=== PATIENT | female | born 1945 | race Caucasian/White ===

== ENCOUNTER → 2016-09-10 | Outpatient (CLI) | payer MEDICARE ==
--- NOTE | 2016-09-10 12:34 | MM ---
Reason for exam: additional evaluation requested from prior study. Last mammogram was performed 1 year ago. History: Patient is postmenopausal and has history of high-risk lesion on a previous biopsy at age 69. Family history of breast cancer in mother and breast cancer in 2 aunts. High risk MG stereo VAD BX LT of the left breast, September 10, 2015. Benign excisional biopsy of the left breast, 2016. Took estrogen for 3 years beginning at age 51. Physical Findings: Nurse did not find any significant physical abnormalities on exam. MG 3D Diag Mammo W/Cad AMBROSE Bilateral CC and MLO view(s) were taken. Prior study comparison: August 27, 2015, left breast MG work up mamm w CAD LT. August 23, 2015, bilateral MG 3d screening mammo w/cad. August 20, 2014, bilateral MG screening mammo w CAD. July 26, 2013, mammogram, performed at [facility]. There are scattered fibroglandular densities. Post excisional changes posterior central left breast. Asymmetric density superior anterior left breast. On spot view, it has an appearance similar to 2014 but more pronounced from 2016. A 6 month follow up recommended. These results were verbally communicated with the patient and result sheet given to the patient on 09/10/16. ASSESSMENT: Probably benign, BI-RAD 3 RECOMMENDATION: Follow-up diagnostic mammogram of the left breast in 6 months.
== END | disposition home or self-care (01) ==
LOC: RADMAMWWP 09:58
PROVIDERS: ATTEND Family Medicine
DX: R92.8 Other abnormal and inconclusive findings on diagnostic imaging of breast (principal)
CPT/HCPCS: G0204; G0279

== ENCOUNTER → 2017-03-15 | Outpatient (CLI) | payer MEDICARE ==
--- NOTE | 2017-03-15 10:53 | MM ---
Reason for exam: follow-up at short interval from prior study. Last mammogram was performed 6 months ago. History: Patient is postmenopausal and has history of high-risk lesion on a previous biopsy at age 69. Family history of breast cancer in mother and breast cancer in 2 aunts. High risk MG stereo VAD BX LT of the left breast, September 10, 2015. Benign excisional biopsy of the left breast, 2016. Took estrogen for 3 years beginning at age 51. Physical Findings: Nurse did not find any significant physical abnormalities on exam. MG 3D Diag Mammo W/Cad LT CC, MLO, and XCCM view(s) were taken of the left breast. Prior study comparison: September 10, 2016, bilateral MG 3d diag mammo w/cad AMBROSE. August 27, 2015, left breast MG work up mamm w CAD LT. There are scattered fibroglandular densities. The previous subareolar asymmetry is less defined. No significant new findings when compared with previous films. These results were verbally communicated with the patient and result sheet given to the patient on 03/15/17. ASSESSMENT: Negative, BI-RAD 1 RECOMMENDATION: Routine screening mammogram of both breasts in 6 months.
== END | disposition home or self-care (01) ==
LOC: RADMAMWWP 09:50
PROVIDERS: ATTEND Family Medicine
DX: R92.8 Other abnormal and inconclusive findings on diagnostic imaging of breast (principal)
CPT/HCPCS: G0206; G0279

== ENCOUNTER → 2017-11-15 | Outpatient (CLI) | payer MEDICARE ==
--- NOTE | 2017-11-17 10:58 | MM ---
Reason for exam: screening (asymptomatic). Last mammogram was performed 8 months ago. History: Patient is postmenopausal and has history of high-risk lesion on a previous biopsy at age 69. Family history of breast cancer in mother and breast cancer in 2 aunts. High risk MG stereo VAD BX LT of the left breast, September 10, 2015. Benign excisional biopsy of the left breast, 2015. Took estrogen for 3 years beginning at age 51. Physical Findings: A clinical breast exam by your physician is recommended on an annual basis and results should be correlated with mammographic findings. MG 3D Screening Mammo W/Cad Bilateral CC and MLO view(s) were taken. Prior study comparison: March 15, 2017, left breast MG 3d diag mammo w/cad LT. September 10, 2016, bilateral MG 3d diag mammo w/cad AMBROSE. The breast tissue is heterogeneously dense. This may lower the sensitivity of mammography. No suspicious abnormality. Post biopsy change on the left. No significant changes when compared with prior studies. ASSESSMENT: Benign, BI-RAD 2 RECOMMENDATION: Routine screening mammogram of both breasts in 1 year.
== END | disposition home or self-care (01) ==
LOC: RADMAMWWP 14:24
PROVIDERS: ATTEND Family Medicine
DX: Z12.31 Encounter for screening mammogram for malignant neoplasm of breast (principal)
CPT/HCPCS: 77063; 77067

== ENCOUNTER → 2018-12-23 | Outpatient (CLI) | payer MEDICARE ==
--- NOTE | 2018-12-28 09:11 | MM ---
Reason for exam: screening (asymptomatic). Last mammogram was performed 1 year and 1 month ago. History: Patient is postmenopausal and has history of high-risk lesion on a previous biopsy at age 69. Family history of breast cancer in mother and breast cancer in 2 aunts. High risk MG stereo VAD BX LT of the left breast, September 10, 2015. Benign excisional biopsy of the left breast, 2015. Took estrogen for 3 years beginning at age 51. Physical Findings: A clinical breast exam by your physician is recommended on an annual basis and results should be correlated with mammographic findings. MG 3D Screening Mammo W/Cad Bilateral CC and MLO view(s) were taken. Prior study comparison: November 15, 2017, bilateral MG 3d screening mammo w/cad. March 15, 2017, left breast MG 3d diag mammo w/cad LT. There are scattered fibroglandular densities. No significant changes when compared with prior studies. ASSESSMENT: Negative, BI-RAD 1 RECOMMENDATION: Routine screening mammogram of both breasts in 1 year.
== END | disposition home or self-care (01) ==
LOC: RADMAMWWP 13:02
PROVIDERS: ATTEND Family Medicine
DX: Z12.31 Encounter for screening mammogram for malignant neoplasm of breast (principal)
CPT/HCPCS: 77063; 77067

== ENCOUNTER → 2020-07-05 | Outpatient (CLI) | payer MEDICARE ==
--- NOTE | 2020-07-09 08:37 | MM ---
Reason for exam: screening (asymptomatic). Last mammogram was performed 1 year and 6 months ago. History: Patient is postmenopausal and has history of high-risk lesion on a previous biopsy at age 69. Family history of breast cancer in mother at age 82, breast cancer in maternal aunt, and breast cancer in aunt. High risk MG stereo VAD BX LT of the left breast, September 10, 2015. Benign excisional biopsy of the left breast, 2016. Took estrogen for 3 years beginning at age 51. Took progesterone for 3 years beginning at age 51. Physical Findings: A clinical breast exam by your physician is recommended on an annual basis and results should be correlated with mammographic findings. MG 3D Screening Mammo W/Cad Bilateral CC and MLO view(s) were taken. Prior study comparison: December 23, 2018, bilateral MG 3d screening mammo w/cad. November 15, 2017, bilateral MG 3d screening mammo w/cad. There are scattered fibroglandular densities. Global asymmetry is unchanged. No significant changes when compared with prior studies. ASSESSMENT: Benign, BI-RAD 2 RECOMMENDATION: Routine screening mammogram of both breasts in 1 year.
== END ==
LOC: RADMAMWWP 13:54
PROVIDERS: ATTEND Family Medicine
DX: Z12.31 Encounter for screening mammogram for malignant neoplasm of breast (principal)
CPT/HCPCS: 77063; 77067

== ENCOUNTER → 2021-10-02 | Outpatient (CLI) | payer MEDICARE ==
--- NOTE | 2021-10-03 12:39 | MM ---
Reason for Exam: Screening (asymptomatic). Last mammogram was performed 1 year(s) and 3 month(s) ago. Patient History: Menarche at age 16. First Full-Term at age 20. Left ovary removed at age 51. Right ovary removed at age 51. Hysterectomy at age 51. Postmenopausal. Estrogen for 3 years from age 51 until age 54. Progesterone for 3 years from age 51 until age 54. 2016, Benign Excisional Biopsy on the left side. 09/10/2015, High risk Core Biopsy on the left side. Maternal aunt had breast cancer. Maternal aunt had breast cancer. Mother had breast cancer, age 82. Risk Values: Jessy 5 year model risk: 4.5%. NCI Lifetime model risk: 10.1%. Prior Study Comparison: 11/15/2017 Bilateral Screening Mammogram, [facility]. 12/23/2018 Bilateral Screening Mammogram, [facility]. 07/05/2020 Bilateral Screening Mammogram, [facility]. Tissue Density: There are scattered fibroglandular densities. Findings: Analyzed By CAD. There are some punctate regional calcifications within the posterior inferior right breast 7:00 position which appear to be increasing in number. Closer evaluation pain medication views is recommended. Left breast appears stable. Overall Assessment: Incomplete: need additional imaging evaluation, BI-RAD 0 Management: Diagnostic Mammogram of the right breast. A negative mammogram report should not preclude additional follow up of suspicious palpable abnormalities. Patient should continue monthly self breast exam. A clinical breast exam by your physician is recommended on an annual basis and results should be correlated with mammographic findings. Electronically signed and approved by: Morgan Fletcher D.O. Radiologis
== END | disposition home or self-care (01) ==
LOC: RADMAMWWP 10:32
PROVIDERS: ATTEND Family Medicine
DX: Z12.31 Encounter for screening mammogram for malignant neoplasm of breast (principal); Z78.0 Asymptomatic menopausal state; Z80.3 Family history of malignant neoplasm of breast
CPT/HCPCS: 77063; 77067

== ENCOUNTER → 2021-10-07 | Outpatient (CLI) | payer MEDICARE ==
--- NOTE | 2021-10-07 14:32 | MM ---
Reason for Exam: Additional evaluation requested from abnormal screening. Last screening mammogram was performed less than 1 month ago. Patient History: Menarche at age 16. First Full-Term at age 20. Left ovary removed at age 51. Right ovary removed at age 51. Hysterectomy at age 51. Postmenopausal. Estrogen for 3 years from age 51 until age 54. Progesterone for 3 years from age 51 until age 54. 2016, Benign Excisional Biopsy on the left side. 09/10/2015, High risk Core Biopsy on the left side. Maternal aunt had breast cancer, age 60. Maternal aunt had breast cancer, age 62. Mother had breast cancer, age 82. Risk Values: Jessy 5 year model risk: 4.5%. NCI Lifetime model risk: 10.1%. Prior Study Comparison: 05/02/2012 Screening Mammogram, [facility]. 07/26/2013 Screening Mammogram, [facility]. 08/20/2014 Bilateral Screening Mammogram, [facility]. 08/23/2015 Bilateral Screening Mammogram, [facility]. 08/27/2015 Left Diagnostic Mammogram, [facility]. 09/10/2016 Bilateral Diagnostic Mammogram, [facility]. 11/15/2017 Bilateral Screening Mammogram, [facility]. 12/23/2018 Bilateral Screening Mammogram, [facility]. 07/05/2020 Bilateral Screening Mammogram, [facility]. 10/02/2021 Bilateral MG 3D screening mammo w/cad, [facility]. Tissue Density: Right: There are scattered fibroglandular densities. Findings: Analyzed By CAD. Far posterior inferior loosely grouped/regional microcalcifications show slight increase from older priors. These appear round and punctate and a benign etiology is suggested. Six-month follow-up recommended. Overall Assessment: Probably benign, BI-RAD 3 Management: Diagnostic Mammogram of the right breast in 6 months. 1. Six-month follow-up diagnostic right breast mammogram for far posterior loosely grouped/regional microcalcifications that have slightly increased. Intubation should continue monthly self breast exams. 3. This exam should not preclude additional follow-up of suspicious palpable abnormalities. Results were given to the patient verbally at the time of exam. Electronically signed and approved by: Britany Shahid M.D. Radiologist
== END | disposition home or self-care (01) ==
LOC: RADMAMWWP 13:35
PROVIDERS: ATTEND Family Medicine
DX: R92.8 Other abnormal and inconclusive findings on diagnostic imaging of breast (principal); Z80.3 Family history of malignant neoplasm of breast
CPT/HCPCS: 77065; G0279; 77061

== ENCOUNTER → 2022-03-17 | Outpatient (CLI) | payer MEDICARE ==
[2022-03-17 15:39] LABS: HCT 42.4 % (34.0-46.0); Hypochromasia Slight; MCH 31.7 pg (25.0-35.0); MCV 96.1 fL (80.0-100.0); Mean Platelet Volume 14.2; Platelet Count 139 k/uL (150-450); RBC 4.41 m/uL (3.80-5.40); RDW 12.3 % (11.5-15.5); WBC 8.1 k/uL (3.8-10.6)
[2022-03-17 15:49] LABS: African American GFR (CKD) 77 (>60 ml/min/1.73 sqM); Anion Gap 8 mmol/L; Blood Urea Nitrogen 17 mg/dL (7-17); Calcium 9.4 mg/dL (8.4-10.2); Carbon Dioxide 27 mmol/L (22-30); Chloride 104 mmol/L (98-107); Glucose 112 mg/dL (74-99); Non-African American GFR(CKD) 67 (>60 ml/min/1.73 sqM); Sodium 139 mmol/L (137-145)
[2022-03-17 16:03] LABS: INR 0.9 (<1.2); Partial Thromboplastin Time 25.1 sec (22.0-30.0); Prothrombin Time 10.2 sec (9.0-12.0)
== END | disposition home or self-care (01) ==
LOC: LABPAT 14:16
PROVIDERS: ATTEND Internal Medicine Interventional Cardiology
DX: I25.10 Atherosclerotic heart disease of native coronary artery without angina pectoris (principal)
CPT/HCPCS: 80048; 85027; 85610; 85730

== ENCOUNTER 2022-03-18 05:40 | Inpatient (IN) | payer MEDICARE ==
[2022-03-18] MEDS ORDERED: NITROGLYCERIN SL TABS 0.4 MG TAB SUBLINGUAL PRN (05:51)
[2022-03-18] MEDS ORDERED: ALPRAZolam 0.5 MG TAB PO PRN (05:51)
[2022-03-18] MEDS ORDERED: ALPRAZolam 0.25 MG TAB PO PRN (05:51)
[2022-03-18] MEDS: SODIUM CHLORIDE 0.9% 1,000 ML in EMPTY BAG 1 BAG IV SCH ×2 (06:20→16:48)
[2022-03-18] MEDS ORDERED: HEPARIN SODIUM,PORCINE 10,000 UNIT in SODIUM CHLORIDE 0.9% 1,000 ML IRRIGATION PRN (07:00)
[2022-03-18] MEDS ORDERED: HEPARIN SODIUM,PORCINE 2,500 UNIT in SODIUM CHLORIDE 0.9% 250 ML IRRIGATION PRN (07:00)
[2022-03-18] MEDS ORDERED: ASPIRIN 325 MG TAB PO ONE (07:00)
[2022-03-18] MEDS ORDERED: ATORVASTATIN 80 MG TAB PO ONE (07:00)
[2022-03-18] MEDS ORDERED: VERAPAMIL 2.5 MG/ML 2 ML AMP ONE ×2 (07:16→07:37)
[2022-03-18] MEDS ORDERED: MIDAZOLAM 2 MG/2 ML VIAL IV ONE (07:23)
[2022-03-18] MEDS ORDERED: HEPARIN SODIUM 1,000 UN/ML (10ML VL) ONE (07:24)
[2022-03-18] MEDS ORDERED: LIDOCAINE 1% INJ 10MG/ML (5 ML VIAL-PF) SQ ONE (07:24)
[2022-03-18] MEDS ORDERED: VERAPAMIL SYRINGE (5 MG/10 ML) INTRAARTER ONE (07:26)
[2022-03-18] MEDS ORDERED: fentaNYL (PF) 50 MCG/ML 2 ML AMP ONE (07:27)
[2022-03-18] MEDS ORDERED: fentaNYL (PF) 50 MCG/ML 2 ML AMP IV ONE (07:29)
[2022-03-18] MEDS ORDERED: HEPARIN SODIUM 1,000 UN/ML (10ML VL) IV ONE ×3 (07:29→09:45)
[2022-03-18] MEDS ORDERED: HEPARIN SOD,PORK IN 0.45% NACL 25,000 UNIT in 0.45% NACL 1 250ML.BAG IV SCH (07:45)
[2022-03-18] MEDS ORDERED: IOPAMIDOL-370 100ML BTL INJ ONE (07:46)
[2022-03-18] MEDS ORDERED: ATORVASTATIN 80 MG TAB PO STA (07:48)
--- NOTE | 2022-03-18 08:31 | CC ---
CARDIAC CATHETERIZATION REPORT PROCEDURES: Left heart catheterization, coronary angiography. PERFORMED BY: Dr. Jeff Barajas Moderate conscious sedation time was 18 minutes. The patient was administered Versed. Oxygen saturation, hemodynamics, and EKGs were monitored closely. CLINICAL INFORMATION: Mrs. Maria Isabel Shirley is a 76-year-old lady with a known history of CAD, suffered from an acute inferior ST-elevation DC in January 2014. At that time, I performed stenting of distal RCA with excellent result. She had no significant disease in left main, LAD, or circumflex. She has been doing well until about 4 days ago when she started having episodes of chest tightness, pressure, and shortness of breath, requiring multiple sublingual nitroglycerin daily. I saw her in the office yesterday and noted that she was also in atrial fibrillation with a controlled ventricular rate. I advised prompt cardiac cath and brought in for the procedure early this morning. Risks, benefits, options, rationale were explained to the patient and her daughter. PROCEDURE NOTE: Under local anesthesia and strict aseptic precautions, a 6-Kinyarwanda introducer was placed in the right radial artery. Using a JL3.5 and JR4 catheters, I performed coronary angiography, and the same right Naida catheter was used to check LV pressure, but I did not perform an LV-gram. The sheath was taken out, and a TR band applied as per protocol. The patient was sent to the room in a stable condition. I have advised her to have urgent aortocoronary bypass surgery given her significant severe CAD and left main stenosis of 95% with thrombus. CARDIAC CATHETERIZATION FINDINGS: The left ventricular end-diastolic pressure was about 15 mmHg, and there was a 5 to 7 mm gradient on pullback. CORONARY ANGIOGRAPHY FINDINGS: RIGHT CORONARY ARTERY: This is a very dominant vessel that was stented in 2013. Distally the stented area has about a 55% narrowing with some haziness. It bifurcates into PDA and PLV. PLV has a 40% narrowing. PDA has no significant disease. There is some haziness in the stented area, and the lesion is about 55% to 60%. LEFT MAIN CORONARY ARTERY: This is a short patent vessel. In the proximal and mid portion, no significant disease. Distally just before bifurcation, there is a 95% stenosis with thrombus. The stenosis extends from the left main into the LAD and also into the circumflex. LEFT ANTERIOR DESCENDING CORONARY ARTERY: This vessel has a 90% stenosis as it comes off from the left main, and the stenosis extends from the left main into the LAD in the ostial portion. Beyond it, the caliber of LAD is good. It gives off a good-sized diagonal branch proximally, runs toward the apex. Flow is somewhat sluggish. However, the LAD has a 90% stenosis. Left main has a 95% stenosis with thrombus. LEFT POSTERIOR CIRCUMFLEX CORONARY ARTERY: This is a technically nondominant vessel, but is a large good-sized obtuse marginal. This vessel has ostial lesion of about 95% with haziness suggestive of thrombus. The circumflex is a good-sized graftable vessel. Left ventriculogram was not performed. FINAL IMPRESSION: This patient has slightly elevated filling pressures. A gradient of about 5 to 10 mmHg across the aortic valve. There is a 95% distal left main, proximal left anterior descending, and proximal circumflex lesion with haziness and thrombus. This is a significant progression of disease. Right coronary artery in the previous stented area in the distal portion has lot of haziness with a 60% narrowing. The posterior descending artery and PLV are of good size, and right coronary artery is dominant. RECOMMENDATIONS: I am recommending urgent aortocoronary bypass surgery with grafts to LAD, circumflex marginal, and also to the PDA and PLV branches of RCA, which is a super dominant vessel. The patient will be on a heparin drip, and her medicines will be resumed. She will go to the ICU. I am recommending urgent aortocoronary bypass surgery, preferably today. I will be speaking to Dr. Squires, with whom I already briefly spoke and mentioned to him about the need for urgent surgery. MMODL / IJN: [id number] /
[2022-03-18 08:35] LABS: ALT 20 U/L (4-34); AST 23 U/L (14-36); African American GFR (CKD) 80 (>60 ml/min/1.73 sqM); Albumin 4.1 g/dL (3.5-5.0); Alkaline Phosphatase 90 U/L (38-126); Anion Gap 7 mmol/L; Blood Urea Nitrogen 15 mg/dL (7-17); Calcium 9.2 mg/dL (8.4-10.2); Carbon Dioxide 25 mmol/L (22-30); Chloride 107 mmol/L (98-107); Glucose 131 mg/dL (74-99); Magnesium 1.9 mg/dL (1.6-2.3); Non-African American GFR(CKD) 70 (>60 ml/min/1.73 sqM); Potassium 4.1 mmol/L (3.5-5.1); Sodium 139 mmol/L (137-145); Total Protein 6.8 g/dL (6.3-8.2)
[2022-03-18] MEDS ORDERED: METOPROLOL TARTRATE 12.5 MG TAB PO SCH (09:00)
[2022-03-18 09:01] LABS: HCT 39.5 % (34.0-46.0); HGB 13.2 gm/dL (11.4-16.0); MCH 31.4 pg (25.0-35.0); MCHC 33.3 g/dL (31.0-37.0); MCV 94.3 fL (80.0-100.0); Mean Platelet Volume 13.9; Platelet Count 126 k/uL (150-450); RBC 4.19 m/uL (3.80-5.40); RDW 12.6 % (11.5-15.5); WBC 8.4 k/uL (3.8-10.6)
[2022-03-18 09:03] LABS: Glucose,Whole Blood 118 mg/dL (70-110)
--- NOTE | 2022-03-18 09:10 | P.GSCN ---
History of Present Illness Consult date: 03/18/22 Reason for Consult: Coronary artery disease with left main disease Requesting physician: Jeff Barajas History of present illness: This is 76-year-old female patient who follows in the outpatient setting with Dr. Patino for primary care and Dr. Barajas for cardiology. She has a previous medical history of coronary artery disease with myocardial infarction in 2014 status post PCI to the RCA, hypertension, hyperlipidemia, new onset slow atrial fibrillation, remote history of pulmonary embolism, remote history of pneumonia, never smoker, morbid obesity, and family history of premature coronary artery disease with father having multiple myocardial infarctions before the age of 60. Apparently she has been symptomatic with shortness of breath and chest pain over the previous one and a half months, worse with exertion and similar to when she had her myocardial production in 2014. She has been utilizing sublingual nitro quite frequently which does relieve her symptoms, and she was started on Imdur recently with some improvement. She was seen yesterday in the office by Dr. Barajas and recommended to undergo heart catheterization which was completed today and which demonstrated significant distal left main stenosis 95% with thrombus. Due to these findings consultation was placed to Dr. Squires from cardiothoracic surgery for surgical recommendations. Of note she did have a transthoracic echocardiogram in the office in January 2022 demonstrating EF 55%, grade 2 diastolic dysfunction, moderate mitral regurgitation, and mild tricuspid regurgitation. She has been maintained on aspirin, statin, beta sherry, Imdur, and enalapril. Review of Systems Review of systems was completed and is negative except as noted - Cardiovascular Reports as per HPI, Reports chest pain, Reports dyspnea on exertion, Reports shortness of breath Past Medical History Past Medical History: Coronary Artery Disease (CAD), Chest Pain / Angina, Hyperlipidemia, Hypertension, Myocardial Infarction ([place]), Pulmonary Embolus ([place]), Sleep Apnea/CPAP/BIPAP Last Myocardial Infarction Date:: 02/18/14 History of Any Multi-Drug Resistant Organisms: None Reported Past Surgical History: Heart Catheterization With Stent, Hysterectomy Past Anesthesia/Blood Transfusion Reactions: No Reported Reaction Date of Last Stent Placement:: 02/18/14 Past Psychological History: No Psychological Hx Reported Smoking Status: Never smoker Past Alcohol Use History: None Reported Past Drug Use History: None Reported - Past Family History Father Family Medical History: Myocardial Infarction ([place]) Additional Family Medical History / Comment(s): Premature coronary artery disease, multiple myocardial infarctions, at 66 Mother Family Medical History: Cancer, Vascular Disorder Medications and Allergies Home Medications Medication Instructions Recorded Confirmed Type Meclizine [Antivert] 12.5 mg PO TID PRN 02/18/14 03/18/22 History Multivitamins, Thera [Multivitamin 1 each PO DAILY@1200 02/18/14 03/18/22 History (formulary)] Humbird-3 Fatty Acids/Fish Oil [Fish 1 each PO DAILY 02/18/14 03/18/22 History Oil 1,000 mg Softgel] Omeprazole [PriLOSEC] 20 mg PO AC-[id number] 02/18/14 03/18/22 History hydroCHLOROthiazide [Hydrodiuril] 25 mg PO DAILY 02/18/14 03/18/22 History Enalapril [Vasotec] 10 mg PO BID #60 tab 02/20/14 03/18/22 Rx Nitroglycerin Sl Tabs [Nitrostat] 0.4 mg SUBLINGUAL Q5M PRN #25 tab 02/20/14 03/18/22 Rx ALPRAZolam [Xanax] 0.5 mg PO HS PRN 03/18/22 03/18/22 History Aspirin [Adult Low Dose Aspirin EC] 81 mg PO DAILY 03/18/22 03/18/22 History Atorvastatin [Lipitor] 40 mg PO HS 03/18/22 03/18/22 History Calcium Carbonate [Calcium] 500 mg PO DAILY 03/18/22 03/18/22 History Enalapril Maleate 10 mg PO BID 03/18/22 03/18/22 History Isosorbide Mononitrate ER [Imdur] 30 mg PO DAILY 03/18/22 03/18/22 History Melatonin [Melatonin Chew] 2.5 mg PO HS 03/18/22 03/18/22 History Metoprolol Succinate [Metoprolol 12.5 mg PO DAILY 03/18/22 03/18/22 History Succinate ER] traMADol HCL 50 mg PO Q6H 03/18/22 03/18/22 History Allergies Allergy/AdvReac Type Severity Reaction Status Date / Time No Known Allergies Allergy Verified 02/18/14 11:09 Surgical - Exam Vital Signs Temp Pulse Resp BP Pulse Ox 98.4 F 56 L 18 164/88 97 03/18/22 06:26 03/18/22 06:26 03/18/22 06:26 03/18/22 06:26 03/18/22 06:26 CONSTITUTIONAL: Awake and alert, appears comfortable, cooperative, well- developed, well-nourished, no pain, no acute distress EYES: Pupils equal, round, reactive to light, normal ocular movement ENT: Moist mucous membranes without oral lesions present NECK: No masses, no bruits, trachea midline RESPIRATORY: Lungs sounds clear to auscultation bilaterally. Respirations even, nonlabored. Currently on room air with oxygen saturation 97%. Strong cough. No chest wall deformities. No clubbing or cyanosis present CARDIOVASCULAR: S1, S2 present. Slow, irregular rate and rhythm, slow atrial fibrillation on telemetry. Palpable peripheral pulses bilaterally. No edema present. No calf pain or tenderness noted. Lower extremity spider veins present. Left radial Niles's test less than 8 seconds. GASTROINTESTINAL: Abdomen soft, nontender, nondistended, obese without masses or organomegaly noted. There is no rebound or guarding present. Active bowel sounds present 4 quadrants. GENITOURINARY: Deferred INTEGUMENTARY: Skin is warm and dry with evidence of good perfusion. NEUROLOGIC: Cranial nerves II through XII intact, normal coordination, no obvious motor or sensory deficits, speech is normal MUSKULOSKELETAL: Able to move all extremities, strength equal bilaterally, normal posture PSYCHIATRIC: Alert and oriented to person place and time, appropriate affect, intact judgment and insight Results - Labs 03/18/22 07:55 Abnormal Lab Results - Last 24 Hours (Table) 03/18/22 Range/Units 07:55 Glucose 131 H (74-99) mg/dL Diabetes panel 03/18/22 Range/Units 07:55 Sodium 139 (137-145) mmol/L Potassium 4.1 (3.5-5.1) mmol/L Chloride 107 (98-107) mmol/L Carbon Dioxide 25 (22-30) mmol/L BUN 15 (7-17) mg/dL Creatinine 0.83 (0.52-1.04) mg/dL Glucose 131 H (74-99) mg/dL Calcium 9.2 (8.4-10.2) mg/dL AST 23 (14-36) U/L ALT 20 (4-34) U/L Alkaline Phosphatase 90 (38-126) U/L Total Protein 6.8 (6.3-8.2) g/dL Albumin 4.1 (3.5-5.0) g/dL Calcium panel 03/18/22 Range/Units 07:55 Calcium 9.2 (8.4-10.2) mg/dL Albumin 4.1 (3.5-5.0) g/dL Pituitary panel 03/18/22 Range/Units 07:55 Sodium 139 (137-145) mmol/L Potassium 4.1 (3.5-5.1) mmol/L Chloride 107 (98-107) mmol/L Carbon Dioxide 25 (22-30) mmol/L BUN 15 (7-17) mg/dL Creatinine 0.83 (0.52-1.04) mg/dL Glucose 131 H (74-99) mg/dL Calcium 9.2 (8.4-10.2) mg/dL Adrenal panel 03/18/22 Range/Units 07:55 Sodium 139 (137-145) mmol/L Potassium 4.1 (3.5-5.1) mmol/L Chloride 107 (98-107) mmol/L Carbon Dioxide 25 (22-30) mmol/L BUN 15 (7-17) mg/dL Creatinine 0.83 (0.52-1.04) mg/dL Glucose 131 H (74-99) mg/dL Calcium 9.2 (8.4-10.2) mg/dL Total Bilirubin 1.0 (0.2-1.3) mg/dL AST 23 (14-36) U/L ALT 20 (4-34) U/L Alkaline Phosphatase 90 (38-126) U/L Total Protein 6.8 (6.3-8.2) g/dL Albumin 4.1 (3.5-5.0) g/dL - Imaging Additional studies: Heart catheterization films reviewed with Dr. Squires Assessment and Plan Assessment: 1. Significant left main coronary artery disease, symptomatic 2. History of coronary artery disease with myocardial infarction in 2014 status post PCI to the RCA 3. Hypertension 4. Hyperlipidemia, treated 5. New onset slow atrial fibrillation 6. Remote history of pulmonary embolism 7. Remote history of pneumonia 8. Never smoker 9. Morbid obesity 10. Family history of premature coronary artery disease with father having multiple myocardial infarctions before the age of 60 Plan: The patient was seen and examined at the bedside with Dr. Squires. The case was discussed between Dr. Squires and Dr. Baraajs. Preoperative testing was initiated. The usual perioperative course of open heart surgery was discussed in detail with the patient and her daughters, risks and benefits reviewed, all questions were answered. We are waiting echocardiogram to look at her mitral valve. Recommend continuing aspirin, statin, beta sherry, IV heparin. We do recommend coronary artery bypass grafting with left internal mammary artery, left radial artery harvest, possible endoscopic vein harvest, left atrial appendage ligation, timing of surgery to be determined depending on whether or not we need to add mitral valve repair. More recommendations to follow. Thank you Dr. Barajas for this consult. I have personally seen and examined the patient, performed the documentation and the assessment and plan as written. Number of minutes spent on the visit: 30. JAMIE MckenzieC
[2022-03-18 09:21] LABS: Appearance,Urine Clear (Clear); Bacteria,Urine Rare /hpf; Bilirubin,Urine Negative (Negative); Blood,Urine Negative (Negative); Color,Urine Colorless; Glucose,Urine (UA) Negative (Negative); Ketones,Urine Negative (Negative); Leukocyte Esterase,Urine Moderate (Negative); Nitrite,Urine Negative (Negative); PH, Urine 5.5 (5.0-8.0); Protein,Urine Negative (Negative); RBC,Urine <1 /hpf (0-5); Specific Gravity,Urine 1.015 (1.001-1.035); Squamous Epithelial Cell,Urine 1 /hpf (0-4); Urobilinogen,Urine <2.0 mg/dL (<2.0); WBC,Urine 3 /hpf (0-5)
[2022-03-18] MEDS ORDERED: MD COMMUNICATION TO PHARMACY 1 EACH MISC PO ONE (09:27)
[2022-03-18] MEDS ORDERED: MUPIROCIN 2% OINT 22 GM TUBE NASAL SCH (09:30)
--- NOTE | 2022-03-18 09:37 | CA ---
Transthoracic Echo Report Name: Maria Isabel Shirley Age: 76 Gender: F : 1945 Exam Date: 03/18/2022 08:08 Exam Location: [facility] Ht (in): 67 Wt (lb): 256 Ordering Physician: Jeff Barjaas MD ([id number]) Attending/Referring Phys: Jeff Barajas MD ([id number]) Neurology Epilepsy Physician Allyson Lopez RDCS Procedure CPT: Indications: left main disease/urgent CABG Cardiac Hx: Technical Quality: Contrast 1: Total Dose (mL): Contrast 2: Total Dose (mL): MEASUREMENTS (Male / Female) Normal Values 2D ECHO LV Diastolic Diameter PLAX 4.9 cm 4.2 - 5.9 / 3.9 - 5.3 cm LV Systolic Diameter PLAX 3.0 cm IVS Diastolic Thickness 1.1 cm 0.6 - 1.0 / 0.6 - 0.9 cm LVPW Diastolic Thickness 1.0 cm 0.6 - 1.0 / 0.6 - 0.9 cm LV Relative Wall Thickness 0.4 RV Internal Dim ED PLAX 3.4 cm LA Systolic Diameter LX 4.4 cm 3.0 - 4.0 / 2.7 - 3.8 cm LA Volume 64.0 cm??? 18 - 58 / 22 - 52 cm??? M-MODE Aortic Root Diameter MM 3.1 cm MV E Point Septal Separation 0.7 cm AV Cusp Separation MM 1.9 cm DOPPLER AV Peak Velocity 139.1 cm/s AV Peak Gradient 7.7 mmHg MV Area PHT 5.2 cm??? Mitral E Point Velocity 121.7 cm/s Mitral A Point Velocity 76.1 cm/s Mitral E to A Ratio 1.6 MV Deceleration Time 147.1 ms MV E' Velocity 5.8 cm/s Mitral E to MV E' Ratio 20.8 TR Peak Velocity 200.6 cm/s TR Peak Gradient 16.1 mmHg Right Ventricular Systolic Press 20.7 mmHg FINDINGS Left Ventricle Left ventricular ejection fraction is estimated at 40-45 %. Left ventricular cavity size normal. . Mildly increased septal wall thickness. Mildly increased posterior wall thickness. Mildly reduced global left ventricular systolic function. Right Ventricle Mild right ventricular dilatation. Right ventricular systolic pressure within normal limits. Right Atrium Normal right atrial size. Left Atrium Moderately increased left atrial diameter. Moderately increased left atrial volume. No evidence for an atrial septal defect. Mitral Valve Structurally normal mitral valve. Structurally normal mitral valve. No mitral stenosis,or prolapse. Trace to mild mitral regurgitation. Aortic Valve Trileaflet aortic valve. No aortic valve stenosis or regurgitation. Focal thickening of the aortic valve cusps. Tricuspid Valve Structurally normal tricuspid valve. Trace to mild tricuspid regurgitation. Pulmonic Valve Structurally normal pulmonic valve. No pulmonic regurgitation. No pulmonic stenosis. Pericardium Normal pericardium. No pericardial effusion. Aorta Normal size aortic root and proximal ascending aorta. CONCLUSIONS Left ventricular ejection fraction 40-45% Mild increased left ventricular wall thickness Moderately dilated left atrium Trace to mild mitral regurgitation Trace to mild tricuspid regurgitation RVSP 20 No pericardial effusion Previewed by: Dr. Warren Crenshaw DO (Electronically Signed) Final Date: 18 March 2022 09:36
[2022-03-18] MEDS ORDERED: PHENYLEPHRINE 10 MG/ML VIAL IV ONE (09:45)
[2022-03-18] MEDS ORDERED: MAGNESIUM SULFATE 16.24 MEQ in EMPTY SYRINGE 1 SYR IV ONE (09:45)
[2022-03-18] MEDS ORDERED: HEPARIN SODIUM,PORCINE 5,000 UNIT in SODIUM CHLORIDE 0.9% 500 ML 500 ML IV ONE (09:45)
[2022-03-18] MEDS ORDERED: CALCIUM CHLORIDE 100 MG/ML 10 ML SYRINGE IVP ONE (09:45)
[2022-03-18] MEDS ORDERED: PROTAMINE SULFATE 250 MG in EMPTY BAG 1 BAG IV ONE (09:45)
[2022-03-18] MEDS ORDERED: MANNITOL 25% 12.5 GM/50 ML VIAL IV ONE ×2 (09:45)
[2022-03-18] MEDS ORDERED: PHENYLEPHRINE 40 MG in SODIUM CHLORIDE 0.9% 250 ML IV ONE (09:45)
[2022-03-18] MEDS ORDERED: ALBUMIN HUMAN 5% 500 ML in EMPTY BAG 1 BAG IVPB ONE ×6 (09:45)
[2022-03-18] MEDS ORDERED: CARDIOPLEGIC SOLN (K+ 16 MEQ/L 1,000 ML with SOD BICARB SYR 8.4% (1 MEQ/ML) 20 ML, LIDO... PERFUSION NR ×3 (09:45)
[2022-03-18] MEDS ORDERED: CHLORHEXIDINE GLUCONATE 15 ML CUP MUCOUS MEM ONE (09:45)
[2022-03-18] MEDS ORDERED: CLEVIDIPINE BUTYRATE 25 MG in EMPTY BAG 1 BAG IV SCH (09:45)
[2022-03-18] MEDS ORDERED: ceFAZolin 1,000 MG in SODIUM CHLORIDE 0.9% IRRIGATIO 1,000 ML IRRIGATION ONE (09:45)
[2022-03-18] MEDS ORDERED: NITROGLYCERIN-D5W PMX 50 MG in DEXTROSE/WATER 1 250ML.BAG IV SCH ×2 (09:45→16:23)
[2022-03-18] MEDS ORDERED: ALBUMIN HUMAN 25% 50 ML in EMPTY BAG 1 BAG IVPB ONE (09:45)
[2022-03-18] MEDS ORDERED: NITROGLYCERIN-D5W PMX 25 MG/250 ML BTL IV ONE (09:45)
[2022-03-18] MEDS ORDERED: PROTAMINE SULFATE 10 MG/ML 25 ML VIAL IV ONE (09:45)
[2022-03-18] MEDS ORDERED: SODIUM BICARB 8.4% 50 ML SYR (1 MEQ/ML) IV ONE (09:45)
[2022-03-18] MEDS ORDERED: NOREPINEPHRINE 4 MG in SODIUM CHLORIDE 0.9% 250 ML IV SCH (09:45)
[2022-03-18] MEDS ORDERED: INSULIN REGULAR 100 UNIT in SODIUM CHLORIDE 0.9% 100 ML IV SCH (09:45)
[2022-03-18] MEDS ORDERED: PAPAVERINE 360 MG in SODIUM CHLORIDE 0.9% 90 ML IV ONE (09:45)
[2022-03-18] MEDS ORDERED: TRANEXAMIC ACID 2,000 MG in SODIUM CHLORIDE 0.9% 80 ML IV ONE ×2 (09:45→10:00)
[2022-03-18] MEDS ORDERED: DILTIAZEM 125 MG in SODIUM CHLORIDE 0.9% 100 ML IV SCH ×2 (09:45→17:30)
[2022-03-18] MEDS ORDERED: LACTATED RINGERS 1,000 ML IV SCH (10:00)
--- NOTE | 2022-03-18 10:28 | XR ---
EXAMINATION TYPE: XR chest 1V portable DATE OF EXAM: 03/18/2022 HISTORY: Shortness of breath. COMPARISON: 02/18/2014 TECHNIQUE: Single view of the chest is submitted. FINDINGS: Demonstrated are scattered senescent parenchymal change. There is no evidence for focal infiltrate. The heart is stable. Hilar and mediastinal structures are within normal limits. Degenerative changes are seen of the dorsal spine. IMPRESSION: 1. Chronic changes without evidence for acute pulmonary disease.
--- NOTE | 2022-03-18 10:49 | US ---
EXAMINATION TYPE: US carotid duplex BILAT DATE OF EXAM: 03/18/2022 COMPARISON: NONE CLINICAL HISTORY: preop cardiac surgery. HTN controlled with meds. No hx TIA. TECHNIQUE: Carotid duplex ultrasound examination. Indirect Doppler criteria was utilized. FINDINGS: EXAM MEASUREMENTS: RIGHT: Peak Systolic Velocity (PSV) cm/sec ----- Right CCA: 76.5 ----- Right ICA: 83.4 ----- Right ECA: 114.5 ICA/CCA ratio: 1.1 RIGHT: End Diastole cm/sec ----- Right CCA: 7.3 ----- Right ICA: 12.0 ----- Right ECA: 0.0 LEFT: Peak Systolic Velocity (PSV) cm/sec ----- Left CCA: 63.6 ----- Left ICA: 96.9 ----- Left ECA: 205.8 ICA/CCA ratio: 1.5 LEFT: End Diastole cm/sec ----- Left CCA: 7.6 ----- Left ICA: 12.8 ----- Left ECA: 0.0 VERTEBRALS (direction of flow): Right Vertebral: Antegrade Left Vertebral: Antegrade Rhythm: Arrhythmia FINANCE AND ADMINISTRATION MANAGER NOTES: Wall thickening. Elevated left ECA velocity. Plaque seen in left bulb and in rig ht CCA. IMPRESSION: Less than 50% stenosis of the bilateral carotid systems. Criteria for Assigning % of Stenosis / Diameter reduction (Estimation based on the indirect measurements of the internal carotid artery velocities (ICA PSV). 1. Normal (no stenosis)=ICA PSV < 125 cm/s: ratio < 2.0: ICA EDV<40 cm/s. 2. Less than 50% stenosis=ICA PSV < 125 cm/s: ratio < 2.0: ICA EDV<40 cm/s. 3. 50 to 69% stenosis=ICA PSV of 125 to 230 cm/s: ration 2.0 ? 4.0: ICA EDV 40-100 cm/s. 4. Greater than 70% stenosis to near occlusion= ICA PSV > 230 cm/s: ratio > 4.0: ICA EDV > 100 cm/s. 5. Near occlusion= ICA PSV velocities may be low or undetectable: variable ratio and ICA EDV. 6. Total occlusion=unable to detect flow.
[2022-03-18] MEDS ORDERED: PROPOFOL 10 MG/ML 20 ML VIAL IV ONE (10:52)
[2022-03-18] MEDS ORDERED: ALBUMIN HUMAN 5% (25gm) 500 ML VIAL IVPB ONE (10:52)
[2022-03-18] MEDS ORDERED: HEPARIN SODIUM,PORCINE 10,000 UNIT/ML 1 ML VIAL ONE (10:52)
[2022-03-18] MEDS ORDERED: SODIUM CHLORIDE 0.9% 100 ML BAG ONE (10:52)
[2022-03-18] MEDS ORDERED: PHENYLEPHRINE-0.9% NACL SYG 1,000 MCG/10 ML SYRINGE ONE (10:52)
[2022-03-18] MEDS ORDERED: TRANEXAMIC ACID IN NACL,ISO-OS 1,000 MG/100 ML BAG ONE (10:52)
[2022-03-18] MEDS ORDERED: fentaNYL (PF) 50 MCG/ML 50 ML VIAL ONE (10:52)
[2022-03-18] MEDS ORDERED: ceFAZolin 1,000 MG VIAL ONE (10:52)
[2022-03-18] MEDS ORDERED: PROTAMINE SULFATE 10 MG/ML 5 ML VIAL IV ONE (10:52)
[2022-03-18] MEDS ORDERED: SODIUM CHLORIDE 0.9% (PF) 10 ML VIAL ONE (10:52)
[2022-03-18] MEDS ORDERED: MIDAZOLAM HCL 10 MG/10 ML VIAL ONE (10:52)
[2022-03-18] MEDS ORDERED: NITROGLYCERIN-D5W PMX 50 MG/250 ML BOTTLE IV ONE (10:52)
[2022-03-18] MEDS ORDERED: SODIUM CHLORIDE 0.9% IRRIG 1,000 ML BTL IRRIGATION ONE (10:52)
[2022-03-18 12:18] LABS: ABG Base Excess 0.1 mmol/L; ABG Glucose Whole Blood 119 mg/dL (75-99); ABG HCO3 24 mmol/L (21-25); ABG Hematocrit 35 % (34.0-46.0); ABG Ionized Calcium 4.8 mg/dL (4.5-5.3); ABG Oxygen Saturation 99.4 % (94-97); ABG PCO2 36 mmHg (35-45); ABG PH 7.43 (7.35-7.45); ABG PO2 255 mmHg (83-108); ABG Potassium Whole Blood 3.8 mmol/L (3.4-4.5); ABG Sodium Whole Blood 142 mmol/L (135-146); ABG TCO2 25 mmol/L (19-24)
--- NOTE | 2022-03-18 12:47 | P.ANPRN ---
Procedure Note - Anesthesia - Invasive Line Arterial Line Time Out Performed: Yes (1121) Date of Procedure: 03/18/22 Time of Procedure: : Location of Patient: Phase I Preparation: Sterile Prep, Sterile Dressing Arterial Line Location: Brachial (right) Ultrasound Used: Yes Purpose - Visualization and Identification of Vasculature: Yes Needle Guage: 20g x 5 in catheter over wire Image Stored and Saved: Yes Narrative: Central line placement per sterile protocol utilized.
--- NOTE | 2022-03-18 12:49 | P.ANPRN ---
Procedure Note - Anesthesia - Invasive Line Right Central Line Time Out Performed: Yes (1122) Date of Procedure: 03/18/22 Time of Procedure: 11:33 Location of Patient: Phase I Preparation: Sterile Prep, Sterile Dressing Arterial Line Location: Brachial Ultrasound Used: Yes Purpose - Visualization and Identification of Vasculature: Yes Needle Guage: 18g angio Image Stored and Saved: Yes Narrative: Central line placement per sterile protocol utilized. +local +cvp +jwire +uneventful dilation and introduction right IJ Cordis
--- NOTE | 2022-03-18 12:50 | P.ANPRN ---
Procedure Note - Anesthesia - Invasive Line Gaylord My Time Out Performed: Yes (1122) Date of Procedure: 03/18/22 Time of Procedure: 11:44 Location of Patient: Phase I Preparation: Sterile Prep Arterial Line Location: Brachial Ultrasound Used: No Purpose - Visualization and Identification of Vasculature: No Needle Guage: 8.5f Image Stored and Saved: No Narrative: Central line placement per sterile protocol utilized. Gaylord floated in sheath in one attempt. --> wedge at 50cm. b/d. w/d 6cm to PA . Secured at 44cm.
[2022-03-18 13:15] LABS: Large Platelets Present; Lymphocytes # (M) 3.11 k/uL (1.0-4.8); Monocytes # (M) 0.17 k/uL (0-1.0); Neutrophils # (M) 5.12 k/uL (1.3-7.7); Neutrophils % (M) 61 %; Nucleated Red Blood Cells 0 /100 WBC (0-0); Total Cells Counted 100
[2022-03-18 13:32] LABS: ABG Base Excess -0.8 mmol/L; ABG Glucose Whole Blood 138 mg/dL (75-99); ABG HCO3 25 mmol/L (21-25); ABG Hematocrit 35 % (34.0-46.0); ABG Ionized Calcium 4.8 mg/dL (4.5-5.3); ABG Lactic Acid Whole Blood 0.9 mmol/L (0.5-1.6); ABG Oxygen Saturation 98.9 % (94-97); ABG PCO2 42 mmHg (35-45); ABG PH 7.38 (7.35-7.45); ABG PO2 164 mmHg (83-108); ABG Potassium Whole Blood 4.3 mmol/L (3.4-4.5); ABG Sodium Whole Blood 141 mmol/L (135-146); ABG TCO2 26 mmol/L (19-24)
[2022-03-18 14:27] LABS: ABG Base Excess -1.6 mmol/L; ABG Glucose Whole Blood 141 mg/dL (75-99); ABG HCO3 23 mmol/L (21-25); ABG Hematocrit 31 % (34.0-46.0); ABG Ionized Calcium 4.7 mg/dL (4.5-5.3); ABG Lactic Acid Whole Blood 0.9 mmol/L (0.5-1.6); ABG Oxygen Saturation 98.9 % (94-97); ABG PCO2 36 mmHg (35-45); ABG PH 7.41 (7.35-7.45); ABG PO2 171 mmHg (83-108); ABG Potassium Whole Blood 3.9 mmol/L (3.4-4.5); ABG Sodium Whole Blood 141 mmol/L (135-146); ABG TCO2 24 mmol/L (19-24)
[2022-03-18 15:22] LABS: ABG Base Excess -2.1 mmol/L; ABG Glucose Whole Blood 139 mg/dL (75-99); ABG HCO3 23 mmol/L (21-25); ABG Hematocrit 30 % (34.0-46.0); ABG Ionized Calcium 5.1 mg/dL (4.5-5.3); ABG Lactic Acid Whole Blood 0.8 mmol/L (0.5-1.6); ABG Oxygen Saturation 98.2 % (94-97); ABG PCO2 38 mmHg (35-45); ABG PH 7.38 (7.35-7.45); ABG PO2 120 mmHg (83-108); ABG Potassium Whole Blood 3.9 mmol/L (3.4-4.5); ABG Sodium Whole Blood 141 mmol/L (135-146); ABG TCO2 24 mmol/L (19-24)
[2022-03-18] MEDS ORDERED: ALBUMIN HUMAN 5% 250 ML IVPB ONE (16:15)
[2022-03-18] MEDS ORDERED: DEXTROSE 50% SYRINGE 50 ML IVP PRN ×2 (16:23)
[2022-03-18] MEDS ORDERED: DEXMEDETOMIDINE/0.9% NACL(PMX) 400 MCG in EMPTY BAG 1 BAG IV SCH (16:23)
[2022-03-18] MEDS ORDERED: Potassium Replacement Protocol 1 EACH MISC MISCELLANE PRN (16:23)
[2022-03-18] MEDS ORDERED: ONDANSETRON 4 MG/2 ML VIAL IVP PRN (16:23)
[2022-03-18] MEDS ORDERED: IPRATROPIUM-ALBUTEROL 3 ML NEB INHALATION PRN (16:23)
[2022-03-18] MEDS ORDERED: Magnesium Replacement Protocol 1 EACH MISC MISCELLANE PRN (16:23)
[2022-03-18] MEDS ORDERED: METOCLOPRAMIDE 5 MG/ML 2 ML VIAL IVP PRN (16:23)
[2022-03-18] MEDS ORDERED: BENZOCAINE/MENTHOL LOZENG 1 EACH LOZENGE MUCOUS MEM PRN (16:23)
[2022-03-18] MEDS ORDERED: AMIODARONE 360 MG in DEXTROSE 5% IN WATER 200 ML IV PRN ×2 (16:23)
--- NOTE | 2022-03-18 16:25 | P.OP ---
Date of Procedure: 03/18/22 Preoperative Diagnosis: Coronary artery disease, unstable angina, paroxysmal atrial fibrillation Postoperative Diagnosis: Same Procedure(s) Performed: Off-pump coronary artery bypass grafting 3 with RUBIN to LAD, left radial artery graft to obtuse marginal, saphenous vein graft to posterior descending coronary artery, endovascular vein harvest, endovascular radial artery harvest, modified Jha maze with bilateral pulmonary vein isolation and exclusion of the left atrial appendage. Implants: 35mm AtriCure clip Anesthesia: NIKKYA Surgeon: Alberto Squires Senior Asic Design Engineer #1: Bryn Lim Senior Asic Design Engineer #2: Erickson Lowe Estimated Blood Loss (ml): 500 IV fluids (ml): 2,000 Urine output (ml): 500 Pathology: none sent Condition: stable Disposition: ICU Indications for Procedure: 76-year-old morbidly obese female with history of right coronary stenting many years ago. She presents with worsening unstable angina over the last month. She was seen in the director operations office yesterday. She was known to have new onset paroxysmal atrial fibrillation. She was scheduled for urgent This morning and underwent cardiac catheterization demonstrating very severe tight left main coronary artery disease as well as in-stent restenosis in the right coronary artery. Urgent surgical revascularization was requested. Operative Findings: Left ventricular function was normal. Intraoperative CHANTELLE demonstrated only trace mitral regurgitation and 1+ tricuspid regurgitation. On exploring the coronary arteries, was diffuse calcification of the LAD and the right coronary system. Conduits were acceptable. Description of Procedure: The patient was brought to the operating room, placed supine on the operating table, anesthetized and intubated. The anterior torso, bilateral lower extremities and left upper extremities were sterilely prepped and draped. Greater saphenous vein was harvested from the left thigh using endovascular vein harvest technique. Simultaneous left radial artery harvest was performed with endovascular harvest technique. Simultaneous midline sternotomy was performed, the left hemisternum was retracted upwards, the left internal mammary artery was harvested on a vascularized pedicle, left intact on its origin from the subclavian and divided distally. The left pleural space was drained with a 32- Vietnamese chest tube. Standard sternal retractor was placed and the pericardium was opened in the midline. The heart was exposed with pericardial sutures. Systemic heparinization was performed and ACTs were maintained greater than 250 during grafting. Blunt dissection was carried out around the right sided pulmonary veins and they were encircled. Ablation of the left atrium at the insertion of the right sided pulmonary veins was performed with AtriCure bipolar RF clamp. 3 parallel lines were performed. Next the left-sided pulmonary veins were exposed. The ligament of Francisco was taken down with electrocautery. The veins were encircled and ablation of the left atrium at the insertion of the left pulmonary veins was carried out similar to the right. Completion of 3 lines the heart was lowered into anatomic position. Next we stabilized the proximal LAD. The LAD was diffusely calcified. It was soft in the proximal area. It was opened here and had notable back wall calcific disease. Blood flow was controlled with a 1.5 mm flow through. It was a 1.75-2 mm vessel. End-to-side anastomosis between the RUBIN and the proximal LAD was performed with running 8-0 Prolene suture. On completion of the anastomosis, the flow through was removed effectively probing the proximal and distal portion of the anastomosis. Suture was tied with good result and hemostasis and inflow was open. The KEISHA pedicle was tacked surrounding epicardium with 6-0 silk suture. Next the inferior wall was exposed. Posterior descending coronary artery was opened fairly proximally. It also was a fairly calcific vessel was opened in a soft spot. Was a 1.75 mm vessel. Blood flow was controlled 1.5 mm flow through. Saphenous vein was anastomosed in an inside fashion with running 7-0 Prolene suture. On completion anastomosis, the flow through was removed effectively probing the proximal distal portion anastomosis. Suture was tied with good result and hemostasis. Heart was lowered into anatomic position and the vein cut to appropriately to reach the ascending aorta. Backbleeding was controlled with a bulldog clamp. Next the lateral wall of the heart was exposed. Major marginal branch was identified and stabilized. It was opened fairly proximally. Was a 2 mm vessel. It had relatively less diseased present in the LAD or PDA. Blood flow was controlled 1.5 mm flow through. Anastomosis of the end of the radial to the side of the obtuse marginal was performed with running 7-0 Prolene suture. On completion anastomosis flow through was removed 50 probe the proximal distal portion anastomosis. Suture was tied with result and hemostasis. Good backbleeding was noted into the radial artery graft. The heart was lowered into anatomic position. Radial artery was brought beneath the RUBIN to the ascending aorta and cut to appropriate length. Proximal anastomoses were performed with the heartstring devices. We first applied the heartstring device low on the ascending aorta in the midline. Saphenous vein graft was anastomosed to this puncture site with 5-0 Prolene suture. On completion anastomosis the heartstring device was removed and the suture was tied with good result and hemostasis. Vein graft was de-aired with needle holes and inflow was open. Next the second heartstring device was deployed in the mid ascending aorta to the left of midline. Proximal radial artery anastomosis was performed with running 5-0 Prolene suture. On completion anastomosis heartstring device was removed the suture was tied with good result and hemostasis. Graft was de-a ired by backbleeding and then inflow open. Distal anastomoses showed good hemostasis as did the proximals. Heparin was now reversed with protamine. Good hemostasis was obtained throughout. Atrial and ventricular pacing wires were placed in the usual fashion clear Chest was irrigated with antibiotic solution. Mediastinum was drained with a 36-Vietnamese chest tube. Sternum was closed with 8 sternal wires. Fascia was closed with 0 Ethibond. Subcutaneous and subcuticular layers in the leg arm and chest were closed with layers of Vicryl suture. Dry sterile dressings were applied and the patient was transferred to the ICU in stable hemodynamic condition on no inotropic support. Patient did not require any blood transfusions.
[2022-03-18] MEDS: IPRATROPIUM-ALBUTEROL 3 ML NEB INHALATION SCH ×2 (16:39→19:44)
[2022-03-18 16:40] LABS: Glucose,Whole Blood 158 mg/dL (70-110)
[2022-03-18] MEDS ORDERED: DOPamine DRIP 800 MG in DEXTROSE/WATER 1 250ML.BAG IV SCH (16:45)
[2022-03-18] MEDS: LACTATED RINGERS 1,000 ML IV SCH (16:49)
[2022-03-18 16:56] LABS: ABG HCO3 22 mmol/L (21-25); ABG PCO2 40 mmHg (35-45); ABG PH 7.35 (7.35-7.45); ABG PO2 311 mmHg (83-108); ABG TCO2 23 mmol/L (19-24)
[2022-03-18 16:59] LABS: Allen Test Performed? no
[2022-03-18 17:02] LABS: INR 1.2 (<1.2); Ionized Calcium 5.1 mg/dL (4.5-5.3); Partial Thromboplastin Time 26.5 sec (22.0-30.0); Prothrombin Time 12.3 sec (9.0-12.0)
[2022-03-18 17:09] LABS: Basophils % (A) 0 %; Eosinophils # (A) 0.1 k/uL (0-0.7); Eosinophils % (A) 0 %; HCT 29.8 % (34.0-46.0); Lymphocytes # (A) 1.8 k/uL (1.0-4.8); Lymphocytes % (A) 13 %; MCH 31.4 pg (25.0-35.0); MCHC 33.4 g/dL (31.0-37.0); Mean Platelet Volume 14.3; Monocytes # (A) 0.4 k/uL (0-1.0); Monocytes % (A) 3 %; Neutrophils # (A) 11.6 k/uL (1.3-7.7); Neutrophils % (A) 83 %; RBC 3.17 m/uL (3.80-5.40); RDW 12.4 % (11.5-15.5); WBC 13.9 k/uL (3.8-10.6)
[2022-03-18 17:11] LABS: Platelet Count 76 k/uL (150-450)
[2022-03-18 17:11] LABS: Glucose,Whole Blood 154 mg/dL (70-110)
[2022-03-18] MEDS: CLEVIDIPINE BUTYRATE 25 MG in EMPTY BAG 1 BAG IV SCH ×2 (17:11→19:50)
[2022-03-18 17:12] LABS: ALT 14 U/L (4-34); AST 21 U/L (14-36); African American GFR (CKD) >90 (>60 ml/min/1.73 sqM); Albumin 3.7 g/dL (3.5-5.0); Alkaline Phosphatase 47 U/L (38-126); Anion Gap 7 mmol/L; Blood Urea Nitrogen 13 mg/dL (7-17); Calcium 8.5 mg/dL (8.4-10.2); Carbon Dioxide 20 mmol/L (22-30); Chloride 112 mmol/L (98-107); Glucose 142 mg/dL (74-99); Magnesium 1.6 mg/dL (1.6-2.3); Non-African American GFR(CKD) 89 (>60 ml/min/1.73 sqM); Potassium 3.8 mmol/L (3.5-5.1); Sodium 139 mmol/L (137-145); Total Bilirubin 0.9 mg/dL (0.2-1.3); Total Protein 5.4 g/dL (6.3-8.2)
[2022-03-18] MEDS: INSULIN REGULAR 100 UNIT in SODIUM CHLORIDE 0.9% 100 ML IV SCH (17:16)
--- NOTE | 2022-03-18 17:19 | XR ---
EXAMINATION TYPE: XR chest 1V portable DATE OF EXAM: 03/18/2022 COMPARISON: Today HISTORY: Cardiac surgery TECHNIQUE: Single view FINDINGS: There is right jugular catheter with tip in the main pulmonary artery. There are sternal wi res. The endotracheal tube is 4 cm from the jorje. There is left-sided chest tube. No pneumothorax. Trachea is midline. Heart size is normal. No heart failure. There is apparent drain over the heart. IMPRESSION: There is mild subsegmental atelectasis at the lung bases. No heart failure.
[2022-03-18] MEDS: HEPARIN SODIUM,PORCINE/PF 5,000 UNIT/0.5 ML SYRINGE SQ SCH ×2 (17:33→23:17)
[2022-03-18 17:59] LABS: Glucose,Whole Blood 178 mg/dL (70-110)
--- NOTE | 2022-03-18 18:04 | P.CNPUL ---
History of Present Illness Consult date: 03/18/22 Requesting physician: Alberto Squires Reason for consult: other (Mechanical ventilator/critical care management) Chief complaint: Unstable angina History of present illness: This is a 76-year-old female patient who has a history of known coronary artery disease with previous myocardial infarction and PCI to the RCA back in 2013, hyperlipidemia, hypertension, slow atrial fibrillation, pulmonary embolism, morbid obesity, lifelong nonsmoker. She was brought in today electively for cardiac catheterization after having one month complaints of chest discomfort requiring multiple tablets of sublingual nitroglycerin with symptomatic relief. Cardiac catheterization revealed 95% left main disease with thrombus. She was recommended urgent coronary artery revascularization which was performed today Dr. Squires. She had undergone off-pump coronary artery bypass grafting 3 with a RUBIN to the LAD, left radial artery to the obtuse marginal, SVG to the posterior descending artery. She is seen in the immediate postoperative setting in the ICU. Intubated on the mechanical ventilator with settings of assist control mode at a rate of 14, tidal volume 450, FiO2 50% and a PEEP of 10. Arterial bl ood gases revealed a PaO2 of 311, pCO2 of 40 and a pH of 7.34 on 100% FiO2. She is currently sedated on propofol at 25 mcg/kg/m. Insulin drip at 2 units per hour. Lactated Ringer's at 50 MLS per hour. She was bradycardic initially and placed on dopamine at 5 mcg/kg/m. She is also requiring Cleviprex at 5 mg per hour. Initial cardiac output was 3.2 with an index of 1.4 which have since improved to cardiac output of 7.4 with an index of 3.3. CVP of 16. PA pressure 44/26. Heart rate now in the 70s and 80s. Sinus rhythm. She did receive 1500 ML's of albumin. Chest x-ray reveals mild subsegmental atelectasis of the lung bases. No heart failure. Mediastinal and left-sided chest tubes in place. Right IJ [place]-My catheter in place. Sternal wires secured. No evidence of pneumothorax. There is a right brachial arterial line in place. Lower extremities to Bernabe wraps. Warming blanket in place. White count 13.9. Hemoglobin 10.0. Platelets 76,000. INR 1.2. Sodium 139. Potassium 3.8. Bicarb 20. BUN 13. Creatinine 0.61. Glucose 158. she will remain on DuoNeb inhalations every 4 hours. Receiving cefazolin. Review of Systems ROS unobtainable: due to endotracheal tube Past Medical History Past Medical History: Coronary Artery Disease (CAD), Chest Pain / Angina, Hyperlipidemia, Hypertension, Myocardial Infarction ([place]), Pulmonary Embolus ([place]), Sleep Apnea/CPAP/BIPAP Last Myocardial Infarction Date:: 02/18/14 History of Any Multi-Drug Resistant Organisms: None Reported Past Surgical History: Heart Catheterization With Stent, Hysterectomy Past Anesthesia/Blood Transfusion Reactions: No Reported Reaction Date of Last Stent Placement:: 02/18/14 Past Psychological History: No Psychological Hx Reported Smoking Status: Never smoker Past Alcohol Use History: None Reported Past Drug Use History: None Reported - Past Family History Father Family Medical History: Myocardial Infarction ([place]) Additional Family Medical History / Comment(s): Premature coronary artery disease, multiple myocardial infarctions, at 66 Mother Family Medical History: Cancer, Vascular Disorder Medications and Allergies Home Medications Medication Instructions Recorded Confirmed Type Meclizine [Antivert] 12.5 mg PO TID PRN 02/18/14 03/18/22 History Multivitamins, Thera [Multivitamin 1 each PO DAILY@1200 02/18/14 03/18/22 History (formulary)] [place]-3 Fatty Acids/Fish Oil [Fish 1 each PO DAILY 02/18/14 03/18/22 History Oil 1,000 mg Softgel] Omeprazole [PriLOSEC] 20 mg PO AC-BRKFST 02/18/14 03/18/22 History hydroCHLOROthiazide [Hydrodiuril] 25 mg PO DAILY 02/18/14 03/18/22 History Enalapril [Vasotec] 10 mg PO BID #60 tab 02/20/14 03/18/22 Rx Nitroglycerin Sl Tabs [Nitrostat] 0.4 mg SUBLINGUAL Q5M PRN #25 tab 02/20/14 03/18/22 Rx ALPRAZolam [Xanax] 0.5 mg PO HS PRN 03/18/22 03/18/22 History Aspirin [Adult Low Dose Aspirin EC] 81 mg PO DAILY 03/18/22 03/18/22 History Atorvastatin [Lipitor] 40 mg PO HS 03/18/22 03/18/22 History Calcium Carbonate [Calcium] 500 mg PO DAILY 03/18/22 03/18/22 History Enalapril Maleate 10 mg PO BID 03/18/22 03/18/22 History Isosorbide Mononitrate ER [Imdur] 30 mg PO DAILY 03/18/22 03/18/22 History Melatonin [Melatonin Chew] 2.5 mg PO HS 03/18/22 03/18/22 History Metoprolol Succinate [Metoprolol 12.5 mg PO DAILY 03/18/22 03/18/22 History Succinate ER] traMADol HCL 50 mg PO Q6H 03/18/22 03/18/22 History Allergies Allergy/AdvReac Type Severity Reaction Status Date / Time No Known Allergies Allergy Verified 02/18/14 11:09 Physical Exam Vitals: Vital Signs Temp Pulse Pulse Resp BP BP BP 03/18/22 17:35 03/18/22 17:15 83 15 134/107 03/18/22 17:00 45 L 16 134/107 03/18/22 16:59 03/18/22 16:45 49 L 16 134/107 03/18/22 16:30 93.6 F L 39 L 16 03/18/22 16:28 03/18/22 16:05 03/18/22 10:30 45 L 11 L 114/55 03/18/22 10:00 44 L 14 115/62 03/18/22 09:30 48 L 15 118/56 03/18/22 09:00 43 L 18 135/68 03/18/22 08:59 03/18/22 08:35 54 L 16 132/63 03/18/22 08:34 97.7 F 135/68 03/18/22 08:26 50 L 16 172/69 03/18/22 08:11 56 L 16 143/63 03/18/22 07:56 54 L 16 129/57 03/18/22 06:26 98.4 F 56 L 18 164/88 138/60 Pulse Ox FiO2 03/18/22 17:35 50 03/18/22 17:15 98 03/18/22 17:00 100 03/18/22 16:59 50 03/18/22 16:45 100 03/18/22 16:30 03/18/22 16:28 100 03/18/22 16:05 100 03/18/22 10:30 96 03/18/22 10:00 96 03/18/22 09:30 96 03/18/22 09:00 95 03/18/22 08:59 86 L 03/18/22 08:35 98 03/18/22 08:34 96 03/18/22 08:26 98 03/18/22 08:11 98 03/18/22 07:56 100 03/18/22 06:26 97 Intake and Output 03/18/22 03/18/22 03/18/22 06:59 14:59 22:59 Intake Total 200 503 173.556 Output Total 250 2095 Balance 200 253 -1921.444 Intake: IV 200 303 160 CO/CI 60 Lactated Ringers 1,000 ml 100 @ 50 mls/hr IV .Q20H [facility] Rx#:[id number] Sodium Chloride 0.9% 1, 150 000 ml In Empty Bag 1 bag @ 1 ML/KG/HR 116.5 mls/ hr IV .Q8H36M [facility] Rx#: [id number] Intake, IV Titration 200 13.556 Amount Clevidipine Butyrate 25 2.834 mg In Empty Bag 1 bag @ 1 MG/HR 2 mls/hr IV .Q24H [facility] Rx#:[id number] Nitroglycerin-D5w Pmx 50 1.85 mg In Dextrose/Water 1 250ml.bag @ 5 MCG/MIN 1.5 mls/hr IV .Q24H [facility] Rx#: [id number] Sodium Chloride 0.9% 1, 200 000 ml In Empty Bag 1 bag @ 1 ML/KG/HR 116.5 mls/ hr IV .Q8H36M [facility] Rx#: [id number] propofoL 1,000 mg In 8.872 Empty Bag 1 bag @ Titrate IV .Q0M [facility] Rx#: [id number] Output: Chest Tube Drainage 70 Mediastinal/Left Pleural 70 Urine 250 825 Estimated Blood Loss 1200 Other: Voiding Method Indwelling Catheter Weight 116.5 kg 118.3 kg ABP, PAP, CO, CI - Last 8 Hours Arterial Blood Pressure 178/72 Arterial Blood Pressure 128/61 Arterial Blood Pressure 149/70 Pulmonary Artery Pressure 48/30 Pulmonary Artery Pressure 43/24 Pulmonary Artery Pressure 42/25 Pulmonary Artery Pressure 40/18 Cardiac Output 3.9 Cardiac Output 4.1 Cardiac Output 3.2 Cardiac Index 1.7 Cardiac Index 1.8 Cardiac Index 1.4 GENERAL EXAM: Intubated, sedated, 76-year-old female, on the mechanical ventilator, comfortable in no apparent distress. HEAD: Normocephalic. EYES: Sluggish reaction of pupils, equal size. NOSE: Clear with pink turbinates. THROAT: Oral endotracheal and gastric tube secured in place. No erythema or exudates. NECK: Right IJ [place]-My catheter in place. No masses, no JVD. CHEST: Sternal dressing dry and intact. Heart hugger in place. Mediastinal and left chest tubes and placed to Pleur-evac LUNGS: Equal air entry with no crackles, wheeze, rhonchi or dullness. CVS: S1 and S2 normal with no audible murmur, regular rhythm. ABDOMEN: No hepatosplenomegaly, normal bowel sounds, no guarding or rigidity. SPINE: No scoliosis or deformity SKIN: No rashes CENTRAL NERVOUS SYSTEM: Sedated, tone is normal in all 4 extremities. EXTREMITIES: Right brachial arterial line in place. Bernabe wraps to the bilateral lower extremities. There is no peripheral edema. No clubbing, no cyanosis. Peripheral pulses are intact. Results - Laboratory Findings CBC and BMP: 03/19/22 03:00 03/19/22 03:00 ABG ABG pH 7.35 (7.35-7.45) 03/18/22 16:55 ABG pCO2 40 mmHg (35-45) 03/18/22 16:55 ABG pO2 311 mmHg (83-108) H 03/18/22 16:55 ABG O2 Saturation 100.0 % (94-97) H 03/18/22 16:55 PT/INR, D-dimer PT 12.3 sec (9.0-12.0) H 03/18/22 16:40 INR 1.2 (<1.2) H 03/18/22 16:40 Abnormal lab findings: Abnormal Labs 03/18/22 03/18/22 03/18/22 07:55 07:55 07:55 WBC RBC Hgb Hct Plt Count 126 L Neutrophils # PT INR ABG pO2 ABG Total CO2 ABG O2 Saturation ABG Hematocrit ABG Glucose Hemoglobin Chloride Carbon Dioxide Glucose 131 H POC Glucose (mg/dL) Total Protein Arterial Blood Glucose Ur Leukocyte Esterase Urine Bacteria Crossmatch See Detail 03/18/22 03/18/22 03/18/22 09:01 09:03 12:17 WBC RBC Hgb Hct Plt Count Neutrophils # PT INR ABG pO2 255 H ABG Total CO2 25 H ABG O2 Saturation 99.4 H ABG Hematocrit ABG Glucose 119 H Hemoglobin 11.3 L Chloride Carbon Dioxide Glucose POC Glucose (mg/dL) 118 H Total Protein Arterial Blood Glucose 119 H Ur Leukocyte Esterase Moderate H Urine Bacteria Rare H Crossmatch 03/18/22 03/18/22 03/18/22 13:31 14:27 15:21 WBC RBC Hgb Hct Plt Count Neutrophils # PT INR ABG pO2 164 H 171 H 120 H ABG Total CO2 26 H ABG O2 Saturation 98.9 H 98.9 H 98.2 H ABG Hematocrit 31 L 30 L ABG Glucose 138 H 141 H 139 H Hemoglobin 10.2 L 9.7 L Chloride Carbon Dioxide Glucose POC Glucose (mg/dL) Total Protein Arterial Blood Glucose 138 H 141 H 139 H Ur Leukocyte Esterase Urine Bacteria Crossmatch 03/18/22 03/18/22 03/18/22 16:39 16:40 16:40 WBC 13.9 H RBC 3.17 L Hgb 10.0 L D Hct 29.8 L Plt Count 76 L Neutrophils # 11.6 H PT 12.3 H INR 1.2 H ABG pO2 ABG Total CO2 ABG O2 Saturation ABG Hematocrit ABG Glucose Hemoglobin Chloride Carbon Dioxide Glucose POC Glucose (mg/dL) 158 H Total Protein Arterial Blood Glucose Ur Leukocyte Esterase Urine Bacteria Crossmatch 03/18/22 03/18/22 03/18/22 16:40 16:55 17:10 WBC RBC Hgb Hct Plt Count Neutrophils # PT INR ABG pO2 311 H ABG Total CO2 ABG O2 Saturation 100.0 H ABG Hematocrit ABG Glucose Hemoglobin Chloride 112 H Carbon Dioxide 20 L Glucose 142 H POC Glucose (mg/dL) 154 H Total Protein 5.4 L Arterial Blood Glucose Ur Leukocyte Esterase Urine Bacteria Crossmatch - Diagnostic Findings Chest x-ray: image reviewed Assessment and Plan Assessment: Unstable angina in a patient found to have significant left main disease and had undergone coronary artery bypass grafting 3 without RUBIN to the LAD, left radial artery to the OM, saphenous vein graft to the PDA. Postoperative day #0. Acute hypoxemic respiratory failure, expected outcome of surgery, currently on mechanical ventilator Recent onset of atrial fibrillation with a slow ventricular response History of coronary artery disease with previous PCI to the RCA in 2013 Morbid obesity Hypertension Hyperlipidemia Gastroesophageal reflux disease Anxiety Remote history of pulmonary embolism Lifelong nonsmoker Plan: The patient was seen and evaluated Chest x-ray, ABGs, labs and medications reviewed FiO2 decreased to 50% Continue bronchodilators Plan for early extubation protocol as tolerated Continue the current treatment plan Medication adjustments where appropriate We will continue to follow and make further recommendations based on her clinical status I have personally seen and examined the patient, performed the documentation and the assessment and plan as written. Number of minutes spent on the visit: 20. Is a joint evaluation that was done along with respect practitioner. This evaluation was done in the intensive care unit. Above-mentioned plan. The p atient was extubated within the next few hours. She is well-developed is stable. Hemodynamic parameters. We'll continue to follow. This evaluation was done in more than 30 minutes.
[2022-03-18] MEDS: POTASSIUM CHLORIDE 10 MEQ in WATER FOR INJECTION 1 100ML.BAG IVPB SCH ×2 (18:07→19:50)
[2022-03-18] MEDS: ACETAMINOPHEN IV (For NPO) 1,000 MG in EMPTY BAG 1 BAG IVPB SCH (18:07)
[2022-03-18 18:50] LABS: Glucose,Whole Blood 177 mg/dL (70-110)
[2022-03-18 19:18] LABS: Chol/HDL Ratio 2.72 Ratio; LDL Cholesterol,Calculated 84.6 mg/dL (0.0-131.0); VLDL Calculation 13.42 mg/dL (5.00-40.00)
[2022-03-18 19:23] LABS: Basophils % (A) 0 %; Eosinophils % (A) 0 %; HCT 32.5 % (34.0-46.0); HGB 10.7 gm/dL (11.4-16.0); Lymphocytes # (A) 1.5 k/uL (1.0-4.8); Lymphocytes % (A) 8 %; MCH 31.3 pg (25.0-35.0); MCHC 33.1 g/dL (31.0-37.0); MCV 94.6 fL (80.0-100.0); Mean Platelet Volume 13.6; Monocytes # (A) 0.5 k/uL (0-1.0); Monocytes % (A) 3 %; Neutrophils # (A) 15.7 k/uL (1.3-7.7); Neutrophils % (A) 88 %; Platelet Count 106 k/uL (150-450); RBC 3.43 m/uL (3.80-5.40); RDW 12.6 % (11.5-15.5); WBC 17.8 k/uL (3.8-10.6)
[2022-03-18 20:08] LABS: Glucose,Whole Blood 169 mg/dL (70-110)
[2022-03-18] MEDS: ATORVASTATIN 40 MG TAB PO SCH (20:36)
[2022-03-18 20:50] LABS: Glucose,Whole Blood 162 mg/dL (70-110)
[2022-03-18] MEDS ORDERED: LOSARTAN 25 MG TAB PO SCH (21:00)
[2022-03-18] MEDS: MAGNESIUM SULFATE-D5W PMX 1 GM in DEXTROSE/WATER 1 100ML.BAG IVPB SCH ×2 (21:05→22:31)
[2022-03-18 21:08] LABS: ABG Base Excess -4.4 mmol/L; ABG HCO3 21 mmol/L (21-25); ABG Oxygen Saturation 97.2 % (94-97); ABG PCO2 36 mmHg (35-45); ABG PH 7.37 (7.35-7.45); ABG PO2 86 mmHg (83-108); ABG TCO2 22 mmol/L (19-24); Allen Test Performed? Yes
[2022-03-18] MEDS: DEXTROSE 5% IN WATER 100 ML with AMIODARONE 150 MG IV PRN (21:44)
[2022-03-18] MEDS: AMIODARONE 450 MG in DEXTROSE 5% IN WATER 250 ML IV PRN ×2 (21:50)
[2022-03-18 21:51] LABS: Basophils % (A) 0 %; Eosinophils % (A) 0 %; HCT 30.8 % (34.0-46.0); HGB 10.5 gm/dL (11.4-16.0); Lymphocytes # (A) 0.9 k/uL (1.0-4.8); Lymphocytes % (A) 6 %; MCH 32.2 pg (25.0-35.0); MCHC 34.2 g/dL (31.0-37.0); MCV 94.3 fL (80.0-100.0); Mean Platelet Volume 13.3; Monocytes # (A) 0.7 k/uL (0-1.0); Monocytes % (A) 5 %; Neutrophils # (A) 13.7 k/uL (1.3-7.7); Neutrophils % (A) 89 %; RBC 3.27 m/uL (3.80-5.40); RDW 12.1 % (11.5-15.5); WBC 15.4 k/uL (3.8-10.6)
[2022-03-18 22:01] LABS: Platelet Count 85 k/uL (150-450)
[2022-03-18 22:15] LABS: Glucose,Whole Blood 160 mg/dL (70-110)
[2022-03-18] MEDS: MUPIROCIN 2% OINT 22 GM TUBE NASAL SCH (22:32)
[2022-03-18 23:03] LABS: Glucose,Whole Blood 144 mg/dL (70-110)
[2022-03-19] MEDS: ACETAMINOPHEN IV (For NPO) 1,000 MG in EMPTY BAG 1 BAG IVPB SCH (00:02)
[2022-03-19 00:11] LABS: Glucose,Whole Blood 139 mg/dL (70-110)
[2022-03-19 00:59] LABS: Glucose,Whole Blood 120 mg/dL (70-110)
[2022-03-19 02:10] LABS: Glucose,Whole Blood 103 mg/dL (70-110)
[2022-03-19 03:04] LABS: Glucose,Whole Blood 125 mg/dL (70-110)
[2022-03-19 03:28] LABS: Basophils % (A) 0 %; Eosinophils % (A) 0 %; HCT 30.9 % (34.0-46.0); HGB 10.4 gm/dL (11.4-16.0); Lymphocytes # (A) 0.9 k/uL (1.0-4.8); Lymphocytes % (A) 6 %; MCH 31.4 pg (25.0-35.0); MCHC 33.8 g/dL (31.0-37.0); MCV 93.1 fL (80.0-100.0); Mean Platelet Volume 14.4; Monocytes # (A) 0.7 k/uL (0-1.0); Monocytes % (A) 5 %; Neutrophils # (A) 12.3 k/uL (1.3-7.7); Neutrophils % (A) 88 %; RBC 3.32 m/uL (3.80-5.40); RDW 12.5 % (11.5-15.5); WBC 13.9 k/uL (3.8-10.6)
[2022-03-19 03:31] LABS: Platelet Count 90 k/uL (150-450)
[2022-03-19] MEDS ORDERED: HYDROcodone/APAP 5-325MG 1 EACH TAB PO PRN (03:35)
[2022-03-19 03:37] LABS: Ionized Calcium 5.1 mg/dL (4.5-5.3)
[2022-03-19 04:03] LABS: Glucose,Whole Blood 126 mg/dL (70-110)
[2022-03-19 04:48] LABS: ALT 19 U/L (4-34); AST 36 U/L (14-36); African American GFR (CKD) >90 (>60 ml/min/1.73 sqM); Albumin 3.7 g/dL (3.5-5.0); Alkaline Phosphatase 53 U/L (38-126); Anion Gap 7 mmol/L; Blood Urea Nitrogen 15 mg/dL (7-17); Calcium 8.6 mg/dL (8.4-10.2); Carbon Dioxide 21 mmol/L (22-30); Chloride 107 mmol/L (98-107); Glucose 120 mg/dL (74-99); Non-African American GFR(CKD) 86 (>60 ml/min/1.73 sqM); Potassium 4.1 mmol/L (3.5-5.1); Sodium 135 mmol/L (137-145); Total Protein 5.6 g/dL (6.3-8.2)
[2022-03-19 05:11] LABS: Glucose,Whole Blood 114 mg/dL (70-110)
[2022-03-19] MEDS: HYDROcodone/APAP 5-325MG 1 EACH TAB PO PRN ×3 (05:17→18:10)
[2022-03-19 06:09] LABS: Glucose,Whole Blood 130 mg/dL (70-110)
[2022-03-19] MEDS: ALBUMIN HUMAN 5% 250 ML in EMPTY BAG 1 BAG IVPB PRN ×2 (06:15→08:38)
[2022-03-19 07:02] LABS: Glucose,Whole Blood 124 mg/dL (70-110)
--- NOTE | 2022-03-19 07:47 | XR ---
EXAMINATION TYPE: XR chest 1V portable DATE OF EXAM: 03/19/2022 COMPARISON: 03/18/2022 HISTORY: Postop cardiac surgery. TECHNIQUE: Single frontal view of the chest is obtained. FINDINGS: There is a [place]-My catheter in the pulmonary artery. There is left-sided chest tube. The ET tube has been removed in the interval. There is mild pulmonary vascular congestion. Large pleural effusion. There are vascular clips overlying the heart and mediastinal IMPRESSION: 1. ET tube has been removed in the interval. 2. Left-sided chest tube with no pneumothorax. 3. No change in the [place]-My catheter. 4. Persistent mild pulmonary vascular congestion. .
[2022-03-19 08:15] LABS: Glucose,Whole Blood 110 mg/dL (70-110)
[2022-03-19] MEDS: HEPARIN SODIUM,PORCINE/PF 5,000 UNIT/0.5 ML SYRINGE SQ SCH ×3 (08:32→23:47)
[2022-03-19] MEDS: PANTOPRAZOLE 40 MG/10 ML VIAL IVP SCH (08:32)
[2022-03-19] MEDS: ASPIRIN 325 MG TAB PO SCH (08:32)
[2022-03-19] MEDS: MUPIROCIN 2% OINT 22 GM TUBE NASAL SCH ×2 (08:33→20:19)
[2022-03-19] MEDS: CLOPIDOGREL 75 MG TAB PO SCH (08:33)
[2022-03-19] MEDS: METOPROLOL TARTRATE 12.5 MG TAB PO SCH ×2 (08:48→09:53)
[2022-03-19] MEDS ORDERED: bisacodyL 10 MG SUPP RECTAL PRN (09:00)
[2022-03-19] MEDS ORDERED: MAGNESIUM HYDROXIDE 2,400 MG/10 ML CUP PO PRN (09:00)
[2022-03-19] MEDS: IPRATROPIUM-ALBUTEROL 3 ML NEB INHALATION SCH ×4 (09:03→20:45)
[2022-03-19 09:50] LABS: Glucose,Whole Blood 139 mg/dL (70-110)
--- NOTE | 2022-03-19 09:51 | P.CRDCN ---
History of Present Illness History of present illness: HISTORY OF PRESENTING ILLNESS Patient is pleasant 76-year-old female with history of CAD status post remote PCI, hypertension, hyperlipidemia, newly diagnosed atrial fibrillation. She had presented for increasing episodes of dyspnea with fairly minimal exertion and therefore underwent outpatient heart catheterization yesterday. Catheterization showed critical left main stenosis and underwent urgent bypass with RUBIN to LAD, left radial to OM, SVG to PDA as well as Jha-Maze pulmonary vein isolation and left atrial appendage exclusion. 03/19 Patient seen and examined. She denies any chest pain or pressure. She admits to some discomfort around the sternotomy. Dopamine was decreased from 5-3. She did have occasional mild bradycardia however heart rates have remained in the 60s to 90s. She has intermittently been going into atrial fibrillation and has been on amiodarone drip currently at 0.5. Cardiac index varying from 1.7 up to 2.0 today. Blood work this morning shows white blood cell count 13.9, hemoglobin 10.0, creatinine 0.6, albumin 3.7. PHYSICAL EXAMINATION Vital signs reviewed. CONSTITUTIONAL: No apparent distress. HEENT: Head is normocephalic. Pupils are equal, round. Sclerae anicteric. Mucous membranes of the mouth are moist. No JVD. No carotid bruit. CHEST EXAMINATION: Lungs are clear to auscultation. No chest wall tenderness is noted on palpation or with deep breathing. HEART EXAMINATION: Irregular rate and rhythm. S1, S2 heard. No murmurs, gallops or rub. ABDOMEN: Soft, nontender. Positive bowel sounds. EXTREMITIES: 2+ peripheral pulses, no lower extremity edema and no calf tenderness. NEUROLOGIC EXAMINATION: Patient is awake, alert and oriented x3. ASSESSMENT 1. CAD with prior history of PCI, critical left main stenosis status post 3 v essel CABG 03/18 2. Unstable angina 3. Hypertension 4. Newly diagnosed atrial fibrillation, currently in and out of A. fib and currently in A. fib with controlled ventricular rates 5. Mild postoperative bradycardia, may be related to vagal response 6. Mild anemia PLAN Preoperative echo been performed which showed EF 40-45% with mild global hypokinesis. Suspect mainly related to left main disease and hopefully will improve with revascularization. She appears to be recovering from her bypass. Continue supportive care. Continue with amiodarone however heart rates appear fairly well controlled. Anticoagulation when cleared by cardiothoracic surgery. Past Medical History Past Medical History: Coronary Artery Disease (CAD), Chest Pain / Angina, Hyperlipidemia, Hypertension, Myocardial Infarction ([place]), Pulmonary Embolus ([place]), Sleep Apnea/CPAP/BIPAP Last Myocardial Infarction Date:: 02/18/14 History of Any Multi-Drug Resistant Organisms: None Reported Past Surgical History: Heart Catheterization With Stent, Hysterectomy Past Anesthesia/Blood Transfusion Reactions: No Reported Reaction Date of Last Stent Placement:: 02/18/14 Past Psychological History: No Psychological Hx Reported Smoking Status: Never smoker Past Alcohol Use History: None Reported Past Drug Use History: None Reported - Past Family History Father Family Medical History: Myocardial Infarction ([place]) Additional Family Medical History / Comment(s): Premature coronary artery disease, multiple myocardial infarctions, at 66 Mother Family Medical History: Cancer, Vascular Disorder Medications and Allergies Home Medications Medication Instructions Recorded Confirmed Type Meclizine [Antivert] 12.5 mg PO TID PRN 02/18/14 03/18/22 History Multivitamins, Thera [Multivitamin 1 each PO DAILY@1200 02/18/14 03/18/22 History (formulary)] [place]-3 Fatty Acids/Fish Oil [Fish 1 each PO DAILY 02/18/14 03/18/22 History Oil 1,000 mg Softgel] Omeprazole [PriLOSEC] 20 mg PO [id number] 02/18/14 03/18/22 History hydroCHLOROthiazide [Hydrodiuril] 25 mg PO DAILY 02/18/14 03/18/22 History Enalapril [Vasotec] 10 mg PO BID #60 tab 02/20/14 03/18/22 Rx Nitroglycerin Sl Tabs [Nitrostat] 0.4 mg SUBLINGUAL Q5M PRN #25 tab 02/20/14 03/18/22 Rx ALPRAZolam [Xanax] 0.5 mg PO HS PRN 03/18/22 03/18/22 History Aspirin [Adult Low Dose Aspirin EC] 81 mg PO DAILY 03/18/22 03/18/22 History Atorvastatin [Lipitor] 40 mg PO HS 03/18/22 03/18/22 History Calcium Carbonate [Calcium] 500 mg PO DAILY 03/18/22 03/18/22 History Enalapril Maleate 10 mg PO BID 03/18/22 03/18/22 History Isosorbide Mononitrate ER [Imdur] 30 mg PO DAILY 03/18/22 03/18/22 History Melatonin [Melatonin Chew] 2.5 mg PO HS 03/18/22 03/18/22 History Metoprolol Succinate [Metoprolol 12.5 mg PO DAILY 03/18/22 03/18/22 History Succinate ER] traMADol HCL 50 mg PO Q6H 03/18/22 03/18/22 History Allergies Allergy/AdvReac Type Severity Reaction Status Date / Time No Known Allergies Allergy Verified 02/18/14 11:09 Physical Exam Vitals: Vital Signs Temp Pulse Resp BP Pulse Ox FiO2 03/19/22 09:04 64 18 96 03/19/22 08:00 99.7 F H 59 L 17 97 03/19/22 07:00 70 17 97 03/19/22 06:00 82 22 97 03/19/22 05:00 77 27 H 95 03/19/22 04:00 99.3 F 89 21 95 03/19/22 03:00 82 19 96 03/19/22 02:00 71 16 97 03/19/22 01:00 72 22 136/69 96 03/19/22 00:00 99.0 F 75 27 H 97 03/18/22 23:07 72 24 98 03/18/22 23:00 62 20 137/58 100 03/18/22 22:00 67 20 109/66 97 03/18/22 21:18 95 03/18/22 21:00 71 17 105/52 98 03/18/22 20:27 50 03/18/22 20:00 97.3 F L 73 21 96 50 03/18/22 19:45 86 35 H 97 03/18/22 19:30 74 27 H 95 03/18/22 19:15 90 L 03/18/22 19:00 74 19 94 L 03/18/22 18:45 72 18 94 L 03/18/22 18:30 70 18 96 03/18/22 18:15 75 21 96 03/18/22 18:00 71 16 92 L 03/18/22 17:45 71 10 L 95 03/18/22 17:35 50 03/18/22 17:30 76 14 97 03/18/22 17:15 83 15 134/107 98 03/18/22 17:00 45 L 16 134/107 100 03/18/22 16:59 50 03/18/22 16:45 49 L 16 134/107 100 03/18/22 16:30 93.6 F L 39 L 16 03/18/22 16:28 100 03/18/22 16:05 100 03/18/22 10:30 45 L 11 L 114/55 96 03/18/22 10:00 44 L 14 115/62 96 Intake and Output 03/18/22 03/19/22 03/19/22 22:59 06:59 14:59 Intake Total 1532.445 780.952 416.577 Output Total 2417 1336 185 Balance -884.555 -555.048 231.577 Intake: IV 857 692 138 ACETAMINOPHEN IV (For NPO 100 100 ) 1,000 mg In Empty Bag 1 bag @ 400 mls/hr IVPB Q6HR [facility] Rx#:[id number] CO/CI 180 120 20 Lactated Ringers 1,000 ml 350 400 100 @ 50 mls/hr IV .Q20H [facility] Rx#:[id number] Potassium Chloride 10 meq 200 In Water For Injection 1 100ml.bag @ 100 mls/hr IVPB Q1H [facility] Rx#: [id number] Pressure bags 27 72 18 Intake, IV Titration 675.445 88.952 278.577 Amount Albumin Human 5% 250 ml @ 250 0 mls/hr IVPB .STK-[facility] Rx#:[id number] Albumin Human 5% 250 ml 250 In Empty Bag 1 bag @ 250 mls/hr IVPB Q1HR PRN Rx#: [id number] Amiodarone 450 mg In 16.6 Dextrose 5% in Water 250 ml @ 0.5 MG/MIN 16.667 mls/hr IV .Q15H PRN Rx#: [id number] Clevidipine Butyrate 25 24.967 mg In Empty Bag 1 bag @ 1 MG/HR 2 mls/hr IV .Q24H [facility] Rx#:[id number] DOPamine DRIP 800 mg In 46.582 Dextrose/Water 1 250ml. bag @ 5 MCG/KG/MIN 11.091 mls/hr IV .[id number] [facility] Rx#:[id number] Dexmedetomidine/0.9% NaCl 22.083 (Pmx) 400 mcg In Empty Bag 1 bag @ Titrate IV . Q0M [facility] Rx#:[id number] Diltiazem 125 mg In 11.5 Sodium Chloride 0.9% 100 ml @ 5 MG/HR 5 mls/hr IV .Q24H [facility] Rx#:[id number] Insulin Regular 100 unit 27.236 38.952 11.977 In Sodium Chloride 0.9% 100 ml @ Per Protocol IV .Q0M [facility] Rx#:[id number] Magnesium Sulfate-D5w Pmx 200 1 gm In Dextrose/Water 1 100ml.bag @ 100 mls/hr IVPB Q1H [facility] Rx#: [id number] Nitroglycerin-D5w Pmx 50 1.85 mg In Dextrose/Water 1 250ml.bag @ 5 MCG/MIN 1.5 mls/hr IV .Q24H [facility] Rx#: [id number] ceFAZolin 2 gm In Sodium 50 Chloride 0.9% 50 ml @ 100 mls/hr IVPB ONCE ONE Rx# :[id number] ceFAZolin 2 gm In Sodium 50 Chloride 0.9% 50 ml @ 100 mls/hr IVPB Q8H [facility] Rx#: [id number] propofoL 1,000 mg In 41.227 Empty Bag 1 bag @ Titrate IV .Q0M [facility] Rx#: [id number] Output: Chest Tube Drainage 192 291 80 Mediastinal/Left Pleural 192 291 80 Urine 1025 1045 105 Estimated Blood Loss 1200 Other: Voiding Method Indwelling Catheter Indwelling Catheter Weight 118.7 kg ABP, PAP, CO, CI - Last 8 Hours Arterial Blood Pressure 110/42 Arterial Blood Pressure 148/54 Arterial Blood Pressure 141/60 Arterial Blood Pressure 152/72 Arterial Blood Pressure 152/63 Arterial Blood Pressure 149/59 Arterial Blood Pressure 147/66 Pulmonary Artery Pressure 33/10 Pulmonary Artery Pressure 32/12 Pulmonary Artery Pressure 29/11 Pulmonary Artery Pressure 61/34 Pulmonary Artery Pressure 38/20 Pulmonary Artery Pressure 44/11 Pulmonary Artery Pressure 40/17 Cardiac Output 3.8 Cardiac Output 4.5 Cardiac Output 4.5 Cardiac Output 6 Cardiac Output 4.6 Cardiac Index 1.7 Cardiac Index 2 Cardiac Index 2 Cardiac Index 2.7 Cardiac Index 2.1 Results 03/19/22 03:00 03/19/22 03:00 Cardiac Enzymes 03/18/22 03/19/22 Range/Units 16:40 03:00 AST 21 36 (14-36) U/L Coagulation 03/18/22 Range/Units 16:40 PT 12.3 H (9.0-12.0) sec APTT 26.5 (22.0-30.0) sec Lipids 03/18/22 Range/Units 07:55 Triglycerides 67.10 (0.00-149.00) mg/dL Cholesterol 155.00 (0.00-200.00) mg/dL HDL Cholesterol 57.00 (40.00-60.00) mg/dL Cholesterol/HDL Ratio 2.72 Ratio CBC 03/18/22 03/18/22 03/18/22 Range/Units 07:55 16:40 18:50 WBC 13.9 H 17.8 H (3.8-10.6) k/uL RBC 3.17 L 3.43 L (3.80-5.40) m/uL Hgb 10.0 L D 10.7 L (11.4-16.0) gm/dL Hct 29.8 L 32.5 L (34.0-46.0) % Plt Count 126 L 76 L 106 L (150-450) k/uL 03/18/22 03/19/22 Range/Units 21:30 03:00 WBC 15.4 H 13.9 H (3.8-10.6) k/uL RBC 3.27 L 3.32 L (3.80-5.40) m/uL Hgb 10.5 L 10.4 L (11.4-16.0) gm/dL Hct 30.8 L 30.9 L (34.0-46.0) % Plt Count 85 L 90 L (150-450) k/uL Comprehensive Metabolic Panel 03/18/22 03/19/22 Range/Units 16:40 03:00 Sodium 139 135 L (137-145) mmol/L Potassium 3.8 4.1 (3.5-5.1) mmol/L Chloride 112 H 107 (98-107) mmol/L Carbon Dioxide 20 L 21 L (22-30) mmol/L BUN 13 15 (7-17) mg/dL Creatinine 0.61 0.68 (0.52-1.04) mg/dL Glucose 142 H 120 H (74-99) mg/dL Calcium 8.5 8.6 (8.4-10.2) mg/dL AST 21 36 (14-36) U/L ALT 14 19 (4-34) U/L Alkaline Phosphatase 47 53 (38-126) U/L Total Protein 5.4 L 5.6 L (6.3-8.2) g/dL Albumin 3.7 3.7 (3.5-5.0) g/dL Current Medications Generic Name Dose Route Start Last Admin Trade Name Freq PRN Reason Stop Dose Admin Hydrocodone Bitart/Acetaminophen 2 each 03/19/22 03:35 03/19/22 05:17 Hydrocodone/Apap 5-325mg 1 Each Tab PO 2 each Q4HR PRN Administration Severe Pain (Scale 7 to 10) Hydrocodone Bitart/Acetaminophen 1 each 03/19/22 03:35 Hydrocodone/Apap 5-325mg 1 Each Tab PO Q4HR PRN Moderate Pain (Scale 4 to 6) Albuterol/Ipratropium 3 ml 03/18/22 16:23 Ipratropium-Albuterol 3 Ml Neb INHALATION RT-Q2H PRN Shortness Of Breath Or Wheezing Albuterol/Ipratropium 3 ml 03/19/22 08:00 03/19/22 09:03 Ipratropium-Albuterol 3 Ml Neb INHALATION 3 ml RT-QID [facility] Administration Aspirin 325 mg 03/19/22 09:00 03/19/22 08:32 Aspirin 325 Mg Tab PO 325 mg DAILY [facility] Administration Atorvastatin Calcium 40 mg 03/18/22 21:00 03/18/22 20:36 Atorvastatin 40 Mg Tab PO 40 mg HS [facility] Administration Benzocaine/Menthol 1 each 03/18/22 16:23 Benzocaine/Menthol Lozeng 1 Each Lozenge MUCOUS MEM Q2H PRN Sore Throat Bisacodyl 10 mg 03/19/22 09:00 Bisacodyl 10 Mg Supp RECTAL DAILY PRN Constipation Clopidogrel Bisulfate 75 mg 03/19/22 09:00 03/19/22 08:33 Clopidogrel 75 Mg Tab PO 75 mg DAILY [facility] Administration Dextrose/Water 25 ml 03/18/22 16:23 Dextrose 50% Syringe 50 Ml IVP PER PROTOCOL PRN Hypoglycemia Protocol Dextrose/Water 50 ml 03/18/22 16:23 Dextrose 50% Syringe 50 Ml IVP PER PROTOCOL PRN Hypoglycemia Protocol Heparin Sodium (Porcine) 5,000 unit 03/18/22 16:23 03/19/22 08:32 Heparin Sodium,Porcine/Pf 5,000 Unit/0.5 Ml Syringe SQ 5,000 unit Q8HR [facility] Administration Clevidipine 25 mg/ IV Solution 50 mls @ 2 mls/hr 03/18/22 16:23 03/18/22 20:15 IV 0 mg/hr .Q24H [facility] 0 mls/hr Titration Protocol 1 MG/HR Diltiazem HCl 125 mg/ Sodium 125 mls @ 5 mls/hr 03/18/22 17:30 03/18/22 19:08 Chloride IV 0 mg/hr .Q24H [facility] 0 mls/hr Infusion 5 MG/HR Nitroglycerin/Dextrose 50 mg/ 250 mls @ 1.5 mls/hr 03/18/22 16:23 03/18/22 17:26 IV Solution IV 5 mcg/min .Q24H [facility] 1.5 mls/hr Infusion 5 MCG/MIN Amiodarone HCl 150 mg/ 103 mls @ 618 mls/hr 03/18/22 16:23 03/18/22 21:44 Dextrose/Water IV 618 mls/hr .Q10M PRN Administration A.FIB/FLUTTER Protocol Amiodarone HCl 360 mg/ 207.2 mls @ 34.533 mls/hr 03/18/22 16:23 Dextrose/Water IV .Q6H PRN A.FIB/FLUTTER Protocol 1 MG/MIN Amiodarone HCl 450 mg/ 250 mls @ 16.667 mls/hr 03/18/22 16:23 03/18/22 21:50 Dextrose/Water IV 0.5 mg/min .Q15H PRN 16.667 mls/hr A.FIB/FLUTTER Administration Protocol 0.5 MG/MIN Albumin Human 250 ml/ IV 250 mls @ 250 mls/hr 03/18/22 16:23 03/19/22 08:38 Solution IVPB 03/20/22 16:24 250 mls/hr Q1HR PRN Administration For Volume Protocol Lactated Ringer's 1,000 mls @ 50 mls/hr 03/18/22 16:23 03/18/22 16:49 Lactated Ringers IV 50 mls/hr .Q20H [facility] Administration Propofol 1,000 mg/ IV Solution 100 mls @ 0 mls/hr 03/18/22 16:23 03/18/22 19:43 IV 0 mcg/kg/min .Q0M [facility] 0 mls/hr Titration Protocol Titrate Dexmedetomidine HCl 400 mcg/ 100 mls @ 0 mls/hr 03/18/22 16:23 03/18/22 21:14 IV Solution IV 03/19/22 16:25 0 mcg/kg/hr .Q0M [facility] 0 mls/hr Titration Protocol Titrate Cefazolin Sodium 2 gm/ Sodium 50 mls @ 100 mls/hr 03/18/22 21:00 03/19/22 05:13 Chloride IVPB 03/19/22 13:29 100 mls/hr Q8H [facility] Administration Protocol Insulin Human Regular 100 unit 101 mls @ 0 mls/hr 03/18/22 17:30 03/19/22 08:26 / Sodium Chloride IV 0 units/hr .Q0M [facility] 0 mls/hr Titration Protocol Per Protocol Dopamine HCl/Dextrose 800 mg/ 250 mls @ 11.091 mls/hr 03/18/22 16:45 03/18/22 21:05 IV Solution IV 3 mcg/kg/min .[id number] [facility] 6.654 mls/hr Infusion 5 MCG/KG/MIN Magnesium Hydroxide 2,400 mg 03/19/22 09:00 Magnesium Hydroxide 2,400 Mg/10 Ml Cup PO BID PRN Constipation Metoclopramide HCl 10 mg 03/18/22 16:23 Metoclopramide 5 Mg/Ml 2 Ml Vial IVP Q4H PRN Nausea And Vomiting Metoprolol Tartrate 12.5 mg 03/19/22 09:00 03/19/22 08:48 Metoprolol Tartrate 12.5 Mg Tab PO Not Given BID [facility] Miscellaneous Information 1 each 03/18/22 16:23 Potassium Replacement Protocol 1 Each Misc MISCELLANE DAILY PRN Per Protocol Protocol Miscellaneous Information 1 each 03/18/22 16:23 Magnesium Replacement Protocol 1 Each Misc MISCELLANE DAILY PRN Per Protocol Protocol Multivitamins 1 each 03/19/22 12:00 Multivitamins, Thera 1 Each Tab PO DAILY@1200 [facility] Mupirocin 1 applic 03/18/22 21:00 03/19/22 08:33 Mupirocin 2% Oint 22 Gm Tube NASAL 03/21/22 21:01 1 applic BID [facility] Administration Ondansetron HCl 4 mg 03/18/22 16:23 Ondansetron 4 Mg/2 Ml Vial IVP Q6HR PRN Nausea And Vomiting Pantoprazole Sodium 40 mg 03/19/22 09:00 03/19/22 08:32 Pantoprazole 40 Mg/10 Ml Vial IVP 40 mg DAILY [facility] Administration Senna/Docusate Sodium 2 each 03/19/22 21:00 Sennosides-Docusate Sodium 1 Each Tab PO HS [facility] Sodium Chloride 10 ml 03/18/22 21:00 03/19/22 08:34 Sodium Chloride 0.9% Flush 10 Ml Syringe IV 10 ml BID [facility] Administration Intake and Output 03/18/22 03/19/22 03/19/22 22:59 06:59 14:59 Intake Total 1532.445 780.952 416.577 Output Total 2417 1336 185 Balance -884.555 -555.048 231.577 Intake: IV 857 692 138 ACETAMINOPHEN IV (For NPO 100 100 ) 1,000 mg In Empty Bag 1 bag @ 400 mls/hr IVPB Q6HR [facility] Rx#:[id number] CO/CI 180 120 20 Lactated Ringers 1,000 ml 350 400 100 @ 50 mls/hr IV .Q20H [facility] Rx#:[id number] Potassium Chloride 10 meq 200 In Water For Injection 1 100ml.bag @ 100 mls/hr IVPB Q1H [facility] Rx#: [id number] Pressure bags 27 72 18 Intake, IV Titration 675.445 88.952 278.577 Amount Albumin Human 5% 250 ml @ 250 0 mls/hr IVPB .STK-MED ONE Rx#:[id number] Albumin Human 5% 250 ml 250 In Empty Bag 1 bag @ 250 mls/hr IVPB Q1HR PRN Rx#: [id number] Amiodarone 450 mg In 16.6 Dextrose 5% in Water 250 ml @ 0.5 MG/MIN 16.667 mls/hr IV .Q15H PRN Rx#: [id number] Clevidipine Butyrate 25 24.967 mg In Empty Bag 1 bag @ 1 MG/HR 2 mls/hr IV .Q24H [facility] Rx#:[id number] DOPamine DRIP 800 mg In 46.582 Dextrose/Water 1 250ml. bag @ 5 MCG/KG/MIN 11.091 mls/hr IV .[id number] [facility] Rx#:[id number] Dexmedetomidine/0.9% NaCl 22.083 (Pmx) 400 mcg In Empty Bag 1 bag @ Titrate IV . Q0M [facility] Rx#:[id number] Diltiazem 125 mg In 11.5 Sodium Chloride 0.9% 100 ml @ 5 MG/HR 5 mls/hr IV .Q24H [facility] Rx#:[id number] Insulin Regular 100 unit 27.236 38.952 11.977 In Sodium Chloride 0.9% 100 ml @ Per Protocol IV .Q0M [facility] Rx#:[id number] Magnesium Sulfate-D5w Pmx 200 1 gm In Dextrose/Water 1 100ml.bag @ 100 mls/hr IVPB Q1H [facility] Rx#: [id number] Nitroglycerin-D5w Pmx 50 1.85 mg In Dextrose/Water 1 250ml.bag @ 5 MCG/MIN 1.5 mls/hr IV .Q24H [facility] Rx#: [id number] ceFAZolin 2 gm In Sodium 50 Chloride 0.9% 50 ml @ 100 mls/hr IVPB ONCE ONE Rx# :[id number] ceFAZolin 2 gm In Sodium 50 Chloride 0.9% 50 ml @ 100 mls/hr IVPB Q8H [facility] Rx#: [id number] propofoL 1,000 mg In 41.227 Empty Bag 1 bag @ Titrate IV .Q0M [facility] Rx#: [id number] Output: Chest Tube Drainage 192 291 80 Mediastinal/Left Pleural 192 291 80 Urine 1025 1045 105 Estimated Blood Loss 1200 Other: Voiding Method Indwelling Catheter Indwelling Catheter Weight 118.7 kg 03/19/22 03:00 03/19/22 03:00
--- NOTE | 2022-03-19 09:52 | P.CONS ---
History of Present Illness - History of Present Illness This is a pleasant 76 years old female with multiple medical problems as below including Coronary Artery Disease, Hyperlipidemia, Hypertension, Pulmonary Embolus (PE) not on anticoagulation, , Sleep Apnea/CPAP/BIPAP Patient was admitted for his unstable angina and she underwent coronary artery bypass grafting. Today is postoperative day #1 Patient is sitting in chair. Tomorrow, no chest pain or dyspnea, no diarrhea or abdominal pain or vomiting. Not shown WBC 13.9. Hemoglobin 10.4. BMP and liver enzymes are unremarkable. Hemoglobin A1c is 6.2 Vitals stable, temperature 99.7, she is saturating 96% on 3 L oxygen via nasal cannula Ejection fraction: 40-45% Chest x-ray: Mild pulmonary vascular congestion, no consolidation. Carotid duplex: 50% stenosis Review of Systems Review of systems CONSTITUTIONAL: No fever, no malaise, no fatigue. HEENT: No recent visual problems or hearing problems. Denied any sore throat. CARDIOVASCULAR: No orthopnea, PND, no palpitations, no syncope. PULMONARY: No shortness of breath, no cough, no hemoptysis. GASTROINTESTINAL: No diarrhea, no nausea, no vomiting, no abdominal pain. Nor moactive bowel sounds. NEUROLOGICAL: No headaches, no weakness, no numbness. HEMATOLOGICAL: Denies any bleeding or petechiae. GENITOURINARY: Denies any burning micturition, frequency, or urgency. MUSCULOSKELETAL/RHEUMATOLOGICAL: Denies any joint pain, swelling, or any muscle pain. ENDOCRINE: Denies any polyuria or polydipsia. Past Medical History Past Medical History: Coronary Artery Disease (CAD), Chest Pain / Angina, Hyperlipidemia, Hypertension, Myocardial Infarction (LA), Pulmonary Embolus (PE), Sleep Apnea/CPAP/BIPAP Last Myocardial Infarction Date:: 02/18/14 History of Any Multi-Drug Resistant Organisms: None Reported Past Surgical History: Heart Catheterization With Stent, Hysterectomy Past Anesthesia/Blood Transfusion Reactions: No Reported Reaction Date of Last Stent Placement:: 02/18/14 Past Psychological History: No Psychological Hx Reported Smoking Status: Never smoker Past Alcohol Use History: None Reported Past Drug Use History: None Reported - Past Family History Father Family Medical History: Myocardial Infarction (LA) Additional Family Medical History / Comment(s): Premature coronary artery disease, multiple myocardial infarctions, at 66 Mother Family Medical History: Cancer, Vascular Disorder Medications and Allergies Home Medications Medication Instructions Recorded Confirmed Type Meclizine [Antivert] 12.5 mg PO TID PRN 02/18/14 03/18/22 History Multivitamins, Thera [Multivitamin 1 each PO DAILY@1200 02/18/14 03/18/22 History (formulary)] [place]-3 Fatty Acids/Fish Oil [Fish 1 each PO DAILY 02/18/14 03/18/22 History Oil 1,000 mg Softgel] Omeprazole [PriLOSEC] 20 mg PO [id number] 02/18/14 03/18/22 History hydroCHLOROthiazide [Hydrodiuril] 25 mg PO DAILY 02/18/14 03/18/22 History Enalapril [Vasotec] 10 mg PO BID #60 tab 02/20/14 03/18/22 Rx Nitroglycerin Sl Tabs [Nitrostat] 0.4 mg SUBLINGUAL Q5M PRN #25 tab 02/20/14 03/18/22 Rx ALPRAZolam [Xanax] 0.5 mg PO HS PRN 03/18/22 03/18/22 History Aspirin [Adult Low Dose Aspirin EC] 81 mg PO DAILY 03/18/22 03/18/22 History Atorvastatin [Lipitor] 40 mg PO HS 03/18/22 03/18/22 History Calcium Carbonate [Calcium] 500 mg PO DAILY 03/18/22 03/18/22 History Enalapril Maleate 10 mg PO BID 03/18/22 03/18/22 History Isosorbide Mononitrate ER [Imdur] 30 mg PO DAILY 03/18/22 03/18/22 History Melatonin [Melatonin Chew] 2.5 mg PO HS 03/18/22 03/18/22 History Metoprolol Succinate [Metoprolol 12.5 mg PO DAILY 03/18/22 03/18/22 History Succinate ER] traMADol HCL 50 mg PO Q6H 03/18/22 03/18/22 History Allergies Allergy/AdvReac Type Severity Reaction Status Date / Time No Known Allergies Allergy Verified 02/18/14 11:09 Physical Exam Vitals: Vital Signs Temp Pulse Pulse Resp BP BP Pulse Ox 03/19/22 07:00 70 17 97 03/19/22 06:00 82 22 97 03/19/22 05:00 77 27 H 95 03/19/22 04:00 99.3 F 89 21 95 03/19/22 03:00 82 19 96 03/19/22 02:00 71 16 97 03/19/22 01:00 72 22 136/69 96 03/19/22 00:00 99.0 F 75 27 H 97 03/18/22 23:07 72 24 98 03/18/22 23:00 62 20 137/58 100 03/18/22 22:00 67 20 109/66 97 03/18/22 21:18 95 03/18/22 21:00 71 17 105/52 98 03/18/22 20:27 03/18/22 20:00 97.3 F L 73 21 96 03/18/22 19:45 86 35 H 97 03/18/22 19:30 74 27 H 95 03/18/22 19:15 90 L 03/18/22 19:00 74 19 94 L 03/18/22 18:45 72 18 94 L 03/18/22 18:30 70 18 96 03/18/22 18:15 75 21 96 03/18/22 18:00 71 16 92 L 03/18/22 17:45 71 10 L 95 03/18/22 17:35 03/18/22 17:30 76 14 97 03/18/22 17:15 83 15 134/107 98 03/18/22 17:00 45 L 16 134/107 100 03/18/22 16:59 03/18/22 16:45 49 L 16 134/107 100 03/18/22 16:30 93.6 F L 39 L 16 03/18/22 16:28 03/18/22 16:05 03/18/22 10:30 45 L 11 L 114/55 96 03/18/22 10:00 44 L 14 115/62 96 03/18/22 09:30 48 L 15 118/56 96 03/18/22 09:00 43 L 18 135/68 95 03/18/22 08:59 86 L 03/18/22 08:35 54 L 16 132/63 98 03/18/22 08:34 97.7 F 135/68 96 03/18/22 08:26 50 L 16 172/69 98 03/18/22 08:11 56 L 16 143/63 98 03/18/22 07:56 54 L 16 129/57 100 FiO2 03/19/22 07:00 03/19/22 06:00 03/19/22 05:00 03/19/22 04:00 03/19/22 03:00 03/19/22 02:00 03/19/22 01:00 03/19/22 00:00 03/18/22 23:07 03/18/22 23:00 03/18/22 22:00 03/18/22 21:18 03/18/22 21:00 03/18/22 20:27 50 03/18/22 20:00 50 03/18/22 19:45 03/18/22 19:30 03/18/22 19:15 03/18/22 19:00 03/18/22 18:45 03/18/22 18:30 03/18/22 18:15 03/18/22 18:00 03/18/22 17:45 03/18/22 17:35 50 03/18/22 17:30 03/18/22 17:15 03/18/22 17:00 03/18/22 16:59 50 03/18/22 16:45 03/18/22 16:30 03/18/22 16:28 100 03/18/22 16:05 100 03/18/22 10:30 03/18/22 10:00 03/18/22 09:30 03/18/22 09:00 03/18/22 08:59 03/18/22 08:35 03/18/22 08:34 03/18/22 08:26 03/18/22 08:11 03/18/22 07:56 Intake and Output 03/18/22 03/19/22 03/19/22 22:59 06:59 14:59 Intake Total 1532.445 780.952 313.907 Output Total 2417 1336 115 Balance -884.555 -555.048 198.907 Intake: IV 857 692 59 ACETAMINOPHEN IV (For NPO 100 100 ) 1,000 mg In Empty Bag 1 bag @ 400 mls/hr IVPB Q6HR [facility] Rx#:[id number] CO/CI 180 120 Lactated Ringers 1,000 ml 350 400 50 @ 50 mls/hr IV .Q20H [facility] Rx#:[id number] Potassium Chloride 10 meq 200 In Water For Injection 1 100ml.bag @ 100 mls/hr IVPB Q1H [facility] Rx#: [id number] Pressure bags 27 72 9 Intake, IV Titration 675.445 88.952 254.907 Amount Albumin Human 5% 250 ml @ 250 0 mls/hr IVPB .STK-MED ONE Rx#:[id number] Albumin Human 5% 250 ml 250 In Empty Bag 1 bag @ 250 mls/hr IVPB Q1HR PRN Rx#: [id number] Clevidipine Butyrate 25 24.967 mg In Empty Bag 1 bag @ 1 MG/HR 2 mls/hr IV .Q24H [facility] Rx#:[id number] DOPamine DRIP 800 mg In 46.582 Dextrose/Water 1 250ml. bag @ 5 MCG/KG/MIN 11.091 mls/hr IV .[id number] [facility] Rx#:[id number] Dexmedetomidine/0.9% NaCl 22.083 (Pmx) 400 mcg In Empty Bag 1 bag @ Titrate IV . Q0M [facility] Rx#:[id number] Diltiazem 125 mg In 11.5 Sodium Chloride 0.9% 100 ml @ 5 MG/HR 5 mls/hr IV .Q24H [facility] Rx#:[id number] Insulin Regular 100 unit 27.236 38.952 4.907 In Sodium Chloride 0.9% 100 ml @ Per Protocol IV .Q0M [facility] Rx#:[id number] Magnesium Sulfate-D5w Pmx 200 1 gm In Dextrose/Water 1 100ml.bag @ 100 mls/hr IVPB Q1H [facility] Rx#: [id number] Nitroglycerin-D5w Pmx 50 1.85 mg In Dextrose/Water 1 250ml.bag @ 5 MCG/MIN 1.5 mls/hr IV .Q24H [facility] Rx#: [id number] ceFAZolin 2 gm In Sodium 50 Chloride 0.9% 50 ml @ 100 mls/hr IVPB ONCE ONE Rx# :[id number] ceFAZolin 2 gm In Sodium 50 Chloride 0.9% 50 ml @ 100 mls/hr IVPB Q8H [facility] Rx#: [id number] propofoL 1,000 mg In 41.227 Empty Bag 1 bag @ Titrate IV .Q0M [facility] Rx#: [id number] Output: Chest Tube Drainage 192 291 40 Mediastinal/Left Pleural 192 291 40 Urine 1025 1045 75 Estimated Blood Loss 1200 Other: Voiding Method Indwelling Catheter Indwelling Catheter Weight 118.7 kg ABP, PAP, CO, CI - Last 8 Hours Arterial Blood Pressure 148/54 Arterial Blood Pressure 141/60 Arterial Blood Pressure 152/72 Arterial Blood Pressure 152/63 Arterial Blood Pressure 149/59 Arterial Blood Pressure 147/66 Arterial Blood Pressure 146/62 Arterial Blood Pressure 143/62 Pulmonary Artery Pressure 32/12 Pulmonary Artery Pressure 29/11 Pulmonary Artery Pressure 61/34 Pulmonary Artery Pressure 38/20 Pulmonary Artery Pressure 44/11 Pulmonary Artery Pressure 40/17 Pulmonary Artery Pressure 43/18 Pulmonary Artery Pressure 40/21 Cardiac Output 4.5 Cardiac Output 4.5 Cardiac Output 6 Cardiac Output 4.6 Cardiac Output 5.1 Cardiac Index 2 Cardiac Index 2 Cardiac Index 2.7 Cardiac Index 2.1 Cardiac Index 2.3 GENERAL: The patient is alert and oriented x3, not in any acute distress. Well developed, well nourished. HEENT: Pupils are round and equally reacting to light. EOMI. No scleral icterus. No conjunctival pallor. Normocephalic, atraumatic. No pharyngeal erythema. No thyromegaly. -CARDIOVASCULAR: S1 and S2 present. No murmurs, rubs, or gallops. Surgical wound with dressing in a Place, rest of exam is deferred to surgery team PULMONARY: Chest is clear to auscultation, no wheezing or crackles. ABDOMEN: Soft, nontender, nondistended, normoactive bowel sounds. No palpable organomegaly. MUSCULOSKELETAL: No joint swelling or deformity. EXTREMITIES: No cyanosis, clubbing, or pedal edema. NEUROLOGICAL: Gross neurological examination did not reveal any focal deficits. SKIN: No rashes. no petechiae. Results CBC & Chem 7: 03/19/22 03:00 03/19/22 03:00 Labs: Abnormal Lab Results - Last 24 Hours (Table) 03/18/22 03/18/22 03/18/22 Range/Units 07:55 07:55 07:55 WBC (3.8-10.6) k/uL RBC (3.80-5.40) m/uL Hgb (11.4-16.0) gm/dL Hct (34.0-46.0) % Plt Count 126 L (150-450) k/uL Neutrophils # (1.3-7.7) k/uL Lymphocytes # (1.0-4.8) k/uL PT (9.0-12.0) sec INR (<1.2) ABG pO2 (83-108) mmHg ABG Total CO2 (19-24) mmol/L ABG O2 Saturation (94-97) % ABG Hematocrit (34.0-46.0) % ABG Glucose (75-99) mg/dL Hemoglobin (11.4-16.0) gm/dL Sodium (137-145) mmol/L Chloride (98-107) mmol/L Carbon Dioxide (22-30) mmol/L Glucose 131 H (74-99) mg/dL POC Glucose (mg/dL) (70-110) mg/dL Hemoglobin A1c (0.0-6.0) % Total Protein (6.3-8.2) g/dL Arterial Blood Glucose (75-99) mg/dL Ur Leukocyte Esterase (Negative) Urine Bacteria (None) /hpf Crossmatch See Detail 03/18/22 03/18/22 03/18/22 Range/Units 07:55 09:01 09:03 WBC (3.8-10.6) k/uL RBC (3.80-5.40) m/uL Hgb (11.4-16.0) gm/dL Hct (34.0-46.0) % Plt Count (150-450) k/uL Neutrophils # (1.3-7.7) k/uL Lymphocytes # (1.0-4.8) k/uL PT (9.0-12.0) sec INR (<1.2) ABG pO2 (83-108) mmHg ABG Total CO2 (19-24) mmol/L ABG O2 Saturation (94-97) % ABG Hematocrit (34.0-46.0) % ABG Glucose (75-99) mg/dL Hemoglobin (11.4-16.0) gm/dL Sodium (137-145) mmol/L Chloride (98-107) mmol/L Carbon Dioxide (22-30) mmol/L Glucose (74-99) mg/dL POC Glucose (mg/dL) 118 H (70-110) mg/dL Hemoglobin A1c 6.2 H (0.0-6.0) % Total Protein (6.3-8.2) g/dL Arterial Blood Glucose (75-99) mg/dL Ur Leukocyte Esterase Moderate H (Negative) Urine Bacteria Rare H (None) /hpf Crossmatch 03/18/22 03/18/22 03/18/22 Range/Units 12:17 13:31 14:27 WBC (3.8-10.6) k/uL RBC (3.80-5.40) m/uL Hgb (11.4-16.0) gm/dL Hct (34.0-46.0) % Plt Count (150-450) k/uL Neutrophils # (1.3-7.7) k/uL Lymphocytes # (1.0-4.8) k/uL PT (9.0-12.0) sec INR (<1.2) ABG pO2 255 H 164 H 171 H (83-108) mmHg ABG Total CO2 25 H 26 H (19-24) mmol/L ABG O2 Saturation 99.4 H 98.9 H 98.9 H (94-97) % ABG Hematocrit 31 L (34.0-46.0) % ABG Glucose 119 H 138 H 141 H (75-99) mg/dL Hemoglobin 11.3 L 10.2 L (11.4-16.0) gm/dL Sodium (137-145) mmol/L Chloride (98-107) mmol/L Carbon Dioxide (22-30) mmol/L Glucose (74-99) mg/dL POC Glucose (mg/dL) (70-110) mg/dL Hemoglobin A1c (0.0-6.0) % Total Protein (6.3-8.2) g/dL Arterial Blood Glucose 119 H 138 H 141 H (75-99) mg/dL Ur Leukocyte Esterase (Negative) Urine Bacteria (None) /hpf Crossmatch 03/18/22 03/18/22 03/18/22 Range/Units 15:21 16:39 16:40 WBC 13.9 H (3.8-10.6) k/uL RBC 3.17 L (3.80-5.40) m/uL Hgb 10.0 L D (11.4-16.0) gm/dL Hct 29.8 L (34.0-46.0) % Plt Count 76 L (150-450) k/uL Neutrophils # 11.6 H (1.3-7.7) k/uL Lymphocytes # (1.0-4.8) k/uL PT (9.0-12.0) sec INR (<1.2) ABG pO2 120 H (83-108) mmHg ABG Total CO2 (19-24) mmol/L ABG O2 Saturation 98.2 H (94-97) % ABG Hematocrit 30 L (34.0-46.0) % ABG Glucose 139 H (75-99) mg/dL Hemoglobin 9.7 L (11.4-16.0) gm/dL Sodium (137-145) mmol/L Chloride (98-107) mmol/L Carbon Dioxide (22-30) mmol/L Glucose (74-99) mg/dL POC Glucose (mg/dL) 158 H (70-110) mg/dL Hemoglobin A1c (0.0-6.0) % Total Protein (6.3-8.2) g/dL Arterial Blood Glucose 139 H (75-99) mg/dL Ur Leukocyte Esterase (Negative) Urine Bacteria (None) /hpf Crossmatch 03/18/22 03/18/22 03/18/22 Range/Units 16:40 16:40 16:55 WBC (3.8-10.6) k/uL RBC (3.80-5.40) m/uL Hgb (11.4-16.0) gm/dL Hct (34.0-46.0) % Plt Count (150-450) k/uL Neutrophils # (1.3-7.7) k/uL Lymphocytes # (1.0-4.8) k/uL PT 12.3 H (9.0-12.0) sec INR 1.2 H (<1.2) ABG pO2 311 H (83-108) mmHg ABG Total CO2 (19-24) mmol/L ABG O2 Saturation 100.0 H (94-97) % ABG Hematocrit (34.0-46.0) % ABG Glucose (75-99) mg/dL Hemoglobin (11.4-16.0) gm/dL Sodium (137-145) mmol/L Chloride 112 H (98-107) mmol/L Carbon Dioxide 20 L (22-30) mmol/L Glucose 142 H (74-99) mg/dL POC Glucose (mg/dL) (70-110) mg/dL Hemoglobin A1c (0.0-6.0) % Total Protein 5.4 L (6.3-8.2) g/dL Arterial Blood Glucose (75-99) mg/dL Ur Leukocyte Esterase (Negative) Urine Bacteria (None) /hpf Crossmatch 03/18/22 03/18/22 03/18/22 Range/Units 17:10 17:58 18:50 WBC (3.8-10.6) k/uL RBC (3.80-5.40) m/uL Hgb (11.4-16.0) gm/dL Hct (34.0-46.0) % Plt Count (150-450) k/uL Neutrophils # (1.3-7.7) k/uL Lymphocytes # (1.0-4.8) k/uL PT (9.0-12.0) sec INR (<1.2) ABG pO2 (83-108) mmHg ABG Total CO2 (19-24) mmol/L ABG O2 Saturation (94-97) % ABG Hematocrit (34.0-46.0) % ABG Glucose (75-99) mg/dL Hemoglobin (11.4-16.0) gm/dL Sodium (137-145) mmol/L Chloride (98-107) mmol/L Carbon Dioxide (22-30) mmol/L Glucose (74-99) mg/dL POC Glucose (mg/dL) 154 H 178 H 177 H (70-110) mg/dL Hemoglobin A1c (0.0-6.0) % Total Protein (6.3-8.2) g/dL Arterial Blood Glucose (75-99) mg/dL Ur Leukocyte Esterase (Negative) Urine Bacteria (None) /hpf Crossmatch 03/18/22 03/18/22 03/18/22 Range/Units 18:50 20:06 20:48 WBC 17.8 H (3.8-10.6) k/uL RBC 3.43 L (3.80-5.40) m/uL Hgb 10.7 L (11.4-16.0) gm/dL Hct 32.5 L (34.0-46.0) % Plt Count 106 L (150-450) k/uL Neutrophils # 15.7 H (1.3-7.7) k/uL Lymphocytes # (1.0-4.8) k/uL PT (9.0-12.0) sec INR (<1.2) ABG pO2 (83-108) mmHg ABG Total CO2 (19-24) mmol/L ABG O2 Saturation (94-97) % ABG Hematocrit (34.0-46.0) % ABG Glucose (75-99) mg/dL Hemoglobin (11.4-16.0) gm/dL Sodium (137-145) mmol/L Chloride (98-107) mmol/L Carbon Dioxide (22-30) mmol/L Glucose (74-99) mg/dL POC Glucose (mg/dL) 169 H 162 H (70-110) mg/dL Hemoglobin A1c (0.0-6.0) % Total Protein (6.3-8.2) g/dL Arterial Blood Glucose (75-99) mg/dL Ur Leukocyte Esterase (Negative) Urine Bacteria (None) /hpf Crossmatch 03/18/22 03/18/22 03/18/22 Range/Units 21:04 21:30 22:13 WBC 15.4 H (3.8-10.6) k/uL RBC 3.27 L (3.80-5.40) m/uL Hgb 10.5 L (11.4-16.0) gm/dL Hct 30.8 L (34.0-46.0) % Plt Count 85 L (150-450) k/uL Neutrophils # 13.7 H (1.3-7.7) k/uL Lymphocytes # 0.9 L (1.0-4.8) k/uL PT (9.0-12.0) sec INR (<1.2) ABG pO2 (83-108) mmHg ABG Total CO2 (19-24) mmol/L ABG O2 Saturation 97.2 H (94-97) % ABG Hematocrit (34.0-46.0) % ABG Glucose (75-99) mg/dL Hemoglobin (11.4-16.0) gm/dL Sodium (137-145) mmol/L Chloride (98-107) mmol/L Carbon Dioxide (22-30) mmol/L Glucose (74-99) mg/dL POC Glucose (mg/dL) 160 H (70-110) mg/dL Hemoglobin A1c (0.0-6.0) % Total Protein (6.3-8.2) g/dL Arterial Blood Glucose (75-99) mg/dL Ur Leukocyte Esterase (Negative) Urine Bacteria (None) /hpf Crossmatch 03/18/22 03/19/22 03/19/22 Range/Units 23:01 00:09 00:58 WBC (3.8-10.6) k/uL RBC (3.80-5.40) m/uL Hgb (11.4-16.0) gm/dL Hct (34.0-46.0) % Plt Count (150-450) k/uL Neutrophils # (1.3-7.7) k/uL Lymphocytes # (1.0-4.8) k/uL PT (9.0-12.0) sec INR (<1.2) ABG pO2 (83-108) mmHg ABG Total CO2 (19-24) mmol/L ABG O2 Saturation (94-97) % ABG Hematocrit (34.0-46.0) % ABG Glucose (75-99) mg/dL Hemoglobin (11.4-16.0) gm/dL Sodium (137-145) mmol/L Chloride (98-107) mmol/L Carbon Dioxide (22-30) mmol/L Glucose (74-99) mg/dL POC Glucose (mg/dL) 144 H 139 H 120 H (70-110) mg/dL Hemoglobin A1c (0.0-6.0) % Total Protein (6.3-8.2) g/dL Arterial Blood Glucose (75-99) mg/dL Ur Leukocyte Esterase (Negative) Urine Bacteria (None) /hpf Crossmatch 03/19/22 03/19/22 03/19/22 Range/Units 03:00 03:00 03:02 WBC 13.9 H (3.8-10.6) k/uL RBC 3.32 L (3.80-5.40) m/uL Hgb 10.4 L (11.4-16.0) gm/dL Hct 30.9 L (34.0-46.0) % Plt Count 90 L (150-450) k/uL Neutrophils # 12.3 H (1.3-7.7) k/uL Lymphocytes # 0.9 L (1.0-4.8) k/uL PT (9.0-12.0) sec INR (<1.2) ABG pO2 (83-108) mmHg ABG Total CO2 (19-24) mmol/L ABG O2 Saturation (94-97) % ABG Hematocrit (34.0-46.0) % ABG Glucose (75-99) mg/dL Hemoglobin (11.4-16.0) gm/dL Sodium 135 L (137-145) mmol/L Chloride (98-107) mmol/L Carbon Dioxide 21 L (22-30) mmol/L Glucose 120 H (74-99) mg/dL POC Glucose (mg/dL) 125 H (70-110) mg/dL Hemoglobin A1c (0.0-6.0) % Total Protein 5.6 L (6.3-8.2) g/dL Arterial Blood Glucose (75-99) mg/dL Ur Leukocyte Esterase (Negative) Urine Bacteria (None) /hpf Crossmatch 03/19/22 03/19/22 03/19/22 Range/Units 04:00 05:11 06:08 WBC (3.8-10.6) k/uL RBC (3.80-5.40) m/uL Hgb (11.4-16.0) gm/dL Hct (34.0-46.0) % Plt Count (150-450) k/uL Neutrophils # (1.3-7.7) k/uL Lymphocytes # (1.0-4.8) k/uL PT (9.0-12.0) sec INR (<1.2) ABG pO2 (83-108) mmHg ABG Total CO2 (19-24) mmol/L ABG O2 Saturation (94-97) % ABG Hematocrit (34.0-46.0) % ABG Glucose (75-99) mg/dL Hemoglobin (11.4-16.0) gm/dL Sodium (137-145) mmol/L Chloride (98-107) mmol/L Carbon Dioxide (22-30) mmol/L Glucose (74-99) mg/dL POC Glucose (mg/dL) 126 H 114 H 130 H (70-110) mg/dL Hemoglobin A1c (0.0-6.0) % Total Protein (6.3-8.2) g/dL Arterial Blood Glucose (75-99) mg/dL Ur Leukocyte Esterase (Negative) Urine Bacteria (None) /hpf Crossmatch 03/19/22 Range/Units 07:00 WBC (3.8-10.6) k/uL RBC (3.80-5.40) m/uL Hgb (11.4-16.0) gm/dL Hct (34.0-46.0) % Plt Count (150-450) k/uL Neutrophils # (1.3-7.7) k/uL Lymphocytes # (1.0-4.8) k/uL PT (9.0-12.0) sec INR (<1.2) ABG pO2 (83-108) mmHg ABG Total CO2 (19-24) mmol/L ABG O2 Saturation (94-97) % ABG Hematocrit (34.0-46.0) % ABG Glucose (75-99) mg/dL Hemoglobin (11.4-16.0) gm/dL Sodium (137-145) mmol/L Chloride (98-107) mmol/L Carbon Dioxide (22-30) mmol/L Glucose (74-99) mg/dL POC Glucose (mg/dL) 124 H (70-110) mg/dL Hemoglobin A1c (0.0-6.0) % Total Protein (6.3-8.2) g/dL Arterial Blood Glucose (75-99) mg/dL Ur Leukocyte Esterase (Negative) Urine Bacteria (None) /hpf Crossmatch Microbiology - Last 24 Hours (Table) 03/18/22 09:00 Nasal Screen MRSA/MSSA - Preliminary Nasopharyngeal Swab Assessment and Plan Assessment: unstable angina Status post coronary artery bypass grafting 3 with RUBIN to LAD Paroxysmal atrial fibrillation with heart rate controlled Sleep Apnea/CPAP/BIPA hypertensio leukocytosis, most likely reactive Postop anemia expected Hyperlipidemia History of pulmonary embolism Obesity with BMI of 41 Mild cardiomyopathy Plan: Continue with aspirin and Plavix Keep monitoring labs including duplicity and hemoglobin Labs and medication were reviewed.. Continue same treatment. Continue with symptomatic treatment. Resume home medication. Monitor labs and vitals. DVT and GI prophylaxis. Further recommendations as per clinical course of the patient DVT prophylaxis: Deferred to surgery team GI Prophylaxis: Ppi Prognosis is guarded
[2022-03-19] MEDS: DEXTROSE 5% IN WATER 100 ML with AMIODARONE 150 MG IV PRN (10:10)
[2022-03-19] MEDS: INSULIN REGULAR 100 UNIT in SODIUM CHLORIDE 0.9% 100 ML IV SCH (10:11)
[2022-03-19] MEDS: AMIODARONE 450 MG in DEXTROSE 5% IN WATER 250 ML IV PRN ×2 (10:12)
[2022-03-19 10:29] LABS: Hepatitis A Antibody IgM Nonreactive (Nonreactive); Hepatitis B Core IgM Nonreactive (Nonreactive); Hepatitis B Surface Antigen Nonreactive (Nonreactive); Hepatitis C IgG Antibody Nonreactive (Nonreactive)
[2022-03-19 11:07] LABS: Glucose,Whole Blood 139 mg/dL (70-110)
[2022-03-19] MEDS ORDERED: FUROSEMIDE 10 MG/ML 2 ML VIAL IV ONE (11:30)
[2022-03-19 12:06] LABS: Glucose,Whole Blood 121 mg/dL (70-110)
[2022-03-19] MEDS: MULTIVITAMINS, THERA 1 EACH TAB PO SCH (12:06)
--- NOTE | 2022-03-19 13:16 | P.PN ---
Subjective Progress Note Date: 03/19/22 Principal diagnosis: Coronary artery disease, unstable angina, paroxysmal atrial fibrillation. Past medical history significant for coronary artery disease with myocardial infarct ion in 2013, status post PCI to the RCA, hypertension, hyperlipidemia, new onset slow atrial fibrillation, remote history of pulmonary embolism, obstructive sleep apnea with home CPAP use, remote history of pneumonia, lifetime nonsmoker, morbid obesity with a BMI of 41.0 kg/m, borderline diabetic with a preoperative hemoglobin A1c 6.2% and family history of premature coronary artery disease with her father having multiple myocardial infarctions before the age of 60. POD #1 off-pump coronary artery bypass grafting 3 with RUBIN to LAD, left radial artery graft to obtuse marginal, saphenous vein graft to posterior descending coronary artery, endovascular vein harvest, endovascular radial artery harvest, modified Jha maze with bilateral pulmonary vein isolation and exclusion of the left atrial appendage. Postoperative acute blood loss anemia, expected secondary to hemodilution. The patient was seen and examined in follow-up today 03/19/2022 at her bedside in the intensive care unit. She was successfully extubated at 9:16 PM last evening and is currently on 4 L nasal cannula with oxygen saturations 97%. She is achieving 750-1000 mL on her incentive spirometry with much encouragement. Denies any complaints of shortness of breath although she is complaining of some surgical type pain to her chest tube insertion sites when taking a deep breath and rating her pain 4 out of 10 on the pain scale. She reports that the pain medication that she has been getting has been controlling her pain. Currently she is on dopamine drip at 3 mcg/kg/m and nitroglycerin drip at 5 mcg/m. [facility] telemetry is showing third-degree heart block with a heart rate of 70, pacemaker has been placed on DDD of 80 with good capture. She remains hemodynamically stable with current hemodynamic showing a cardiac output of 6.0, cardiac index 2.7, PA pressures 32/10 and a CVP of 7 mmHg. Mediastinal and left pleural chest tube remained in place to low continuous wall suction -20 cm H2O. No air leak is present. Draining thin serosanguineous drainage with 290 mL output in the last 8 hours and 500 mL output since surgery. Laboratory results this morning show a WBC count of 13.9, hemoglobin 10.4, hematocrit 30.9, platelets 90, sodium 135, potassium 4.1, chloride 107, CO2 21, BUN 15, creatinin e 0.68, glucose 120, calcium 8.6 and ionized calcium 5.1. Chest x-ray was reviewed. Objective - Vital Signs Vital signs: Vital Signs Temp 99.5 F 03/19/22 10:00 Pulse 80 03/19/22 12:45 Resp 16 03/19/22 12:45 BP 136/69 03/19/22 01:00 Pulse Ox 97 03/19/22 11:00 FiO2 50 03/18/22 20:27 Intake & Output 03/18/22 03/19/22 03/19/22 18:59 06:59 18:59 Intake Total 8593.150 1015.488 1348.977 Output Total 2485 1518 505 Balance -1463.091 276.488 843.977 Weight 118.3 kg 118.7 kg Intake: IV 803 1049 265 ACETAMINOPHEN IV (For NPO 100 100 ) 1,000 mg In Empty Bag 1 bag @ 400 mls/hr IVPB Q6HR [facility] Rx#:[id number] CO/CI 100 200 60 Lactated Ringers 1,000 ml 200 550 160 @ 50 mls/hr IV .Q20H [facility] Rx#:[id number] Potassium Chloride 10 meq 100 100 In Water For Injection 1 100ml.bag @ 100 mls/hr IVPB Q1H [facility] Rx#: [id number] Pressure bags 99 45 Sodium Chloride 0.9% 1, 150 000 ml In Empty Bag 1 bag @ 1 ML/KG/HR 116.5 mls/ hr IV .Q8H36M [facility] Rx#: [id number] Intake, IV Titration 218.909 745.488 843.977 Amount Albumin Human 5% 250 ml @ 500 0 mls/hr IVPB .[facility] Rx#:[id number] Albumin Human 5% 250 ml 250 In Empty Bag 1 bag @ 250 mls/hr IVPB Q1HR PRN Rx#: [id number] Amiodarone 450 mg In 269.316 Dextrose 5% in Water 250 ml @ 0.5 MG/MIN 16.667 mls/hr IV .Q15H PRN Rx#: [id number] Clevidipine Butyrate 25 2.834 22.133 mg In Empty Bag 1 bag @ 1 MG/HR 2 mls/hr IV .Q24H [facility] Rx#:[id number] DOPamine DRIP 800 mg In 46.582 Dextrose/Water 1 250ml. bag @ 5 MCG/KG/MIN 11.091 mls/hr IV .[id number] [facility] Rx#:[id number] Dexmedetomidine/0.9% NaCl 22.083 (Pmx) 400 mcg In Empty Bag 1 bag @ Titrate IV . Q0M [facility] Rx#:[id number] Diltiazem 125 mg In 11.5 Sodium Chloride 0.9% 100 ml @ 5 MG/HR 5 mls/hr IV .Q24H [facility] Rx#:[id number] Insulin Regular 100 unit 5.353 60.835 24.661 In Sodium Chloride 0.9% 100 ml @ Per Protocol IV .Q0M [facility] Rx#:[id number] Magnesium Sulfate-D5w Pmx 200 1 gm In Dextrose/Water 1 100ml.bag @ 100 mls/hr IVPB Q1H [facility] Rx#: [id number] Nitroglycerin-D5w Pmx 50 1.85 mg In Dextrose/Water 1 250ml.bag @ 5 MCG/MIN 1.5 mls/hr IV .Q24H [facility] Rx#: [id number] Sodium Chloride 0.9% 1, 200 000 ml In Empty Bag 1 bag @ 1 ML/KG/HR 116.5 mls/ hr IV .Q8H36M [facility] Rx#: [id number] ceFAZolin 2 gm In Sodium 50 Chloride 0.9% 50 ml @ 100 mls/hr IVPB ONCE ONE Rx# :[id number] ceFAZolin 2 gm In Sodium 50 50 Chloride 0.9% 50 ml @ 100 mls/hr IVPB Q8H [facility] Rx#: [id number] propofoL 1,000 mg In 8.872 32.355 Empty Bag 1 bag @ Titrate IV .Q0M [facility] Rx#: [id number] Oral 240 Output: Chest Tube Drainage 120 363 110 Mediastinal/Left Pleural 120 363 110 Urine 1165 1155 395 Estimated Blood Loss 1200 Other: Voiding Method Indwelling Catheter Indwelling Catheter Indwelling Catheter ABP, PAP, CO, CI - Last Documented Arterial Blood Pressure 141/59 Pulmonary Artery Pressure 40/18 Cardiac Output 5.1 Cardiac Index 2.3 - Exam CONSTITUTIONAL: Sitting up to the bedside chair in the intensive care unit, appe ars comfortable, cooperative, no apparent acute distress. HEENT: Neck is supple, no JVD, no lymphadenopathy. Right IJ Cordis and [place]- My catheter in place and functioning. RESPIRATORY: Lungs sounds essentially clear throughout, diminished to his bilateral bases. Respirations are symmetrical and nonlabored. Currently on 4 L nasal cannula with oxygen saturations 97%. Able to achieve 750 -1000 mL on incentive spirometry. Strong cough. CARDIOVASCULAR: Regular rhythm and rate. S1 and S2 present, negative for S3, gallop or murmur. Sternum is stable. Palpable peripheral pulses bilaterally, +1 edema to his bilateral lower extremities. No calf pain or tenderness noted. Heart hugger in place with patient demonstrating appropriate use. Knee-high CARLITOS hose and sequential compression devices in place to his bilateral lower extremities. Bedside telemetry showing third-degree heart block, heart rate 70 bpm. GASTROINTESTINAL: Abdomen soft, nontender, nondistended. Hypoactive bowel so unds present 4 quadrants. Tolerating diet. Passing flatus. No guarding or rigidity. GENITOURINARY: Rondon present draining clear, yellow urine. Urine output 1045 mL in the last 8 hours. INTEGUMENTARY: Skin is warm and dry with no evidence of clubbing or cyanosis. Midline sternal incision clean dry and well approximated, covered with dry intact dressing. Left lower extremity EVH site well approximated without redness or drainage. Left arm radial artery harvest sites clean, dry and approx imated. No drainage or redness is present. NEUROLOGIC: Cranial nerves II through XII intact. No focal deficits. MUSKULOSKELETAL: Able to move all extremities, strength equal bilaterally, generalized weakness. PSYCHIATRIC: Alert and oriented to person place and time, appropriate affect, intact judgment and insight. INVASIVE LINES AND TUBES: Mediastinal/left pleural chest tubes present and con nected to low continuous wall suction, no air leaks present. Mediastinal tube with 290 mL of thin serosanguineous drainage overnight, 500 mL output in the last 24 hours. Atrial and ventricular epicardial pacemaker wires present, connected to generator, DDD heart rate 80. Right internal jugular [place]/Cordis, right radial arterial line present. Last CO 6.0, CI 2.7, PA 32/10 and CVP 7 mmHg. - Allied health notes Allied health notes reviewed: nursing - Labs CBC & Chem 7: 03/19/22 03:00 03/19/22 03:00 Labs: Abnormal Lab Results - Last 24 Hours (Table) 03/18/22 03/18/22 03/18/22 Range/Units 07:55 07:55 07:55 WBC (3.8-10.6) k/uL RBC (3.80-5.40) m/uL Hgb (11.4-16.0) gm/dL Hct (34.0-46.0) % Plt Count 126 L (150-450) k/uL Neutrophils # (1.3-7.7) k/uL Lymphocytes # (1.0-4.8) k/uL PT (9.0-12.0) sec INR (<1.2) ABG pO2 (83-108) mmHg ABG Total CO2 (19-24) mmol/L ABG O2 Saturation (94-97) % ABG Hematocrit (34.0-46.0) % ABG Glucose (75-99) mg/dL Hemoglobin (11.4-16.0) gm/dL Sodium (137-145) mmol/L Chloride (98-107) mmol/L Carbon Dioxide (22-30) mmol/L Glucose (74-99) mg/dL POC Glucose (mg/dL) (70-110) mg/dL Hemoglobin A1c 6.2 H (0.0-6.0) % Total Protein (6.3-8.2) g/dL Arterial Blood Glucose (75-99) mg/dL Crossmatch See Detail 03/18/22 03/18/22 03/18/22 Range/Units 12:17 13:31 14:27 WBC (3.8-10.6) k/uL RBC (3.80-5.40) m/uL Hgb (11.4-16.0) gm/dL Hct (34.0-46.0) % Plt Count (150-450) k/uL Neutrophils # (1.3-7.7) k/uL Lymphocytes # (1.0-4.8) k/uL PT (9.0-12.0) sec INR (<1.2) ABG pO2 255 H 164 H 171 H (83-108) mmHg ABG Total CO2 25 H 26 H (19-24) mmol/L ABG O2 Saturation 99.4 H 98.9 H 98.9 H (94-97) % ABG Hematocrit 31 L (34.0-46.0) % ABG Glucose 119 H 138 H 141 H (75-99) mg/dL Hemoglobin 11.3 L 10.2 L (11.4-16.0) gm/dL Sodium (137-145) mmol/L Chloride (98-107) mmol/L Carbon Dioxide (22-30) mmol/L Glucose (74-99) mg/dL POC Glucose (mg/dL) (70-110) mg/dL Hemoglobin A1c (0.0-6.0) % Total Protein (6.3-8.2) g/dL Arterial Blood Glucose 119 H 138 H 141 H (75-99) mg/dL Crossmatch 03/18/22 03/18/22 03/18/22 Range/Units 15:21 16:39 16:40 WBC 13.9 H (3.8-10.6) k/uL RBC 3.17 L (3.80-5.40) m/uL Hgb 10.0 L D (11.4-16.0) gm/dL Hct 29.8 L (34.0-46.0) % Plt Count 76 L (150-450) k/uL Neutrophils # 11.6 H (1.3-7.7) k/uL Lymphocytes # (1.0-4.8) k/uL PT (9.0-12.0) sec INR (<1.2) ABG pO2 120 H (83-108) mmHg ABG Total CO2 (19-24) mmol/L ABG O2 Saturation 98.2 H (94-97) % ABG Hematocrit 30 L (34.0-46.0) % ABG Glucose 139 H (75-99) mg/dL Hemoglobin 9.7 L (11.4-16.0) gm/dL Sodium (137-145) mmol/L Chloride (98-107) mmol/L Carbon Dioxide (22-30) mmol/L Glucose (74-99) mg/dL POC Glucose (mg/dL) 158 H (70-110) mg/dL Hemoglobin A1c (0.0-6.0) % Total Protein (6.3-8.2) g/dL Arterial Blood Glucose 139 H (75-99) mg/dL Crossmatch 03/18/22 03/18/22 03/18/22 Range/Units 16:40 16:40 16:55 WBC (3.8-10.6) k/uL RBC (3.80-5.40) m/uL Hgb (11.4-16.0) gm/dL Hct (34.0-46.0) % Plt Count (150-450) k/uL Neutrophils # (1.3-7.7) k/uL Lymphocytes # (1.0-4.8) k/uL PT 12.3 H (9.0-12.0) sec INR 1.2 H (<1.2) ABG pO2 311 H (83-108) mmHg ABG Total CO2 (19-24) mmol/L ABG O2 Saturation 100.0 H (94-97) % ABG Hematocrit (34.0-46.0) % ABG Glucose (75-99) mg/dL Hemoglobin (11.4-16.0) gm/dL Sodium (137-145) mmol/L Chloride 112 H (98-107) mmol/L Carbon Dioxide 20 L (22-30) mmol/L Glucose 142 H (74-99) mg/dL POC Glucose (mg/dL) (70-110) mg/dL Hemoglobin A1c (0.0-6.0) % Total Protein 5.4 L (6.3-8.2) g/dL Arterial Blood Glucose (75-99) mg/dL Crossmatch 03/18/22 03/18/22 03/18/22 Range/Units 17:10 17:58 18:50 WBC (3.8-10.6) k/uL RBC (3.80-5.40) m/uL Hgb (11.4-16.0) gm/dL Hct (34.0-46.0) % Plt Count (150-450) k/uL Neutrophils # (1.3-7.7) k/uL Lymphocytes # (1.0-4.8) k/uL PT (9.0-12.0) sec INR (<1.2) ABG pO2 (83-108) mmHg ABG Total CO2 (19-24) mmol/L ABG O2 Saturation (94-97) % ABG Hematocrit (34.0-46.0) % ABG Glucose (75-99) mg/dL Hemoglobin (11.4-16.0) gm/dL Sodium (137-145) mmol/L Chloride (98-107) mmol/L Carbon Dioxide (22-30) mmol/L Glucose (74-99) mg/dL POC Glucose (mg/dL) 154 H 178 H 177 H (70-110) mg/dL Hemoglobin A1c (0.0-6.0) % Total Protein (6.3-8.2) g/dL Arterial Blood Glucose (75-99) mg/dL Crossmatch 03/18/22 03/18/22 03/18/22 Range/Units 18:50 20:06 20:48 WBC 17.8 H (3.8-10.6) k/uL RBC 3.43 L (3.80-5.40) m/uL Hgb 10.7 L (11.4-16.0) gm/dL Hct 32.5 L (34.0-46.0) % Plt Count 106 L (150-450) k/uL Neutrophils # 15.7 H (1.3-7.7) k/uL Lymphocytes # (1.0-4.8) k/uL PT (9.0-12.0) sec INR (<1.2) ABG pO2 (83-108) mmHg ABG Total CO2 (19-24) mmol/L ABG O2 Saturation (94-97) % ABG Hematocrit (34.0-46.0) % ABG Glucose (75-99) mg/dL Hemoglobin (11.4-16.0) gm/dL Sodium (137-145) mmol/L Chloride (98-107) mmol/L Carbon Dioxide (22-30) mmol/L Glucose (74-99) mg/dL POC Glucose (mg/dL) 169 H 162 H (70-110) mg/dL Hemoglobin A1c (0.0-6.0) % Total Protein (6.3-8.2) g/dL Arterial Blood Glucose (75-99) mg/dL Crossmatch 03/18/22 03/18/22 03/18/22 Range/Units 21:04 21:30 22:13 WBC 15.4 H (3.8-10.6) k/uL RBC 3.27 L (3.80-5.40) m/uL Hgb 10.5 L (11.4-16.0) gm/dL Hct 30.8 L (34.0-46.0) % Plt Count 85 L (150-450) k/uL Neutrophils # 13.7 H (1.3-7.7) k/uL Lymphocytes # 0.9 L (1.0-4.8) k/uL PT (9.0-12.0) sec INR (<1.2) ABG pO2 (83-108) mmHg ABG Total CO2 (19-24) mmol/L ABG O2 Saturation 97.2 H (94-97) % ABG Hematocrit (34.0-46.0) % ABG Glucose (75-99) mg/dL Hemoglobin (11.4-16.0) gm/dL Sodium (137-145) mmol/L Chloride (98-107) mmol/L Carbon Dioxide (22-30) mmol/L Glucose (74-99) mg/dL POC Glucose (mg/dL) 160 H (70-110) mg/dL Hemoglobin A1c (0.0-6.0) % Total Protein (6.3-8.2) g/dL Arterial Blood Glucose (75-99) mg/dL Crossmatch 03/18/22 03/19/22 03/19/22 Range/Units 23:01 00:09 00:58 WBC (3.8-10.6) k/uL RBC (3.80-5.40) m/uL Hgb (11.4-16.0) gm/dL Hct (34.0-46.0) % Plt Count (150-450) k/uL Neutrophils # (1.3-7.7) k/uL Lymphocytes # (1.0-4.8) k/uL PT (9.0-12.0) sec INR (<1.2) ABG pO2 (83-108) mmHg ABG Total CO2 (19-24) mmol/L ABG O2 Saturation (94-97) % ABG Hematocrit (34.0-46.0) % ABG Glucose (75-99) mg/dL Hemoglobin (11.4-16.0) gm/dL Sodium (137-145) mmol/L Chloride (98-107) mmol/L Carbon Dioxide (22-30) mmol/L Glucose (74-99) mg/dL POC Glucose (mg/dL) 144 H 139 H 120 H (70-110) mg/dL Hemoglobin A1c (0.0-6.0) % Total Protein (6.3-8.2) g/dL Arterial Blood Glucose (75-99) mg/dL Crossmatch 03/19/22 03/19/22 03/19/22 Range/Units 03:00 03:00 03:02 WBC 13.9 H (3.8-10.6) k/uL RBC 3.32 L (3.80-5.40) m/uL Hgb 10.4 L (11.4-16.0) gm/dL Hct 30.9 L (34.0-46.0) % Plt Count 90 L (150-450) k/uL Neutrophils # 12.3 H (1.3-7.7) k/uL Lymphocytes # 0.9 L (1.0-4.8) k/uL PT (9.0-12.0) sec INR (<1.2) ABG pO2 (83-108) mmHg ABG Total CO2 (19-24) mmol/L ABG O2 Saturation (94-97) % ABG Hematocrit (34.0-46.0) % ABG Glucose (75-99) mg/dL Hemoglobin (11.4-16.0) gm/dL Sodium 135 L (137-145) mmol/L Chloride (98-107) mmol/L Carbon Dioxide 21 L (22-30) mmol/L Glucose 120 H (74-99) mg/dL POC Glucose (mg/dL) 125 H (70-110) mg/dL Hemoglobin A1c (0.0-6.0) % Total Protein 5.6 L (6.3-8.2) g/dL Arterial Blood Glucose (75-99) mg/dL Crossmatch 03/19/22 03/19/22 03/19/22 Range/Units 04:00 05:11 06:08 WBC (3.8-10.6) k/uL RBC (3.80-5.40) m/uL Hgb (11.4-16.0) gm/dL Hct (34.0-46.0) % Plt Count (150-450) k/uL Neutrophils # (1.3-7.7) k/uL Lymphocytes # (1.0-4.8) k/uL PT (9.0-12.0) sec INR (<1.2) ABG pO2 (83-108) mmHg ABG Total CO2 (19-24) mmol/L ABG O2 Saturation (94-97) % ABG Hematocrit (34.0-46.0) % ABG Glucose (75-99) mg/dL Hemoglobin (11.4-16.0) gm/dL Sodium (137-145) mmol/L Chloride (98-107) mmol/L Carbon Dioxide (22-30) mmol/L Glucose (74-99) mg/dL POC Glucose (mg/dL) 126 H 114 H 130 H (70-110) mg/dL Hemoglobin A1c (0.0-6.0) % Total Protein (6.3-8.2) g/dL Arterial Blood Glucose (75-99) mg/dL Crossmatch 03/19/22 03/19/22 03/19/22 Range/Units 07:00 09:46 11:06 WBC (3.8-10.6) k/uL RBC (3.80-5.40) m/uL Hgb (11.4-16.0) gm/dL Hct (34.0-46.0) % Plt Count (150-450) k/uL Neutrophils # (1.3-7.7) k/uL Lymphocytes # (1.0-4.8) k/uL PT (9.0-12.0) sec INR (<1.2) ABG pO2 (83-108) mmHg ABG Total CO2 (19-24) mmol/L ABG O2 Saturation (94-97) % ABG Hematocrit (34.0-46.0) % ABG Glucose (75-99) mg/dL Hemoglobin (11.4-16.0) gm/dL Sodium (137-145) mmol/L Chloride (98-107) mmol/L Carbon Dioxide (22-30) mmol/L Glucose (74-99) mg/dL POC Glucose (mg/dL) 124 H 139 H 139 H (70-110) mg/dL Hemoglobin A1c (0.0-6.0) % Total Protein (6.3-8.2) g/dL Arterial Blood Glucose (75-99) mg/dL Crossmatch 03/19/22 Range/Units 12:04 WBC (3.8-10.6) k/uL RBC (3.80-5.40) m/uL Hgb (11.4-16.0) gm/dL Hct (34.0-46.0) % Plt Count (150-450) k/uL Neutrophils # (1.3-7.7) k/uL Lymphocytes # (1.0-4.8) k/uL PT (9.0-12.0) sec INR (<1.2) ABG pO2 (83-108) mmHg ABG Total CO2 (19-24) mmol/L ABG O2 Saturation (94-97) % ABG Hematocrit (34.0-46.0) % ABG Glucose (75-99) mg/dL Hemoglobin (11.4-16.0) gm/dL Sodium (137-145) mmol/L Chloride (98-107) mmol/L Carbon Dioxide (22-30) mmol/L Glucose (74-99) mg/dL POC Glucose (mg/dL) 121 H (70-110) mg/dL Hemoglobin A1c (0.0-6.0) % Total Protein (6.3-8.2) g/dL Arterial Blood Glucose (75-99) mg/dL Crossmatch Microbiology - Last 24 Hours (Table) 03/18/22 09:00 Nasal Screen MRSA/MSSA - Preliminary Nasopharyngeal Swab - Imaging and Cardiology Chest x-ray: report reviewed, image reviewed Assessment and Plan Assessment: 1. Coronary artery disease, status post three-vessel CABG 03/18/2022 2. Unstable angina 3. Paroxysmal atrial fibrillation, status post modified Jha maze with bilateral pulmonary vein isolation and exclusion of the left atrial appendage 4. History of coronary artery disease status post PCI to the right coronary artery in 2013 5. History of myocardial infarction in 2013 6. History of hypertension 7. History of hyperlipidemia, treated, cholesterol 155, LDL 84.6 8. Obstructive sleep apnea, with home CPAP use 9. Morbid obesity with BMI of 41.0 kg/m 10. Remote history of pneumonia 11. Borderline diabetic with a preoperative hemoglobin A1c 6.2% 12. Family history of premature coronary artery disease with her father having multiple myocardial infarctions before the age of 60 13. Lifetime nonsmoker 14. Third-degree heart block, currently paced on DDD of 80 bpm 15. Postoperative acute blood loss anemia, expected given hemodilution Plan: 1. Continue aspirin, statin, and Plavix. Will hold beta sherry at this time due to the third-degree heart block. Will start beta sherry when able. 2. Amlodipine 5 mg by mouth daily at noon for radial artery spasm prophylaxis. Discontinue nitroglycerin drip. 3. Wean O2 as tolerated. Encourage incentive spirometry use 10 times every hour while awake. Bronchodilators per pulmonology. 4. Increase activity, ambulate as tolerated. PT/OT/cardiac rehab consulted. 5. Will monitor daily labs and chest x-rays. Electrolyte replacement per protocol. 6. GI/DVT prophylaxis. 7. Pain control with current medication regimen. 8. Insulin management per internal medicine. Patient needs tight blood sugar control to prevent infection and promote healing. She is a borderline diabetic with a preoperative hemoglobin A1c of 6.2%. 9. Continue right IJ cordis with [place]-My catheter for hemodynamic monitoring. 10. Continue chest tubes for another 24 hours. 11. Continue Rondon catheter for another 24 hours for strict accurate intake and output. Daily weights. 12. Discontinue dopamine drip and amiodarone drip. 13. Place atrial and ventricular epicardial pacemaker wires to the pacemaker generator on DDD mode of 80. 14. More recommendations to follow based on patient's clinical course. Time with Patient: Greater than 30
[2022-03-19 13:41] LABS: Glucose,Whole Blood 132 mg/dL (70-110)
[2022-03-19] MEDS: LACTATED RINGERS 1,000 ML IV SCH (13:56)
[2022-03-19] MEDS: amLODIPine 5 MG TAB PO SCH (13:56)
[2022-03-19 15:06] LABS: Glucose,Whole Blood 130 mg/dL (70-110)
--- NOTE | 2022-03-19 15:09 | P.PN ---
Subjective Progress Note Date: 03/19/22 On 03/19/2022, the patient is postop day #1. The patient was seen yesterday in intensive care unit postoperatively and the patient had a relatively uneventful postoperative course. The patient is post 3 vessel bypass surgery. The patient was weaned off the mechanical ventilator and the patient was extubated without any major difficulties. Immediately after she arrived from the operating room, the patient has issues with low cardiac output. The patient was placed on dopamine at 5 mcg/kg/m. Accordingly, the cardiac output improved and the patient was able to wean off the mechanical ventilator without any major difficulties. The patient also was on Catapres which were discontinued. Subsequently, the patient was extubated and she is currently on oxygen at 5 L per minute nasal cannula. She is using the incentive spirometer and she is pulling approximately 8000. Chest tubes are still in place. The mediastinal chest tubes and the left pleural chest tubes have also collectively produced 290 mL over the past 8 hours of 500 mL over the past 24 hours. The chest x-ray showing some atelectatic change in lung bases and postop surgical changes. The current cardiac output is at 4.6 with an index of 2.1. The patient is going to atrial fibrillation. The patient was given amiodarone bolus and started on loading for maintenance. She is still in atrial fibrillation. She is trying to convert on and off into sinus rhythm. She is on an insulin drip at 5.5 units an hour. The WBC count at 17.0 with a hemoglobin of 10.4 and a platelet count of 90. BUN is a 50 with a creatinine of 0.6 and a bicarb of 21 with a sodium level of 135. The patient is awake and alert. No specific complaints otherwise for now. Dopamine is weaned down to 3 mcg/kg/m. Urine operas adequate for now. Objective - Vital Signs Vital signs: Vital Signs Temp 99.9 F H 03/19/22 12:00 Pulse 79 03/19/22 14:00 Resp 17 03/19/22 14:00 BP 136/69 03/19/22 01:00 Pulse Ox 99 03/19/22 14:00 FiO2 50 03/18/22 20:27 Intake & Output 03/18/22 03/19/22 03/19/22 18:59 06:59 18:59 Intake Total 5567.450 0568.488 1463.173 Output Total 2485 1518 1515 Balance -1463.091 276.488 -51.827 Weight 118.3 kg 118.7 kg Intake: IV 803 1049 372 ACETAMINOPHEN IV (For NPO 100 100 ) 1,000 mg In Empty Bag 1 bag @ 400 mls/hr IVPB Q6HR [facility] Rx#:[id number] CO/CI 100 200 80 Lactated Ringers 1,000 ml 200 550 220 @ 20 mls/hr IV .Q24H [facility] Rx#:[id number] Potassium Chloride 10 meq 100 100 In Water For Injection 1 100ml.bag @ 100 mls/hr IVPB Q1H [facility] Rx#: [id number] Pressure bags 99 72 Sodium Chloride 0.9% 1, 150 000 ml In Empty Bag 1 bag @ 1 ML/KG/HR 116.5 mls/ hr IV .Q8H36M [facility] Rx#: [id number] Intake, IV Titration 218.909 745.488 851.173 Amount Albumin Human 5% 250 ml @ 500 0 mls/hr IVPB .[facility] Rx#:[id number] Albumin Human 5% 250 ml 250 In Empty Bag 1 bag @ 250 mls/hr IVPB Q1HR PRN Rx#: [id number] Amiodarone 450 mg In 269.316 Dextrose 5% in Water 250 ml @ 0.5 MG/MIN 16.667 mls/hr IV .Q15H PRN Rx#: [id number] Clevidipine Butyrate 25 2.834 22.133 mg In Empty Bag 1 bag @ 1 MG/HR 2 mls/hr IV .Q24H [facility] Rx#:[id number] DOPamine DRIP 800 mg In 46.582 Dextrose/Water 1 250ml. bag @ 5 MCG/KG/MIN 11.091 mls/hr IV .[id number] [facility] Rx#:[id number] Dexmedetomidine/0.9% NaCl 22.083 (Pmx) 400 mcg In Empty Bag 1 bag @ Titrate IV . Q0M [facility] Rx#:[id number] Diltiazem 125 mg In 11.5 Sodium Chloride 0.9% 100 ml @ 5 MG/HR 5 mls/hr IV .Q24H [facility] Rx#:[id number] Insulin Regular 100 unit 5.353 60.835 31.857 In Sodium Chloride 0.9% 100 ml @ Per Protocol IV .Q0M COUNTS INCLUDE 234 BEDS AT THE [facility] Rx#:[id number] Magnesium Sulfate-D5w Pmx 200 1 gm In Dextrose/Water 1 100ml.bag @ 100 mls/hr IVPB Q1H [facility] Rx#: [id number] Nitroglycerin-D5w Pmx 50 1.85 mg In Dextrose/Water 1 250ml.bag @ 5 MCG/MIN 1.5 mls/hr IV .Q24H [facility] Rx#: [id number] Sodium Chloride 0.9% 1, 200 000 ml In Empty Bag 1 bag @ 1 ML/KG/HR 116.5 mls/ hr IV .Q8H36M COUNTS INCLUDE 234 BEDS AT THE [facility] Rx#: [id number] ceFAZolin 2 gm In Sodium 50 Chloride 0.9% 50 ml @ 100 mls/hr IVPB ONCE ONE Rx# :[id number] ceFAZolin 2 gm In Sodium 50 50 Chloride 0.9% 50 ml @ 100 mls/hr IVPB Q8H COUNTS INCLUDE 234 BEDS AT THE [facility] Rx#: [id number] propofoL 1,000 mg In 8.872 32.355 Empty Bag 1 bag @ Titrate IV .Q0M COUNTS INCLUDE 234 BEDS AT THE [facility] Rx#: [id number] Oral 240 Output: Chest Tube Drainage 120 363 170 Mediastinal/Left Pleural 120 363 170 Urine 1165 1155 1345 Estimated Blood Loss 1200 Other: Voiding Method Indwelling Catheter Indwelling Catheter Indwelling Catheter ABP, PAP, CO, CI - Last Documented Arterial Blood Pressure 130/53 Pulmonary Artery Pressure 24/13 Cardiac Output 4.3 Cardiac Index 1.9 - Exam CONSTITUTIONAL: Sitting up to the bedside chair in the intensive care unit, appears comfortable, cooperative, no apparent acute distress. HEENT: Neck is supple, no JVD, no lymphadenopathy. Right IJ Cordis and Hubbard- My catheter in place and functioning. RESPIRATORY: Lungs sounds essentially clear throughout, diminished to his bilateral bases. Respirations are symmetrical and nonlabored. Currently on 4 L nasal cannula with oxygen saturations 97%. Able to achieve 750 -1000 mL on incentive spirometry. Strong cough. CARDIOVASCULAR: Regular rhythm and rate. S1 and S2 present, negative for S3, gallop or murmur. Sternum is stable. Palpable peripheral pulses bilaterally, +1 edema to his bilateral lower extremities. No calf pain or tenderness noted. Heart hugger in place with patient demonstrating appropriate use. Knee-high CARLITOS hose and sequential compression devices in place to his bilateral lower extremities. Bedside telemetry showing third-degree heart block, heart rate 70 bpm. GASTROINTESTINAL: Abdomen soft, nontender, nondistended. Hypoactive bowel sounds present 4 quadrants. Tolerating diet. Passing flatus. No guarding or rigidity. GENITOURINARY: Rondon present draining clear, yellow urine. Urine output 1045 mL in the last 8 hours. INTEGUMENTARY: Skin is warm and dry with no evidence of clubbing or cyanosis. Midline sternal incision clean dry and well approximated, covered with dry intact dressing. Left lower extremity EVH site well approximated without redness or drainage. Left arm radial artery harvest sites clean, dry and approximated. No drainage or redness is present. NEUROLOGIC: Cranial nerves II through XII intact. No focal deficits. MUSKULOSKELETAL: Able to move all extremities, strength equal bilaterally, generalized weakness. PSYCHIATRIC: Alert and oriented to person place and time, appropriate affect, intact judgment and insight. INVASIVE LINES AND TUBES: Mediastinal/left pleural chest tubes present and connected to low continuous wall suction, no air leaks present. Mediastinal tube with 290 mL of thin serosanguineous drainage overnight, 500 mL output in the last 24 hours. Atrial and ventricular epicardial pacemaker wires present, connected to generator, DDD heart rate 80. Right internal jugular Hubbard/Cordis, right radial arterial line present. Last CO 6.0, CI 2.7, PA 32/10 and CVP 7 mmHg. - Labs CBC & Chem 7: 03/19/22 03:00 03/19/22 03:00 Labs: Abnormal Lab Results - Last 24 Hours (Table) 03/18/22 03/18/22 03/18/22 Range/Units 07:55 07:55 12:17 WBC (3.8-10.6) k/uL RBC (3.80-5.40) m/uL Hgb (11.4-16.0) gm/dL Hct (34.0-46.0) % Plt Count (150-450) k/uL Neutrophils # (1.3-7.7) k/uL Lymphocytes # (1.0-4.8) k/uL PT (9.0-12.0) sec INR (<1.2) ABG pO2 255 H (83-108) mmHg ABG Total CO2 25 H (19-24) mmol/L ABG O2 Saturation 99.4 H (94-97) % ABG Hematocrit (34.0-46.0) % ABG Glucose 119 H (75-99) mg/dL Hemoglobin 11.3 L (11.4-16.0) gm/dL Sodium (137-145) mmol/L Chloride (98-107) mmol/L Carbon Dioxide (22-30) mmol/L Glucose (74-99) mg/dL POC Glucose (mg/dL) (70-110) mg/dL Hemoglobin A1c 6.2 H (0.0-6.0) % Total Protein (6.3-8.2) g/dL Arterial Blood Glucose 119 H (75-99) mg/dL Crossmatch See Detail 03/18/22 03/18/22 03/18/22 Range/Units 13:31 14:27 15:21 WBC (3.8-10.6) k/uL RBC (3.80-5.40) m/uL Hgb (11.4-16.0) gm/dL Hct (34.0-46.0) % Plt Count (150-450) k/uL Neutrophils # (1.3-7.7) k/uL Lymphocytes # (1.0-4.8) k/uL PT (9.0-12.0) sec INR (<1.2) ABG pO2 164 H 171 H 120 H (83-108) mmHg ABG Total CO2 26 H (19-24) mmol/L ABG O2 Saturation 98.9 H 98.9 H 98.2 H (94-97) % ABG Hematocrit 31 L 30 L (34.0-46.0) % ABG Glucose 138 H 141 H 139 H (75-99) mg/dL Hemoglobin 10.2 L 9.7 L (11.4-16.0) gm/dL Sodium (137-145) mmol/L Chloride (98-107) mmol/L Carbon Dioxide (22-30) mmol/L Glucose (74-99) mg/dL POC Glucose (mg/dL) (70-110) mg/dL Hemoglobin A1c (0.0-6.0) % Total Protein (6.3-8.2) g/dL Arterial Blood Glucose 138 H 141 H 139 H (75-99) mg/dL Crossmatch 03/18/22 03/18/22 03/18/22 Range/Units 16:39 16:40 16:40 WBC 13.9 H (3.8-10.6) k/uL RBC 3.17 L (3.80-5.40) m/uL Hgb 10.0 L D (11.4-16.0) gm/dL Hct 29.8 L (34.0-46.0) % Plt Count 76 L (150-450) k/uL Neutrophils # 11.6 H (1.3-7.7) k/uL Lymphocytes # (1.0-4.8) k/uL PT 12.3 H (9.0-12.0) sec INR 1.2 H (<1.2) ABG pO2 (83-108) mmHg ABG Total CO2 (19-24) mmol/L ABG O2 Saturation (94-97) % ABG Hematocrit (34.0-46.0) % ABG Glucose (75-99) mg/dL Hemoglobin (11.4-16.0) gm/dL Sodium (137-145) mmol/L Chloride (98-107) mmol/L Carbon Dioxide (22-30) mmol/L Glucose (74-99) mg/dL POC Glucose (mg/dL) 158 H (70-110) mg/dL Hemoglobin A1c (0.0-6.0) % Total Protein (6.3-8.2) g/dL Arterial Blood Glucose (75-99) mg/dL Crossmatch 03/18/22 03/18/22 03/18/22 Range/Units 16:40 16:55 17:10 WBC (3.8-10.6) k/uL RBC (3.80-5.40) m/uL Hgb (11.4-16.0) gm/dL Hct (34.0-46.0) % Plt Count (150-450) k/uL Neutrophils # (1.3-7.7) k/uL Lymphocytes # (1.0-4.8) k/uL PT (9.0-12.0) sec INR (<1.2) ABG pO2 311 H (83-108) mmHg ABG Total CO2 (19-24) mmol/L ABG O2 Saturation 100.0 H (94-97) % ABG Hematocrit (34.0-46.0) % ABG Glucose (75-99) mg/dL Hemoglobin (11.4-16.0) gm/dL Sodium (137-145) mmol/L Chloride 112 H (98-107) mmol/L Carbon Dioxide 20 L (22-30) mmol/L Glucose 142 H (74-99) mg/dL POC Glucose (mg/dL) 154 H (70-110) mg/dL Hemoglobin A1c (0.0-6.0) % Total Protein 5.4 L (6.3-8.2) g/dL Arterial Blood Glucose (75-99) mg/dL Crossmatch 03/18/22 03/18/22 03/18/22 Range/Units 17:58 18:50 18:50 WBC 17.8 H (3.8-10.6) k/uL RBC 3.43 L (3.80-5.40) m/uL Hgb 10.7 L (11.4-16.0) gm/dL Hct 32.5 L (34.0-46.0) % Plt Count 106 L (150-450) k/uL Neutrophils # 15.7 H (1.3-7.7) k/uL Lymphocytes # (1.0-4.8) k/uL PT (9.0-12.0) sec INR (<1.2) ABG pO2 (83-108) mmHg ABG Total CO2 (19-24) mmol/L ABG O2 Saturation (94-97) % ABG Hematocrit (34.0-46.0) % ABG Glucose (75-99) mg/dL Hemoglobin (11.4-16.0) gm/dL Sodium (137-145) mmol/L Chloride (98-107) mmol/L Carbon Dioxide (22-30) mmol/L Glucose (74-99) mg/dL POC Glucose (mg/dL) 178 H 177 H (70-110) mg/dL Hemoglobin A1c (0.0-6.0) % Total Protein (6.3-8.2) g/dL Arterial Blood Glucose (75-99) mg/dL Crossmatch 03/18/22 03/18/22 03/18/22 Range/Units 20:06 20:48 21:04 WBC (3.8-10.6) k/uL RBC (3.80-5.40) m/uL Hgb (11.4-16.0) gm/dL Hct (34.0-46.0) % Plt Count (150-450) k/uL Neutrophils # (1.3-7.7) k/uL Lymphocytes # (1.0-4.8) k/uL PT (9.0-12.0) sec INR (<1.2) ABG pO2 (83-108) mmHg ABG Total CO2 (19-24) mmol/L ABG O2 Saturation 97.2 H (94-97) % ABG Hematocrit (34.0-46.0) % ABG Glucose (75-99) mg/dL Hemoglobin (11.4-16.0) gm/dL Sodium (137-145) mmol/L Chloride (98-107) mmol/L Carbon Dioxide (22-30) mmol/L Glucose (74-99) mg/dL POC Glucose (mg/dL) 169 H 162 H (70-110) mg/dL Hemoglobin A1c (0.0-6.0) % Total Protein (6.3-8.2) g/dL Arterial Blood Glucose (75-99) mg/dL Crossmatch 03/18/22 03/18/22 03/18/22 Range/Units 21:30 22:13 23:01 WBC 15.4 H (3.8-10.6) k/uL RBC 3.27 L (3.80-5.40) m/uL Hgb 10.5 L (11.4-16.0) gm/dL Hct 30.8 L (34.0-46.0) % Plt Count 85 L (150-450) k/uL Neutrophils # 13.7 H (1.3-7.7) k/uL Lymphocytes # 0.9 L (1.0-4.8) k/uL PT (9.0-12.0) sec INR (<1.2) ABG pO2 (83-108) mmHg ABG Total CO2 (19-24) mmol/L ABG O2 Saturation (94-97) % ABG Hematocrit (34.0-46.0) % ABG Glucose (75-99) mg/dL Hemoglobin (11.4-16.0) gm/dL Sodium (137-145) mmol/L Chloride (98-107) mmol/L Carbon Dioxide (22-30) mmol/L Glucose (74-99) mg/dL POC Glucose (mg/dL) 160 H 144 H (70-110) mg/dL Hemoglobin A1c (0.0-6.0) % Total Protein (6.3-8.2) g/dL Arterial Blood Glucose (75-99) mg/dL Crossmatch 03/19/22 03/19/22 03/19/22 Range/Units 00:09 00:58 03:00 WBC 13.9 H (3.8-10.6) k/uL RBC 3.32 L (3.80-5.40) m/uL Hgb 10.4 L (11.4-16.0) gm/dL Hct 30.9 L (34.0-46.0) % Plt Count 90 L (150-450) k/uL Neutrophils # 12.3 H (1.3-7.7) k/uL Lymphocytes # 0.9 L (1.0-4.8) k/uL PT (9.0-12.0) sec INR (<1.2) ABG pO2 (83-108) mmHg ABG Total CO2 (19-24) mmol/L ABG O2 Saturation (94-97) % ABG Hematocrit (34.0-46.0) % ABG Glucose (75-99) mg/dL Hemoglobin (11.4-16.0) gm/dL Sodium (137-145) mmol/L Chloride (98-107) mmol/L Carbon Dioxide (22-30) mmol/L Glucose (74-99) mg/dL POC Glucose (mg/dL) 139 H 120 H (70-110) mg/dL Hemoglobin A1c (0.0-6.0) % Total Protein (6.3-8.2) g/dL Arterial Blood Glucose (75-99) mg/dL Crossmatch 03/19/22 03/19/22 03/19/22 Range/Units 03:00 03:02 04:00 WBC (3.8-10.6) k/uL RBC (3.80-5.40) m/uL Hgb (11.4-16.0) gm/dL Hct (34.0-46.0) % Plt Count (150-450) k/uL Neutrophils # (1.3-7.7) k/uL Lymphocytes # (1.0-4.8) k/uL PT (9.0-12.0) sec INR (<1.2) ABG pO2 (83-108) mmHg ABG Total CO2 (19-24) mmol/L ABG O2 Saturation (94-97) % ABG Hematocrit (34.0-46.0) % ABG Glucose (75-99) mg/dL Hemoglobin (11.4-16.0) gm/dL Sodium 135 L (137-145) mmol/L Chloride (98-107) mmol/L Carbon Dioxide 21 L (22-30) mmol/L Glucose 120 H (74-99) mg/dL POC Glucose (mg/dL) 125 H 126 H (70-110) mg/dL Hemoglobin A1c (0.0-6.0) % Total Protein 5.6 L (6.3-8.2) g/dL Arterial Blood Glucose (75-99) mg/dL Crossmatch 03/19/22 03/19/22 03/19/22 Range/Units 05:11 06:08 07:00 WBC (3.8-10.6) k/uL RBC (3.80-5.40) m/uL Hgb (11.4-16.0) gm/dL Hct (34.0-46.0) % Plt Count (150-450) k/uL Neutrophils # (1.3-7.7) k/uL Lymphocytes # (1.0-4.8) k/uL PT (9.0-12.0) sec INR (<1.2) ABG pO2 (83-108) mmHg ABG Total CO2 (19-24) mmol/L ABG O2 Saturation (94-97) % ABG Hematocrit (34.0-46.0) % ABG Glucose (75-99) mg/dL Hemoglobin (11.4-16.0) gm/dL Sodium (137-145) mmol/L Chloride (98-107) mmol/L Carbon Dioxide (22-30) mmol/L Glucose (74-99) mg/dL POC Glucose (mg/dL) 114 H 130 H 124 H (70-110) mg/dL Hemoglobin A1c (0.0-6.0) % Total Protein (6.3-8.2) g/dL Arterial Blood Glucose (75-99) mg/dL Crossmatch 03/19/22 03/19/22 03/19/22 Range/Units 09:46 11:06 12:04 WBC (3.8-10.6) k/uL RBC (3.80-5.40) m/uL Hgb (11.4-16.0) gm/dL Hct (34.0-46.0) % Plt Count (150-450) k/uL Neutrophils # (1.3-7.7) k/uL Lymphocytes # (1.0-4.8) k/uL PT (9.0-12.0) sec INR (<1.2) ABG pO2 (83-108) mmHg ABG Total CO2 (19-24) mmol/L ABG O2 Saturation (94-97) % ABG Hematocrit (34.0-46.0) % ABG Glucose (75-99) mg/dL Hemoglobin (11.4-16.0) gm/dL Sodium (137-145) mmol/L Chloride (98-107) mmol/L Carbon Dioxide (22-30) mmol/L Glucose (74-99) mg/dL POC Glucose (mg/dL) 139 H 139 H 121 H (70-110) mg/dL Hemoglobin A1c (0.0-6.0) % Total Protein (6.3-8.2) g/dL Arterial Blood Glucose (75-99) mg/dL Crossmatch 03/19/22 Range/Units 13:29 WBC (3.8-10.6) k/uL RBC (3.80-5.40) m/uL Hgb (11.4-16.0) gm/dL Hct (34.0-46.0) % Plt Count (150-450) k/uL Neutrophils # (1.3-7.7) k/uL Lymphocytes # (1.0-4.8) k/uL PT (9.0-12.0) sec INR (<1.2) ABG pO2 (83-108) mmHg ABG Total CO2 (19-24) mmol/L ABG O2 Saturation (94-97) % ABG Hematocrit (34.0-46.0) % ABG Glucose (75-99) mg/dL Hemoglobin (11.4-16.0) gm/dL Sodium (137-145) mmol/L Chloride (98-107) mmol/L Carbon Dioxide (22-30) mmol/L Glucose (74-99) mg/dL POC Glucose (mg/dL) 132 H (70-110) mg/dL Hemoglobin A1c (0.0-6.0) % Total Protein (6.3-8.2) g/dL Arterial Blood Glucose (75-99) mg/dL Crossmatch Microbiology - Last 24 Hours (Table) 03/18/22 09:00 Nasal Screen MRSA/MSSA - Preliminary Nasopharyngeal Swab Assessment and Plan Assessment: Unstable angina in a patient found to have significant left main disease and had undergone coronary artery bypass grafting 3 without RUBIN to the LAD, left radial artery to the OM, saphenous vein graft to the PDA. Postoperative day #1. The patient underwent event vessel bypass surgery. Postop, the patient developed a low cardiac output and the patient was started on dopamine and her current hemodynamic parameters are stable and the patient is still on dopamine at 3 mcg/kg/m. Acute hypoxemic respiratory failure, expected outcome of surgery, currently on weaned off the mechanical ventilator and the patient is extubated and the patient is currently on 3 L of oxygen by nasal cannula Episodes of atrial fibrillation and the patient is currently loaded with amiodarone History of coronary artery disease with previous PCI to the RCA in 2013 Morbid obesity Hypertension Hyperlipidemia Gastroesophageal reflux disease Anxiety Remote history of pulmonary embolism Lifelong nonsmoker Plan: Continue using the incentive spirometer Repeat chest x-ray in the morning Start the patient on a combination of aspirin and Plavix and the patient will also be gradually weaned off the dopamine Altered beta blockers for now Insulin management with a drip over the next 24 hours Patient has adequate pain control for now Keep the chest tube in place for another 24 hours The patient will be placed on a chair and ventricular epicardial pacemaker wires and the generator on a DDD mode of 80 Give the patient ICU We'll continue to follow
[2022-03-19 16:31] LABS: Glucose,Whole Blood 99 mg/dL (70-110)
[2022-03-19 18:03] LABS: Glucose,Whole Blood 154 mg/dL (70-110)
[2022-03-19 19:06] LABS: Glucose,Whole Blood 155 mg/dL (70-110)
[2022-03-19 20:02] LABS: Glucose,Whole Blood 121 mg/dL (70-110)
[2022-03-19] MEDS ORDERED: BENZOCAINE/MENTHOL LOZENG 1 EACH LOZENGE MUCOUS MEM PRN (20:08)
[2022-03-19] MEDS: SENNOSIDES-DOCUSATE SODIUM 1 EACH TAB PO SCH (20:19)
[2022-03-19] MEDS: ATORVASTATIN 40 MG TAB PO SCH (20:19)
[2022-03-19 21:05] LABS: Glucose,Whole Blood 104 mg/dL (70-110)
[2022-03-19 21:50] LABS: Glucose,Whole Blood 124 mg/dL (70-110)
[2022-03-19 22:59] LABS: Glucose,Whole Blood 114 mg/dL (70-110)
[2022-03-19 23:52] LABS: Glucose,Whole Blood 121 mg/dL (70-110)
[2022-03-20 00:59] LABS: Glucose,Whole Blood 97 mg/dL (70-110)
[2022-03-20 01:49] LABS: Glucose,Whole Blood 127 mg/dL (70-110)
[2022-03-20 03:49] LABS: Glucose,Whole Blood 137 mg/dL (70-110)
[2022-03-20] MEDS: HYDROcodone/APAP 5-325MG 1 EACH TAB PO PRN ×2 (03:52→08:35)
[2022-03-20 03:56] LABS: Basophils % (A) 0 %; Eosinophils % (A) 0 %; HCT 28.6 % (34.0-46.0); HGB 9.7 gm/dL (11.4-16.0); Lymphocytes # (A) 1.7 k/uL (1.0-4.8); Lymphocytes % (A) 14 %; MCH 31.5 pg (25.0-35.0); MCHC 33.9 g/dL (31.0-37.0); MCV 92.9 fL (80.0-100.0); Mean Platelet Volume 13.8; Monocytes # (A) 0.6 k/uL (0-1.0); Monocytes % (A) 5 %; Neutrophils # (A) 9.7 k/uL (1.3-7.7); Neutrophils % (A) 80 %; RBC 3.08 m/uL (3.80-5.40); RDW 12.5 % (11.5-15.5); WBC 12.1 k/uL (3.8-10.6)
[2022-03-20 04:01] LABS: Platelet Count 75 k/uL (150-450)
[2022-03-20 04:03] LABS: Ionized Calcium 4.9 mg/dL (4.5-5.3)
[2022-03-20 04:30] LABS: ALT 18 U/L (4-34); AST 32 U/L (14-36); African American GFR (CKD) >90 (>60 ml/min/1.73 sqM); Albumin 3.6 g/dL (3.5-5.0); Alkaline Phosphatase 54 U/L (38-126); Anion Gap 6 mmol/L; Blood Urea Nitrogen 11 mg/dL (7-17); Calcium 8.4 mg/dL (8.4-10.2); Carbon Dioxide 22 mmol/L (22-30); Chloride 107 mmol/L (98-107); Glucose 131 mg/dL (74-99); Non-African American GFR(CKD) 88 (>60 ml/min/1.73 sqM); Potassium 3.7 mmol/L (3.5-5.1); Sodium 135 mmol/L (137-145); Total Bilirubin 1.3 mg/dL (0.2-1.3); Total Protein 5.4 g/dL (6.3-8.2)
[2022-03-20 05:13] LABS: Glucose,Whole Blood 132 mg/dL (70-110)
[2022-03-20] MEDS ORDERED: POTASSIUM CHLORIDE ER 20 MEQ TAB.ER PO SCH (06:00)
[2022-03-20 06:03] LABS: Glucose,Whole Blood 115 mg/dL (70-110)
[2022-03-20 06:51] LABS: Glucose,Whole Blood 114 mg/dL (70-110)
--- NOTE | 2022-03-20 07:06 | XR ---
EXAMINATION TYPE: XR chest 1V portable DATE OF EXAM: 03/20/2022 6:25 AM COMPARISON: Chest radiographs from 2422 TECHNIQUE: XR chest 1V portable Portable AP radiograph of the chest. CLINICAL INDICATION:Female, 76 years old with history of Post Operative Cardiac Surgery; FINDINGS: Lungs/Pleura: Bibasilar atelectasis. No evidence for pneumothorax pleural effusion or focal consolida tion. Pulmonary vascularity: Unremarkable. Heart/mediastinum: Cardiomediastinal silhouette is unremarkable. Left atrial appendage occlusion ariel ce is present. Musculoskeletal: No acute osseous pathology. Other findings: None Lines/Tubes: Endotracheal tube with distal tip xx cm above the jorje Nasogastric tube with its distal tip and side-port projecting under the diaphragm. There is a [place]-My catheter with tip projecting over the spine. Left thoracotomy tube is present without evidence of pneumothorax. IMPRESSION: 1. Similar bibasilar atelectasis. 2. Stable support lines and tubes.
[2022-03-20 08:08] LABS: Glucose,Whole Blood 212 mg/dL (70-110)
[2022-03-20] MEDS: MUPIROCIN 2% OINT 22 GM TUBE NASAL SCH ×2 (08:13→21:32)
[2022-03-20] MEDS: HEPARIN SODIUM,PORCINE/PF 5,000 UNIT/0.5 ML SYRINGE SQ SCH ×2 (08:13→16:47)
[2022-03-20] MEDS: PANTOPRAZOLE 40 MG/10 ML VIAL IVP SCH (08:13)
[2022-03-20] MEDS: CLOPIDOGREL 75 MG TAB PO SCH (08:13)
[2022-03-20] MEDS: ASPIRIN 325 MG TAB PO SCH (08:13)
[2022-03-20] MEDS: IPRATROPIUM-ALBUTEROL 3 ML NEB INHALATION SCH ×4 (08:58→20:15)
[2022-03-20 09:11] LABS: Glucose,Whole Blood 153 mg/dL (70-110)
[2022-03-20] MEDS ORDERED: FUROSEMIDE 10 MG/ML 2 ML VIAL IV ONE (09:30)
[2022-03-20] MEDS ORDERED: POTASSIUM CHLORIDE ER 20 MEQ TAB.ER PO STA (09:31)
[2022-03-20] MEDS: METOPROLOL TARTRATE 12.5 MG TAB PO SCH ×2 (10:00→21:32)
[2022-03-20 10:08] LABS: Glucose,Whole Blood 133 mg/dL (70-110)
--- NOTE | 2022-03-20 10:33 | P.PN ---
Subjective Progress Note Date: 03/20/22 On 03/19/2022, the patient is postop day #1. The patient was seen yesterday in intensive care unit postoperatively and the patient had a relatively uneventful postoperative course. The patient is post 3 vessel bypass surgery. The patient was weaned off the mechanical ventilator and the patient was extubated without any major difficulties. Immediately after she arrived from the operating room, the patient has issues with low cardiac output. The patient was placed on dopamine at 5 mcg/kg/m. Accordingly, the cardiac output improved and the patient was able to wean off the mechanical ventilator without any major difficulties. The patient also was on Catapres which were discontinued. Subsequently, the patient was extubated and she is currently on oxygen at 5 L per minute nasal cannula. She is using the incentive spirometer and she is pulling approximately 8000. Chest tubes are still in place. The mediastinal chest tubes and the left pleural chest tubes have also collectively produced 290 mL over the past 8 hours of 500 mL over the past 24 hours. The chest x-ray showing some atelectatic change in lung bases and postop surgical changes. The current cardiac output is at 4.6 with an index of 2.1. The patient is going to atrial fibrillation. The patient was given amiodarone bolus and started on loading for maintenance. She is still in atrial fibrillation. She is trying to convert on and off into sinus rhythm. She is on an insulin drip at 5.5 units an hour. The WBC count at 17.0 with a hemoglobin of 10.4 and a platelet count of 90. BUN is a 50 with a creatinine of 0.6 and a bicarb of 21 with a sodium level of 135. The patient is awake and alert. No specific complaints otherwise for now. Dopamine is weaned down to 3 mcg/kg/m. Urine operas adequate for now. 03/20/2022, the patient is being seen for a follow-up. The patient is calm and comfortable and she is on oxygen at 2 L and she is using the incentive spirometer. A chest x-ray showing small right-sided and left-sided pleural effusion. Chest tubes are to be removed today. The patient went into atrial tachycardia with possibly some episodes of atrial fibrillation. The patient was given amiodarone yesterday and currently she is off amiodarone. She is taking metoprolol 12.5 mg twice a day. AV pacemaker wires are removed. She was able to bring in her CPAP and she is using the CPAP which is an APAP mode pressure minimum of 5 and a maximum of 20 and she is extremity successful and her AHI is down to 0.9 while on treatment. The patient has a white cell count of 12.1 with a hemoglobin of 9.7 and a platelet count of 75. BUN 11 his creatinine is 0.63. No other significant events overnight. She is using the incentive spirometer. She is pulling approximately thousand. Urine operas adequate. No other significant events overnight. The chest and ongoing tobacco removed today. As far as a blood sugar control, the patient's blood sugar control is adequate for now. The patient is currently on sliding scale insulin coverage and insulin drip will be discontinued Objective - Vital Signs Vital signs: Vital Signs Temp 100.2 F H 03/20/22 08:00 Pulse 82 03/20/22 10:00 Resp 22 03/20/22 10:00 BP 150/70 03/20/22 10:00 Pulse Ox 95 03/20/22 10:00 FiO2 50 03/18/22 20:27 Intake & Output 03/19/22 03/20/22 03/20/22 18:59 06:59 18:59 Intake Total 2073.397 1036.618 351.739 Output Total 2725 1150 320 Balance -651.603 -113.382 31.739 Weight 120.9 kg Intake: IV 488 457 101 CO/CI 80 80 20 Lactated Ringers 1,000 ml 300 260 60 @ 20 mls/hr IV .Q24H [facility] Rx#:[id number] Pressure bags 108 117 21 Intake, IV Titration 865.397 39.618 10.739 Amount Albumin Human 5% 250 ml @ 500 0 mls/hr IVPB .[facility] Rx#:[id number] Amiodarone 450 mg In 269.316 Dextrose 5% in Water 250 ml @ 0.5 MG/MIN 16.667 mls/hr IV .Q15H [facility]N Rx#: [id number] Insulin Regular 100 unit 46.081 39.618 10.739 In Sodium Chloride 0.9% 100 ml @ Per Protocol IV .Q0M [facility] Rx#:[id number] ceFAZolin 2 gm In Sodium 50 Chloride 0.9% 50 ml @ 100 mls/hr IVPB Q8H [facility] Rx#: [id number] Oral 720 540 240 Output: Chest Tube Drainage 280 100 80 Mediastinal/Left Pleural 280 100 80 Urine 2445 1050 240 Other: Voiding Method Indwelling Catheter Indwelling Catheter Indwelling Catheter ABP, PAP, CO, CI - Last Documented Arterial Blood Pressure 138/48 Pulmonary Artery Pressure 33/9 Cardiac Output 6.1 Cardiac Index 2.7 - Exam CONSTITUTIONAL: Sitting up to the bedside chair in the intensive care unit, appears comfortable, cooperative, no apparent acute distress. HEENT: Neck is supple, no JVD, no lymphadenopathy. Right IJ Cordis was removed RESPIRATORY: Lungs sounds essentially clear throughout, diminished to his bilateral bases. Respirations are symmetrical and nonlabored. Currently on 2 L nasal cannula with oxygen saturations 97%. Able to achieve 750 -1000 mL on incentive spirometry. Strong cough. CARDIOVASCULAR: Regular rhythm and rate. S1 and S2 present, negative for S3, gallop or murmur. Sternum is stable. Palpable peripheral pulses bilaterally, +1 edema to his bilateral lower extremities. No calf pain or tenderness noted. Heart hugger in place with patient demonstrating appropriate use. Knee-high CARLITOS hose and sequential compression devices in place to his bilateral lower extremities. Bedside telemetry showing third-degree heart block, heart rate 70 bpm. GASTROINTESTINAL: Abdomen soft, nontender, nondistended. Hypoactive bowel sounds present 4 quadrants. Tolerating diet. Passing flatus. No guarding or rigidity. GENITOURINARY: Rondon present draining clear, yellow urine. Urine output 1045 mL in the last 8 hours. INTEGUMENTARY: Skin is warm and dry with no evidence of clubbing or cyanosis. Midline sternal incision clean dry and well approximated, covered with dry intact dressing. Left lower extremity EVH site well approximated without redness or drainage. Left arm radial artery harvest sites clean, dry and approximated. No drainage or redness is present. NEUROLOGIC: Cranial nerves II through XII intact. No focal deficits. MUSKULOSKELETAL: Able to move all extremities, strength equal bilaterally, generalized weakness. PSYCHIATRIC: Alert and oriented to person place and time, appropriate affect, intact judgment and insight. INVASIVE LINES AND TUBES: Mediastinal/left pleural chest tubes present and connected to low continuous wall suction, - Labs CBC & Chem 7: 03/20/22 03:45 11/25/22 03:45 Labs: Abnormal Lab Results - Last 24 Hours (Table) 03/18/22 03/19/22 03/19/22 Range/Units 07:55 11:06 12:04 WBC (3.8-10.6) k/uL RBC (3.80-5.40) m/uL Hgb (11.4-16.0) gm/dL Hct (34.0-46.0) % Plt Count (150-450) k/uL Neutrophils # (1.3-7.7) k/uL Sodium (137-145) mmol/L Glucose (74-99) mg/dL POC Glucose (mg/dL) 139 H 121 H (70-110) mg/dL Total Protein (6.3-8.2) g/dL Crossmatch See Detail 03/19/22 03/19/22 03/19/22 Range/Units 13:29 15:03 18:00 WBC (3.8-10.6) k/uL RBC (3.80-5.40) m/uL Hgb (11.4-16.0) gm/dL Hct (34.0-46.0) % Plt Count (150-450) k/uL Neutrophils # (1.3-7.7) k/uL Sodium (137-145) mmol/L Glucose (74-99) mg/dL POC Glucose (mg/dL) 132 H 130 H 154 H (70-110) mg/dL Total Protein (6.3-8.2) g/dL Crossmatch 03/19/22 03/19/22 03/19/22 Range/Units 19:03 20:01 21:49 WBC (3.8-10.6) k/uL RBC (3.80-5.40) m/uL Hgb (11.4-16.0) gm/dL Hct (34.0-46.0) % Plt Count (150-450) k/uL Neutrophils # (1.3-7.7) k/uL Sodium (137-145) mmol/L Glucose (74-99) mg/dL POC Glucose (mg/dL) 155 H 121 H 124 H (70-110) mg/dL Total Protein (6.3-8.2) g/dL Crossmatch 03/19/22 03/19/22 03/20/22 Range/Units 22:58 23:50 01:48 WBC (3.8-10.6) k/uL RBC (3.80-5.40) m/uL Hgb (11.4-16.0) gm/dL Hct (34.0-46.0) % Plt Count (150-450) k/uL Neutrophils # (1.3-7.7) k/uL Sodium (137-145) mmol/L Glucose (74-99) mg/dL POC Glucose (mg/dL) 114 H 121 H 127 H (70-110) mg/dL Total Protein (6.3-8.2) g/dL Crossmatch 03/20/22 03/20/22 03/20/22 Range/Units 03:45 03:45 03:47 WBC 12.1 H (3.8-10.6) k/uL RBC 3.08 L (3.80-5.40) m/uL Hgb 9.7 L (11.4-16.0) gm/dL Hct 28.6 L (34.0-46.0) % Plt Count 75 L (150-450) k/uL Neutrophils # 9.7 H (1.3-7.7) k/uL Sodium 135 L (137-145) mmol/L Glucose 131 H (74-99) mg/dL POC Glucose (mg/dL) 137 H (70-110) mg/dL Total Protein 5.4 L (6.3-8.2) g/dL Crossmatch 03/20/22 03/20/22 03/20/22 Range/Units 05:12 06:02 06:50 WBC (3.8-10.6) k/uL RBC (3.80-5.40) m/uL Hgb (11.4-16.0) gm/dL Hct (34.0-46.0) % Plt Count (150-450) k/uL Neutrophils # (1.3-7.7) k/uL Sodium (137-145) mmol/L Glucose (74-99) mg/dL POC Glucose (mg/dL) 132 H 115 H 114 H (70-110) mg/dL Total Protein (6.3-8.2) g/dL Crossmatch 03/20/22 03/20/22 03/20/22 Range/Units 08:04 09:06 10:05 WBC (3.8-10.6) k/uL RBC (3.80-5.40) m/uL Hgb (11.4-16.0) gm/dL Hct (34.0-46.0) % Plt Count (150-450) k/uL Neutrophils # (1.3-7.7) k/uL Sodium (137-145) mmol/L Glucose (74-99) mg/dL POC Glucose (mg/dL) 212 H 153 H 133 H (70-110) mg/dL Total Protein (6.3-8.2) g/dL Crossmatch Microbiology - Last 24 Hours (Table) 03/18/22 09:00 Nasal Screen MRSA/MSSA - Final Nasopharyngeal Swab Assessment and Plan Assessment: Unstable angina in a patient found to have significant left main disease and had undergone coronary artery bypass grafting 3 without RUBIN to the LAD, left radial artery to the OM, saphenous vein graft to the PDA. Postoperative day #2. The patient underwent event vessel bypass surgery. Acute hypoxemic respiratory failure, expected outcome of surgery, currently on weaned off the mechanical ventilator and the patient is extubated and the patient is currently on 2 L of oxygen by nasal cannula the [place] catheter was removed. The patient would have the chest tubes removed today. Chest x-ray showing small bilateral pleural effusions. Episodes of atrial fibrillation/atrial tachycardia and the patient is currently loaded with amiodarone off amiodarone and the patient is currently on metoprolol History of coronary artery disease with previous PCI to the RCA in 2013 Morbid obesity Hypertension Hyperlipidemia Gastroesophageal reflux disease Anxiety Remote history of pulmonary embolism Lifelong nonsmoker Obstructive sleep apnea currently on APAP machine. Plan: Continue using the incentive spirometer Lasix 20 mg a push 1 Morning chest x-ray was noted [place]-My catheter has been removed Chest tubes are to be removed today Insulin drip to be discontinued Sliding-scale insulin coverage Epicardial pacemaker wires have been removed Condition is stable and will continue to follow. The patient is also using her own CPAP unit. Repeat chest x-ray in the morning the patient on a combination of aspirin and Plavix and the patient will also be gradually weaned off the dopamine
--- NOTE | 2022-03-20 10:34 | P.PN ---
Subjective HISTORY OF PRESENTING ILLNESS Patient is pleasant 76-year-old female with history of CAD status post remote PCI, hypertension, hyperlipidemia, newly diagnosed atrial fibrillation. She had presented for increasing episodes of dyspnea with fairly minimal exertion and therefore underwent outpatient heart catheterization yesterday. Catheterization showed critical left main stenosis and underwent urgent bypass with RUBIN to LAD, left radial to OM, SVG to PDA as well as Jha-Maze pulmonary vein isolation and left atrial appendage exclusion. 03/19 Patient seen and examined. She denies any chest pain or pressure. She admits to some discomfort around the sternotomy. Dopamine was decreased from 5-3. She did have occasional mild bradycardia however heart rates have remained in the 60s to 90s. She has intermittently been going into atrial fibrillation and has been on amiodarone drip currently at 0.5. Cardiac index varying from 1.7 up to 2.0 today. Blood work this morning shows white blood cell count 13.9, hemoglobin 10.0, creatinine 0.6, albumin 3.7. 03/20 Patient seen and examined. Patient states she feels somewhat better today. On nasal cannula. No further significant bradycardic episodes. Patient has been on that atrial tachycardia with an atrial rate at 150 with heart rates in the 70s to 80s. PHYSICAL EXAMINATION Vital signs reviewed. CONSTITUTIONAL: No apparent distress. HEENT: Head is normocephalic. Pupils are equal, round. Sclerae anicteric. Mucous membranes of the mouth are moist. No JVD. No carotid bruit. CHEST EXAMINATION: Lungs are clear to auscultation. No chest wall tenderness is noted on palpation or with deep breathing. HEART EXAMINATION: Irregular rate and rhythm. S1, S2 heard. No murmurs, gallops or rub. ABDOMEN: Soft, nontender. Positive bowel sounds. EXTREMITIES: 2+ peripheral pulses, no lower extremity edema and no calf tenderness. NEUROLOGIC EXAMINATION: Patient is awake, alert and oriented x3. ASSESSMENT 1. CAD with prior history of PCI, critical left main stenosis status post 3 v essel CABG 03/18 2. Unstable angina 3. Hypertension 4. Newly diagnosed atrial fibrillation, currently in and out of A. fib and currently in A. tach with controlled ventricular rates 5. Mild postoperative bradycardia, may be related to vagal response 6. Mild anemia PLAN Preoperative echo been performed which showed EF 40-45% with mild global hypokinesis. Suspect mainly related to left main disease and hopefully will improve with revascularization. HISTORY OF PRESENTING ILLNESS Patient is pleasant 76-year-old female with history of CAD status post remote PCI, hypertension, hyperlipidemia, newly diagnosed atrial fibrillation. She had presented for increasing episodes of dyspnea with fairly minimal exertion and therefore underwent outpatient heart catheterization yesterday. Catheterization showed critical left main stenosis and underwent urgent bypass with RUBIN to LAD, left radial to OM, SVG to PDA as well as Jha-Maze pulmonary vein isolation and left atrial appendage exclusion. 03/19 Patient seen and examined. She denies any chest pain or pressure. She admits to some discomfort around the sternotomy. Dopamine was decreased from 5-3. She did have occasional mild bradycardia however heart rates have remained in the 60s to 90s. She has intermittently been going into atrial fibrillation and has been on amiodarone drip currently at 0.5. Cardiac index varying from 1.7 up to 2.0 today. Blood work this morning shows white blood cell count 13.9, hemoglobin 10.0, creatinine 0.6, albumin 3.7. PHYSICAL EXAMINATION Vital signs reviewed. CONSTITUTIONAL: No apparent distress. HEENT: Head is normocephalic. Pupils are equal, round. Sclerae anicteric. Mucous membranes of the mouth are moist. No JVD. No carotid bruit. CHEST EXAMINATION: Lungs are clear to auscultation. No chest wall tenderness is noted on palpation or with deep breathing. HEART EXAMINATION: Irregular rate and rhythm. S1, S2 heard. No murmurs, gallops or rub. ABDOMEN: Soft, nontender. Positive bowel sounds. EXTREMITIES: 2+ peripheral pulses, no lower extremity edema and no calf tenderness. NEUROLOGIC EXAMINATION: Patient is awake, alert and oriented x3. ASSESSMENT 1. CAD with prior history of PCI, critical left main stenosis status post 3 vessel CABG 03/18 2. Unstable angina 3. Hypertension 4. Newly diagnosed atrial fibrillation, currently in and out of A. fib and currently in A. fib with controlled ventricular rates 5. Mild postoperative bradycardia, may be related to vagal response 6. Mild anemia PLAN Preoperative echo been performed which showed EF 40-45% with mild global hy pokinesis. Suspect mainly related to left main disease and hopefully will improve with revascularization. She appears to be recovering from her bypass. Anticoagulation when cleared by cardiothoracic surgery. Continue with metoprolol 12.5 twice a day as well as Norvasc. Ideally HF regimen as able. Continue Dual antiplatelets. Monitor hemoglobin. Appears to be progressing Objective - Vital Signs Vital signs: Vital Signs Temp 100.2 F H 03/20/22 08:00 Pulse 82 03/20/22 10:00 Resp 22 03/20/22 10:00 BP 150/70 03/20/22 10:00 Pulse Ox 95 03/20/22 10:00 FiO2 50 03/18/22 20:27 Intake & Output 03/19/22 03/20/22 03/20/22 18:59 06:59 18:59 Intake Total 2073.397 1036.618 351.739 Output Total 2725 1150 320 Balance -651.603 -113.382 31.739 Weight 120.9 kg Intake: IV 488 457 101 CO/CI 80 80 20 Lactated Ringers 1,000 ml 300 260 60 @ 20 mls/hr IV .Q24H [facility] Rx#:[id number] Pressure bags 108 117 21 Intake, IV Titration 865.397 39.618 10.739 Amount Albumin Human 5% 250 ml @ 500 0 mls/hr IVPB [facility] Rx#:[id number] Amiodarone 450 mg In 269.316 Dextrose 5% in Water 250 ml @ 0.5 MG/MIN 16.667 mls/hr IV .Q15H [facility] Rx#: [id number] Insulin Regular 100 unit 46.081 39.618 10.739 In Sodium Chloride 0.9% 100 ml @ Per Protocol IV .Q0M [facility] Rx#:[id number] ceFAZolin 2 gm In Sodium 50 Chloride 0.9% 50 ml @ 100 mls/hr IVPB Q8H [facility] Rx#: [id number] Oral 720 540 240 Output: Chest Tube Drainage 280 100 80 Mediastinal/Left Pleural 280 100 80 Urine 2445 1050 240 Other: Voiding Method Indwelling Catheter Indwelling Catheter Indwelling Catheter ABP, PAP, CO, CI - Last Documented Arterial Blood Pressure 138/48 Pulmonary Artery Pressure 33/9 Cardiac Output 6.1 Cardiac Index 2.7 - Labs CBC & Chem 7: 03/20/22 03:45 03/20/22 03:45 Labs: Abnormal Lab Results - Last 24 Hours (Table) 03/18/22 03/19/22 03/19/22 Range/Units 07:55 11:06 12:04 WBC (3.8-10.6) k/uL RBC (3.80-5.40) m/uL Hgb (11.4-16.0) gm/dL Hct (34.0-46.0) % Plt Count (150-450) k/uL Neutrophils # (1.3-7.7) k/uL Sodium (137-145) mmol/L Glucose (74-99) mg/dL POC Glucose (mg/dL) 139 H 121 H (70-110) mg/dL Total Protein (6.3-8.2) g/dL Crossmatch See Detail 03/19/22 03/19/22 03/19/22 Range/Units 13:29 15:03 18:00 WBC (3.8-10.6) k/uL RBC (3.80-5.40) m/uL Hgb (11.4-16.0) gm/dL Hct (34.0-46.0) % Plt Count (150-450) k/uL Neutrophils # (1.3-7.7) k/uL Sodium (137-145) mmol/L Glucose (74-99) mg/dL POC Glucose (mg/dL) 132 H 130 H 154 H (70-110) mg/dL Total Protein (6.3-8.2) g/dL Crossmatch 03/19/22 03/19/22 03/19/22 Range/Units 19:03 20:01 21:49 WBC (3.8-10.6) k/uL RBC (3.80-5.40) m/uL Hgb (11.4-16.0) gm/dL Hct (34.0-46.0) % Plt Count (150-450) k/uL Neutrophils # (1.3-7.7) k/uL Sodium (137-145) mmol/L Glucose (74-99) mg/dL POC Glucose (mg/dL) 155 H 121 H 124 H (70-110) mg/dL Total Protein (6.3-8.2) g/dL Crossmatch 03/19/22 03/19/22 03/20/22 Range/Units 22:58 23:50 01:48 WBC (3.8-10.6) k/uL RBC (3.80-5.40) m/uL Hgb (11.4-16.0) gm/dL Hct (34.0-46.0) % Plt Count (150-450) k/uL Neutrophils # (1.3-7.7) k/uL Sodium (137-145) mmol/L Glucose (74-99) mg/dL POC Glucose (mg/dL) 114 H 121 H 127 H (70-110) mg/dL Total Protein (6.3-8.2) g/dL Crossmatch 03/20/22 03/20/22 03/20/22 Range/Units 03:45 03:45 03:47 WBC 12.1 H (3.8-10.6) k/uL RBC 3.08 L (3.80-5.40) m/uL Hgb 9.7 L (11.4-16.0) gm/dL Hct 28.6 L (34.0-46.0) % Plt Count 75 L (150-450) k/uL Neutrophils # 9.7 H (1.3-7.7) k/uL Sodium 135 L (137-145) mmol/L Glucose 131 H (74-99) mg/dL POC Glucose (mg/dL) 137 H (70-110) mg/dL Total Protein 5.4 L (6.3-8.2) g/dL Crossmatch 03/20/22 03/20/22 03/20/22 Range/Units 05:12 06:02 06:50 WBC (3.8-10.6) k/uL RBC (3.80-5.40) m/uL Hgb (11.4-16.0) gm/dL Hct (34.0-46.0) % Plt Count (150-450) k/uL Neutrophils # (1.3-7.7) k/uL Sodium (137-145) mmol/L Glucose (74-99) mg/dL POC Glucose (mg/dL) 132 H 115 H 114 H (70-110) mg/dL Total Protein (6.3-8.2) g/dL Crossmatch 03/20/22 03/20/22 03/20/22 Range/Units 08:04 09:06 10:05 WBC (3.8-10.6) k/uL RBC (3.80-5.40) m/uL Hgb (11.4-16.0) gm/dL Hct (34.0-46.0) % Plt Count (150-450) k/uL Neutrophils # (1.3-7.7) k/uL Sodium (137-145) mmol/L Glucose (74-99) mg/dL POC Glucose (mg/dL) 212 H 153 H 133 H (70-110) mg/dL Total Protein (6.3-8.2) g/dL Crossmatch Microbiology - Last 24 Hours (Table) 03/18/22 09:00 Nasal Screen MRSA/MSSA - Final Nasopharyngeal Swab
[2022-03-20] MEDS ORDERED: DEXTROSE 50% SYRINGE 50 ML IVP PRN ×2 (10:39)
[2022-03-20] MEDS ORDERED: ACETAMINOPHEN TAB 325 MG TAB PO PRN (11:13)
--- NOTE | 2022-03-20 11:35 | P.PN ---
Subjective Progress Note Date: 03/20/22 Principal diagnosis: Coronary artery disease, unstable angina, paroxysmal atrial fibrillation. Past medical history significant for coronary artery disease with myocardial infarct ion in 2013, status post PCI to the RCA, hypertension, hyperlipidemia, new onset slow atrial fibrillation, remote history of pulmonary embolism, obstructive sleep apnea with home CPAP use, remote history of pneumonia, lifetime nonsmoker, morbid obesity with a BMI of 41.0 kg/m, borderline diabetic with a preoperative hemoglobin A1c 6.2% and family history of premature coronary artery disease with her father having multiple myocardial infarctions before the age of 60. POD #2 off-pump coronary artery bypass grafting 3 with RUBIN to LAD, left radial artery graft to obtuse marginal, saphenous vein graft to posterior descending coronary artery, endovascular vein harvest, endovascular radial artery harvest, modified Jha maze with bilateral pulmonary vein isolation and exclusion of the left atrial appendage. Postoperative acute blood loss anemia, expected secondary to hemodilution. The patient was seen and examined today 03/20/2022 at her bedside in the intensive care unit. Currently she is sitting up to the bedside chair, is awake, alert, oriented 3 and is in no acute distress. Denies any complaints of shortness of breath although was complaining of some surgical type pain rating her pain 3 out of 4 on the pain scale 2 her chest tube insertion sites. Denies any nausea or vomiting. She remains hemodynamically stable and is currently on no on a tropical pressor support. Oxygen saturations are 94% on room air and she is achieving 750-1000 mL on her incentive spirometry with much encouragement. Bedside telemetry showing normal sinus rhythm heart rate 78 BPM, no further episodes of heart block or atrial fibrillation reported. Atrial and ventricular epicardial pacemaker wires remained in place and are grounded. She remains hemodynamically stable and is currently on no on a tropical pressor support. Mediastinal and left pleural chest tubes remain in place to low con tinuous wall suction -20 cm H2O. No air leak is present. Draining thin serosanguineous drainage with 50 mL output in the last 8 hours and 420 mL output the last 24 hours. Right IJ Cordis and [place]-My catheter remains in place with current hemodynamic showing a cardiac output 5.2, cardiac index 2.3, PA pressures 36/9 and CVP 6 mmHg. Rondon catheter remains in place for accurate I's and O's with urine output 540 mL in the last 8 hours. Laboratory results this morning show a WBC count of 12.1, hemoglobin 9.7, hematocrit 28.6, platelet 75, sodium 135, potassium 3.7, BUN 11, creatinine 0.63, glucose 131, calcium 8.4 and ionized calcium 4.9. Chest x-ray was reviewed. Objective - Vital Signs Vital signs: Vital Signs Temp 100.2 F H 03/20/22 08:00 Pulse 82 03/20/22 11:00 Resp 20 03/20/22 11:00 BP 126/58 03/20/22 11:00 Pulse Ox 95 03/20/22 11:00 FiO2 50 03/18/22 20:27 Intake & Output 03/19/22 03/20/22 03/20/22 18:59 06:59 18:59 Intake Total 2073.397 1036.618 374.739 Output Total 2725 1150 720 Balance -651.603 -113.382 -345.261 Weight 120.9 kg Intake: IV 488 457 124 CO/CI 80 80 20 Lactated Ringers 1,000 ml 300 260 80 @ 20 mls/hr IV .Q[facility]H [facility] Rx#:[id number] Pressure bags 108 117 24 Intake, IV Titration 865.397 39.618 10.739 Amount Albumin Human 5% 250 ml @ 500 0 mls/hr IVPB .[facility] Rx#:[id number] Amiodarone 450 mg In 269.316 Dextrose 5% in Water 250 ml @ 0.5 MG/MIN 16.667 mls/hr IV .Q15H [facility] Rx#: [id number] Insulin Regular 100 unit 46.081 39.618 10.739 In Sodium Chloride 0.9% 100 ml @ Per Protocol IV .Q0M [facility] Rx#:[id number] ceFAZolin 2 gm In Sodium 50 Chloride 0.9% 50 ml @ 100 mls/hr IVPB Q8H [facility] Rx#: [id number] Oral 720 540 240 Output: Chest Tube Drainage 280 100 80 Mediastinal/Left Pleural 280 100 80 Urine 2445 1050 640 Other: Voiding Method Indwelling Catheter Indwelling Catheter Indwelling Catheter ABP, PAP, CO, CI - Last Documented Arterial Blood Pressure 149/58 Pulmonary Artery Pressure 33/9 Cardiac Output 6.1 Cardiac Index 2.7 - Exam CONSTITUTIONAL: Sitting up to the bedside chair in the intensive care unit, appears comfortable, cooperative, no apparent acute distress. HEENT: Neck is supple, no JVD, no lymphadenopathy. Right IJ Cordis and [place]- My catheter in place and functioning. RESPIRATORY: Lungs sounds essentially clear throughout, diminished to his bilat eral bases. Respirations are symmetrical and nonlabored. Currently on room air with oxygen saturations 94%. Able to achieve 750 -1000 mL on incentive spirometry. Strong cough. CARDIOVASCULAR: Regular rhythm and rate. S1 and S2 present, negative for S3, gallop or murmur. Sternum is stable. Palpable peripheral pulses bilaterally, +1 edema to his bilateral lower extremities. No calf pain or tenderness noted. Heart hugger in place with patient demonstrating appropriate use. Knee-high CARLITOS hose and sequential compression devices in place to his bilateral lower extremities. Bedside telemetry showing normal sinus rhythm, heart rate 78 bpm. GASTROINTESTINAL: Abdomen soft, nontender, nondistended. Active bowel sounds present 4 quadrants. Tolerating diet. Passing flatus. No guarding or rigidity. GENITOURINARY: Rondon present draining clear, yellow urine. Urine output 540 mL in the last 8 hours. INTEGUMENTARY: Skin is warm and dry with no evidence of clubbing or cyanosis. Midline sternal incision clean dry and well approximated, covered with dry intact dressing. Left lower extremity EVH site well approximated without redness or drainage. Left arm radial artery harvest sites clean, dry and approximated. No drainage or redness is present. NEUROLOGIC: Cranial nerves II through XII intact. No focal deficits. MUSKULOSKELETAL: Able to move all extremities, strength equal bilaterally, generalized weakness. PSYCHIATRIC: Alert and oriented to person place and time, appropriate affect, intact judgment and insight. INVASIVE LINES AND TUBES: Mediastinal/left pleural chest tubes present and connected to low continuous wall suction, no air leaks present. Mediastinal tube with 50 mL of thin serosanguineous drainage overnight, 420 mL output in the last 24 hours. Atrial and ventricular epicardial pacemaker wires present and grounded. Right internal jugular [place]/Cordis, right radial arterial line present. Last CO 5.2, CI 2.3, PA 36/9 and CVP 6 mmHg. - Allied health notes Allied health notes reviewed: nursing - Labs CBC & Chem 7: 03/20/22 03:45 03/20/22 03:45 Labs: Abnormal Lab Results - Last 24 Hours (Table) 03/18/22 03/19/22 03/19/22 Range/Units 07:55 12:04 13:29 WBC (3.8-10.6) k/uL RBC (3.80-5.40) m/uL Hgb (11.4-16.0) gm/dL Hct (34.0-46.0) % Plt Count (150-450) k/uL Neutrophils # (1.3-7.7) k/uL Sodium (137-145) mmol/L Glucose (74-99) mg/dL POC Glucose (mg/dL) 121 H 132 H (70-110) mg/dL Total Protein (6.3-8.2) g/dL Crossmatch See Detail 03/19/22 03/19/22 03/19/22 Range/Units 15:03 18:00 19:03 WBC (3.8-10.6) k/uL RBC (3.80-5.40) m/uL Hgb (11.4-16.0) gm/dL Hct (34.0-46.0) % Plt Count (150-450) k/uL Neutrophils # (1.3-7.7) k/uL Sodium (137-145) mmol/L Glucose (74-99) mg/dL POC Glucose (mg/dL) 130 H 154 H 155 H (70-110) mg/dL Total Protein (6.3-8.2) g/dL Crossmatch 03/19/22 03/19/22 03/19/22 Range/Units 20:01 21:49 22:58 WBC (3.8-10.6) k/uL RBC (3.80-5.40) m/uL Hgb (11.4-16.0) gm/dL Hct (34.0-46.0) % Plt Count (150-450) k/uL Neutrophils # (1.3-7.7) k/uL Sodium (137-145) mmol/L Glucose (74-99) mg/dL POC Glucose (mg/dL) 121 H 124 H 114 H (70-110) mg/dL Total Protein (6.3-8.2) g/dL Crossmatch 03/19/22 03/20/22 03/20/22 Range/Units 23:50 01:48 03:45 WBC 12.1 H (3.8-10.6) k/uL RBC 3.08 L (3.80-5.40) m/uL Hgb 9.7 L (11.4-16.0) gm/dL Hct 28.6 L (34.0-46.0) % Plt Count 75 L (150-450) k/uL Neutrophils # 9.7 H (1.3-7.7) k/uL Sodium (137-145) mmol/L Glucose (74-99) mg/dL POC Glucose (mg/dL) 121 H 127 H (70-110) mg/dL Total Protein (6.3-8.2) g/dL Crossmatch 03/20/22 03/20/22 03/20/22 Range/Units 03:45 03:47 05:12 WBC (3.8-10.6) k/uL RBC (3.80-5.40) m/uL Hgb (11.4-16.0) gm/dL Hct (34.0-46.0) % Plt Count (150-450) k/uL Neutrophils # (1.3-7.7) k/uL Sodium 135 L (137-145) mmol/L Glucose 131 H (74-99) mg/dL POC Glucose (mg/dL) 137 H 132 H (70-110) mg/dL Total Protein 5.4 L (6.3-8.2) g/dL Crossmatch 03/20/22 03/20/22 03/20/22 Range/Units 06:02 06:50 08:04 WBC (3.8-10.6) k/uL RBC (3.80-5.40) m/uL Hgb (11.4-16.0) gm/dL Hct (34.0-46.0) % Plt Count (150-450) k/uL Neutrophils # (1.3-7.7) k/uL Sodium (137-145) mmol/L Glucose (74-99) mg/dL POC Glucose (mg/dL) 115 H 114 H 212 H (70-110) mg/dL Total Protein (6.3-8.2) g/dL Crossmatch 03/20/22 03/20/22 Range/Units 09:06 10:05 WBC (3.8-10.6) k/uL RBC (3.80-5.40) m/uL Hgb (11.4-16.0) gm/dL Hct (34.0-46.0) % Plt Count (150-450) k/uL Neutrophils # (1.3-7.7) k/uL Sodium (137-145) mmol/L Glucose (74-99) mg/dL POC Glucose (mg/dL) 153 H 133 H (70-110) mg/dL Total Protein (6.3-8.2) g/dL Crossmatch Microbiology - Last 24 Hours (Table) 03/18/22 09:00 Nasal Screen MRSA/MSSA - Final Nasopharyngeal Swab - Imaging and Cardiology Chest x-ray: report reviewed, image reviewed Assessment and Plan Assessment: 1. Coronary artery disease, status post three-vessel CABG 03/18/2022 2. Unstable angina 3. Paroxysmal atrial fibrillation, status post modified Jha maze with bilateral pulmonary vein isolation and exclusion of the left atrial appendage 4. History of coronary artery disease status post PCI to the right coronary artery in 2013 5. History of myocardial infarction in 2013 6. History of hypertension 7. History of hyperlipidemia, treated, cholesterol 155, LDL 84.6 8. Obstructive sleep apnea, with home CPAP use 9. Morbid obesity with BMI of 41.0 kg/m 10. Remote history of pneumonia 11. Borderline diabetic with a preoperative hemoglobin A1c 6.2% 12. Family history of premature coronary artery disease with her father having multiple myocardial infarctions before the age of 60 13. Lifetime nonsmoker 14. Third-degree heart block, currently paced on DDD of 80 bpm 15. Postoperative acute blood loss anemia, expected given hemodilution Plan: 1. Continue aspirin, statin, and Plavix. Will reinitiate metoprolol tartrate 12.5 mg by mouth twice a day with hold parameters. 2. Continue Amlodipine 5 mg by mouth daily at noon for radial artery spasm prophylaxis. 3. Encourage incentive spirometry use 10 times every hour while awake. Bronchodilators per pulmonology. 4. Increase activity, ambulate as tolerated. PT/OT/cardiac rehab following. 5. Will monitor daily labs and chest x-rays. Electrolyte replacement per protocol. 6. GI/DVT prophylaxis. 7. Pain control with current medication regimen. Discontinue [place] and start acetaminophen 650 mg by mouth every 4 hours when necessary pain. Discontinue Toradol. 8. Insulin management per internal medicine. Patient needs tight blood sugar control to prevent infection and promote healing. She is a borderline diabetic with a preoperative hemoglobin A1c of 6.2%. 9. Remove her right IJ cordis and [place]-My today. 10. Chest tubes removed without incident. 11. Continue Rondon catheter for another 24 hours for strict accurate intake and output. Daily weights. 12. Atrial and ventricular epicardial pacemaker wires removed without incident, she will be on bed rest for 1 hour post pacemaker wire removal. 13. Lasix 20 mg IV 1 now. 14. Keep in the intensive care unit for another 24 hours, anticipate transfer to third floor cardiac stepdown unit tomorrow and discharge planning is in place. 15. We will start the patient on Eliquis 5 mg by mouth twice a day for anticoagulation starting tomorrow morning 03/21/2022. 16. More recommendations to follow based on patient's clinical course. Time with Patient: Greater than 30
[2022-03-20 12:18] LABS: Glucose,Whole Blood 133 mg/dL (70-110)
[2022-03-20] MEDS: INSULIN ASPART (NovoLOG) 100 UNIT/ML VIAL SQ SCH ×3 (12:40→21:33)
[2022-03-20] MEDS: amLODIPine 5 MG TAB PO SCH (12:41)
[2022-03-20] MEDS: MULTIVITAMINS, THERA 1 EACH TAB PO SCH (12:41)
[2022-03-20 16:50] LABS: Glucose,Whole Blood 176 mg/dL (70-110)
[2022-03-20 18:13] LABS: Glucose,Whole Blood 159 mg/dL (70-110)
[2022-03-20 21:21] LABS: Glucose,Whole Blood 166 mg/dL (70-110)
--- NOTE | 2022-03-20 21:28 | P.PN ---
Subjective This is a pleasant 76 years old female with multiple medical problems as below including Coronary Artery Disease, Hyperlipidemia, Hypertension, Pulmonary Embolus (PE) not on anticoagulation, , Sleep Apnea/CPAP/BIPAP Patient was admitted for his unstable angina and she underwent coronary artery bypass grafting. Today is postoperative day #1 Patient is sitting in chair. Tomorrow, no chest pain or dyspnea, no diarrhea or abdominal pain or vomiting. Not shown WBC 13.9. Hemoglobin 10.4. BMP and liver enzymes are unremarkable. Hemoglobin A1c is 6.2 Vitals stable, temperature 99.7, she is saturating 96% on 3 L oxygen via nasal cannula Ejection fraction: 40-45% Chest x-ray: Mild pulmonary vascular congestion, no consolidation. Carotid duplex: 50% stenosis 03/20/2022 Patient with no new complaints, no chest pain or dyspnea remains in the ICU monitor closely. Blood pressure stable but she developing low-grade fever of 100.2 today, WBC tr ending down 13 point plus down to 12,000. Hemoglobin 9.7 Patient is an combination of aspirin and Plavix and low-dose metoprolol Eliquis admitted today for new onset A. 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 Ejection fraction 40-45%. Chest x-ray showing bibasilar atelectasis. Objective - Vital Signs Vital signs: Vital Signs Temp 100.2 F H 03/20/22 08:00 Pulse 82 03/20/22 10:00 Resp 22 03/20/22 10:00 BP 150/70 03/20/22 10:00 Pulse Ox 95 03/20/22 10:00 FiO2 50 03/18/22 20:27 Intake & Output 03/19/22 03/20/22 03/20/22 18:59 06:59 18:59 Intake Total 2073.397 1036.618 351.739 Output Total 2725 1150 320 Balance -651.603 -113.382 31.739 Weight 120.9 kg Intake: IV 488 457 101 CO/CI 80 80 20 Lactated Ringers 1,000 ml 300 260 60 @ 20 mls/hr IV .Q24H [facility] Rx#:[id number] Pressure bags 108 117 21 Intake, IV Titration 865.397 39.618 10.739 Amount Albumin Human 5% 250 ml @ 500 0 mls/hr IVPB [facility] Rx#:[id number] Amiodarone 450 mg In 269.316 Dextrose 5% in Water 250 ml @ 0.5 MG/MIN 16.667 mls/hr IV .Q15H [facility] Rx#: [id number] Insulin Regular 100 unit 46.081 39.618 10.739 In Sodium Chloride 0.9% 100 ml @ Per Protocol IV .Q0M [facility] Rx#:[id number] ceFAZolin 2 gm In Sodium 50 Chloride 0.9% 50 ml @ 100 mls/hr IVPB Q8H [facility] Rx#: [id number] Oral 720 540 240 Output: Chest Tube Drainage 280 100 80 Mediastinal/Left Pleural 280 100 80 Urine 2445 1050 240 Other: Voiding Method Indwelling Catheter Indwelling Catheter Indwelling Catheter ABP, PAP, CO, CI - Last Documented Arterial Blood Pressure 138/48 Pulmonary Artery Pressure 33/9 Cardiac Output 6.1 Cardiac Index 2.7 - Exam GENERAL: The patient is alert and oriented x3, not in any acute distress. Well developed, well nourished. HEENT: Pupils are round and equally reacting to light. EOMI. No scleral icterus. No conjunctival pallor. Normocephalic, atraumatic. No pharyngeal erythema. No thyromegaly. CARDIOVASCULAR: S1 and S2 present. No murmurs, rubs, or gallops. PULMONARY: Chest is clear to auscultation, no wheezing or crackles. ABDOMEN: Soft, nontender, nondistended, normoactive bowel sounds. No palpable organomegaly. MUSCULOSKELETAL: No joint swelling or deformity. EXTREMITIES: No cyanosis, clubbing, or pedal edema. NEUROLOGICAL: Gross neurological examination did not reveal any focal deficits. SKIN: No rashes. no petechiae. - Labs CBC & Chem 7: 03/20/22 03:45 03/20/22 03:45 Labs: Abnormal Lab Results - Last 24 Hours (Table) 03/18/22 03/19/22 03/19/22 Range/Units 07:55 11:06 12:04 WBC (3.8-10.6) k/uL RBC (3.80-5.40) m/uL Hgb (11.4-16.0) gm/dL Hct (34.0-46.0) % Plt Count (150-450) k/uL Neutrophils # (1.3-7.7) k/uL Sodium (137-145) mmol/L Glucose (74-99) mg/dL POC Glucose (mg/dL) 139 H 121 H (70-110) mg/dL Total Protein (6.3-8.2) g/dL Crossmatch See Detail 03/19/22 03/19/22 03/19/22 Range/Units 13:29 15:03 18:00 WBC (3.8-10.6) k/uL RBC (3.80-5.40) m/uL Hgb (11.4-16.0) gm/dL Hct (34.0-46.0) % Plt Count (150-450) k/uL Neutrophils # (1.3-7.7) k/uL Sodium (137-145) mmol/L Glucose (74-99) mg/dL POC Glucose (mg/dL) 132 H 130 H 154 H (70-110) mg/dL Total Protein (6.3-8.2) g/dL Crossmatch 03/19/22 03/19/22 03/19/22 Range/Units 19:03 20:01 21:49 WBC (3.8-10.6) k/uL RBC (3.80-5.40) m/uL Hgb (11.4-16.0) gm/dL Hct (34.0-46.0) % Plt Count (150-450) k/uL Neutrophils # (1.3-7.7) k/uL Sodium (137-145) mmol/L Glucose (74-99) mg/dL POC Glucose (mg/dL) 155 H 121 H 124 H (70-110) mg/dL Total Protein (6.3-8.2) g/dL Crossmatch 03/19/22 03/19/22 03/20/22 Range/Units 22:58 23:50 01:48 WBC (3.8-10.6) k/uL RBC (3.80-5.40) m/uL Hgb (11.4-16.0) gm/dL Hct (34.0-46.0) % Plt Count (150-450) k/uL Neutrophils # (1.3-7.7) k/uL Sodium (137-145) mmol/L Glucose (74-99) mg/dL POC Glucose (mg/dL) 114 H 121 H 127 H (70-110) mg/dL Total Protein (6.3-8.2) g/dL Crossmatch 03/20/22 03/20/22 03/20/22 Range/Units 03:45 03:45 03:47 WBC 12.1 H (3.8-10.6) k/uL RBC 3.08 L (3.80-5.40) m/uL Hgb 9.7 L (11.4-16.0) gm/dL Hct 28.6 L (34.0-46.0) % Plt Count 75 L (150-450) k/uL Neutrophils # 9.7 H (1.3-7.7) k/uL Sodium 135 L (137-145) mmol/L Glucose 131 H (74-99) mg/dL POC Glucose (mg/dL) 137 H (70-110) mg/dL Total Protein 5.4 L (6.3-8.2) g/dL Crossmatch 03/20/22 03/20/22 03/20/22 Range/Units 05:12 06:02 06:50 WBC (3.8-10.6) k/uL RBC (3.80-5.40) m/uL Hgb (11.4-16.0) gm/dL Hct (34.0-46.0) % Plt Count (150-450) k/uL Neutrophils # (1.3-7.7) k/uL Sodium (137-145) mmol/L Glucose (74-99) mg/dL POC Glucose (mg/dL) 132 H 115 H 114 H (70-110) mg/dL Total Protein (6.3-8.2) g/dL Crossmatch 03/20/22 03/20/22 03/20/22 Range/Units 08:04 09:06 10:05 WBC (3.8-10.6) k/uL RBC (3.80-5.40) m/uL Hgb (11.4-16.0) gm/dL Hct (34.0-46.0) % Plt Count (150-450) k/uL Neutrophils # (1.3-7.7) k/uL Sodium (137-145) mmol/L Glucose (74-99) mg/dL POC Glucose (mg/dL) 212 H 153 H 133 H (70-110) mg/dL Total Protein (6.3-8.2) g/dL Crossmatch Microbiology - Last 24 Hours (Table) 03/18/22 09:00 Nasal Screen MRSA/MSSA - Final Nasopharyngeal Swab Assessment and Plan Assessment: unstable angina Status post coronary artery bypass grafting 3 with RUBIN to LAD Paroxysmal atrial fibrillation with heart rate controlled Sleep Apnea/CPAP/BIPA hypertensio leukocytosis, most likely reactive Postop anemia expected Hyperlipidemia History of pulmonary embolism Obesity with BMI of 41 Mild cardiomyopathy Plan: Continue with aspirin and Plavix. Also patient started on liquids anti coagulation per cardiolosurgery team Keep monitoring labs includinghemoglobin Labs and medication were reviewed.. Continue same treatment. Continue with symptomatic treatment. Resume home medication. Monitor labs and vitals. DVT and GI prophylaxis. Further recommendations as per clinical course of the patient DVT prophylaxis: Deferred to surgery team GI Prophylaxis: Ppi Prognosis is guarded
[2022-03-20] MEDS: SENNOSIDES-DOCUSATE SODIUM 1 EACH TAB PO SCH (21:32)
[2022-03-20] MEDS: ATORVASTATIN 40 MG TAB PO SCH (21:34)
[2022-03-21] MEDS: HEPARIN SODIUM,PORCINE/PF 5,000 UNIT/0.5 ML SYRINGE SQ SCH ×2 (00:19→08:37)
[2022-03-21 06:49] LABS: Basophils # (A) 0.1 k/uL (0-0.2); Basophils % (A) 0 %; Eosinophils # (A) 0.2 k/uL (0-0.7); Eosinophils % (A) 1 %; HCT 32.2 % (34.0-46.0); HGB 10.7 gm/dL (11.4-16.0); Hypochromasia Slight; Lymphocytes # (A) 1.4 k/uL (1.0-4.8); Lymphocytes % (A) 12 %; MCH 31.9 pg (25.0-35.0); MCHC 33.3 g/dL (31.0-37.0); MCV 95.9 fL (80.0-100.0); Mean Platelet Volume 12.3; Monocytes # (A) 0.5 k/uL (0-1.0); Monocytes % (A) 4 %; Neutrophils # (A) 9.9 k/uL (1.3-7.7); Neutrophils % (A) 81 %; RBC 3.35 m/uL (3.80-5.40); RDW 12.5 % (11.5-15.5); WBC 12.1 k/uL (3.8-10.6)
[2022-03-21 06:52] LABS: Platelet Count 96 k/uL (150-450)
--- NOTE | 2022-03-21 06:53 | XR ---
EXAMINATION TYPE: XR chest 2V DATE OF EXAM: 03/21/2022 COMPARISON: 03/20/2022 HISTORY: Post CABG TECHNIQUE: Frontal and lateral views of the chest are obtained. FINDINGS: There has been interval removal of the [place]-My catheter. There are postsurgical changes of CABG surgery. The heart size is normal. The pulmonary vasculature appears mildly congested and there is mild inters titial edema with small bilateral pleural effusions. There is no pneumothorax. The osseous structures are intact IMPRESSION: 1. Al[place]-My catheter removal. 2. Post CABG surgery. 3. No change in the mild pulmonary vascular congestion, mild interstitial edema and small pleural eff usions.
[2022-03-21 06:58] LABS: Glucose,Whole Blood 148 mg/dL (70-110)
[2022-03-21 06:58] LABS: ALT 18 U/L (4-34); AST 25 U/L (14-36); African American GFR (CKD) >90 (>60 ml/min/1.73 sqM); Albumin 3.7 g/dL (3.5-5.0); Alkaline Phosphatase 68 U/L (38-126); Anion Gap 8 mmol/L; Blood Urea Nitrogen 13 mg/dL (7-17); Calcium 8.5 mg/dL (8.4-10.2); Carbon Dioxide 24 mmol/L (22-30); Chloride 106 mmol/L (98-107); Glucose 143 mg/dL (74-99); Non-African American GFR(CKD) 86 (>60 ml/min/1.73 sqM); Potassium 3.7 mmol/L (3.5-5.1); Sodium 138 mmol/L (137-145); Total Bilirubin 1.8 mg/dL (0.2-1.3); Total Protein 5.7 g/dL (6.3-8.2)
[2022-03-21] MEDS: INSULIN ASPART (NovoLOG) 100 UNIT/ML VIAL SQ SCH ×4 (06:59→20:40)
[2022-03-21] MEDS ORDERED: POTASSIUM CHLORIDE ER 20 MEQ TAB.ER PO SCH ×3 (07:00→09:00)
[2022-03-21] MEDS ORDERED: guaiFENesin-DM 100-10MG/5ML 10 ML CUP PO PRN (07:11)
[2022-03-21] MEDS: PANTOPRAZOLE 40 MG TABLET PO SCH ×2 (07:24→07:30)
[2022-03-21] MEDS: IPRATROPIUM-ALBUTEROL 3 ML NEB INHALATION SCH ×4 (08:19→19:40)
[2022-03-21] MEDS ORDERED: FUROSEMIDE 10 MG/ML 2 ML VIAL IV ONE (08:20)
--- NOTE | 2022-03-21 08:20 | P.PN ---
Subjective Progress Note Date: 03/21/22 Principal diagnosis: Coronary artery disease, unstable angina, paroxysmal atrial fibrillation. Past medical history significant for coronary artery disease with myocardial infarct ion in 2013, status post PCI to the RCA, hypertension, hyperlipidemia, new onset slow atrial fibrillation, remote history of pulmonary embolism, obstructive sleep apnea with home CPAP use, remote history of pneumonia, lifetime nonsmoker, morbid obesity with a BMI of 41.0 kg/m, borderline diabetic with a preoperative hemoglobin A1c 6.2% and family history of premature coronary artery disease with her father having multiple myocardial infarctions before the age of 60. POD #3 off-pump coronary artery bypass grafting 3 with RUBIN to LAD, left radial artery graft to obtuse marginal, saphenous vein graft to posterior descending coronary artery, endovascular vein harvest, endovascular radial artery harvest, modified Jha maze with bilateral pulmonary vein isolation and exclusion of the left atrial appendage. Postoperative acute blood loss anemia, expected secondary to hemodilution. The patient was seen and examined in follow-up today 03/21/2022 at her bedside in the intensive care unit. She is sitting up to the bedside chair, is awake, alert, oriented 3 and is in no acute apparent distress. The patient reports that she had little sleep last night due to her CPAP machine not working properly and an occasional cough. She denies any complaints of shortness of breath or pain at this time. Her chest tubes and epicardial pacemaker wires were removed without incident yesterday. She remains hemodynamically stable and is currently on no inotropic pressure support. Oxygen saturation are 94% on room air and she is achieving 750 mL on her incentive spirometry with encouragement. Bedside telemetry showing normal sinus rhythm heart rate 84 BPM. Laboratory results this morning showed WBC count 12.1, hemoglobin 10.7, hematocrit 32.2, platelets 96, sodium 138, potassium 3.7, BUN 13, creatinine 0.68 and glucose 143. She reports she did ambulate in the intensive care unit who yesterday with standby assistance from nursing and therapy staff. Chest x- ray reviewed from this morning. Objective - Vital Signs Vital signs: Vital Signs Temp 98.7 F 03/21/22 04:00 Pulse 84 03/21/22 07:00 Resp 26 H 03/21/22 07:00 BP 125/67 03/21/22 07:00 Pulse Ox 93 L 03/21/22 07:00 FiO2 50 03/18/22 20:27 Intake & Output 03/20/22 03/21/22 03/21/22 18:59 06:59 18:59 Intake Total 614.739 660 Output Total 1925 600 Balance -1310.261 60 Weight 120.9 kg 119.6 kg Intake: IV 124 CO/CI 20 Lactated Ringers 1,000 ml 80 @ 20 mls/hr IV .Q24H [facility] Rx#:[id number] Pressure bags 24 Intake, IV Titration 10.739 Amount Insulin Regular 100 unit 10.739 In Sodium Chloride 0.9% 100 ml @ Per Protocol IV .Q0M [facility] Rx#:[id number] Oral 480 660 Output: Chest Tube Drainage 80 Mediastinal/Left Pleural 80 Urine 1845 600 Other: Voiding Method Indwelling Catheter # Voids 1 ABP, PAP, CO, CI - Last Documented Arterial Blood Pressure 149/58 Pulmonary Artery Pressure 33/9 Cardiac Output 6.1 Cardiac Index 2.7 - Exam CONSTITUTIONAL: Sitting up to the bedside chair in the intensive care unit, appears comfortable, cooperative, no apparent acute distress. HEENT: Neck is supple, no JVD, no lymphadenopathy. RESPIRATORY: Lungs sounds essentially clear throughout, diminished to his bilateral bases. Respirations are symmetrical and nonlabored. Currently on room air with oxygen saturations 94%. Able to achieve 750 mL on incentive spirometry. Strong cough. CARDIOVASCULAR: Regular rhythm and rate. S1 and S2 present, negative for S3, gallop or murmur. Sternum is stable. Palpable peripheral pulses bilaterally, +1 edema to her bilateral lower extremities. No calf pain or tenderness noted. Heart hugger in place with patient demonstrating appropriate use. Knee-high CARLITOS hose and sequential compression devices in place to his bilateral lower extremities. Bedside telemetry showing normal sinus rhythm, heart rate 84 bpm. GASTROINTESTINAL: Abdomen soft, nontender, nondistended. Active bowel sounds present 4 quadrants. Tolerating diet. Passing flatus. No guarding or rigidity. GENITOURINARY: Continues to void. Urine output 400 mL in the last 8 hours. INTEGUMENTARY: Skin is warm and dry with no evidence of clubbing or cyanosis. Midline sternal incision clean dry and well approximated, covered with dry intact dressing. Left lower extremity EVH site well approximated without redness or drainage. Left arm radial artery harvest sites clean, dry and approximated. No drainage or redness is present. NEUROLOGIC: Cranial nerves II through XII intact. No focal deficits. MUSKULOSKELETAL: Able to move all extremities, strength equal bilaterally. PSYCHIATRIC: Alert and oriented to person place and time, appropriate affect, intact judgment and insight. - Allied health notes Allied health notes reviewed: nursing - Labs CBC & Chem 7: 03/21/22 06:31 03/21/22 06:31 Labs: Abnormal Lab Results - Last 24 Hours (Table) 03/20/22 03/20/22 03/20/22 Range/Units 03:45 09:06 10:05 WBC (3.8-10.6) k/uL RBC (3.80-5.40) m/uL Hgb (11.4-16.0) gm/dL Hct (34.0-46.0) % Plt Count (150-450) k/uL Neutrophils # (1.3-7.7) k/uL Glucose (74-99) mg/dL POC Glucose (mg/dL) 153 H 133 H (70-110) mg/dL Hemoglobin A1c 6.1 H (0.0-6.0) % Total Bilirubin (0.2-1.3) mg/dL Total Protein (6.3-8.2) g/dL 03/20/22 03/20/22 03/20/22 Range/Units 12:16 16:49 18:12 WBC (3.8-10.6) k/uL RBC (3.80-5.40) m/uL Hgb (11.4-16.0) gm/dL Hct (34.0-46.0) % Plt Count (150-450) k/uL Neutrophils # (1.3-7.7) k/uL Glucose (74-99) mg/dL POC Glucose (mg/dL) 133 H 176 H 159 H (70-110) mg/dL Hemoglobin A1c (0.0-6.0) % Total Bilirubin (0.2-1.3) mg/dL Total Protein (6.3-8.2) g/dL 03/20/22 03/21/22 03/21/22 Range/Units 21:20 06:31 06:31 WBC 12.1 H (3.8-10.6) k/uL RBC 3.35 L (3.80-5.40) m/uL Hgb 10.7 L (11.4-16.0) gm/dL Hct 32.2 L (34.0-46.0) % Plt Count 96 L (150-450) k/uL Neutrophils # 9.9 H (1.3-7.7) k/uL Glucose 143 H (74-99) mg/dL POC Glucose (mg/dL) 166 H (70-110) mg/dL Hemoglobin A1c (0.0-6.0) % Total Bilirubin 1.8 H (0.2-1.3) mg/dL Total Protein 5.7 L (6.3-8.2) g/dL 03/21/22 Range/Units 06:57 WBC (3.8-10.6) k/uL RBC (3.80-5.40) m/uL Hgb (11.4-16.0) gm/dL Hct (34.0-46.0) % Plt Count (150-450) k/uL Neutrophils # (1.3-7.7) k/uL Glucose (74-99) mg/dL POC Glucose (mg/dL) 148 H (70-110) mg/dL Hemoglobin A1c (0.0-6.0) % Total Bilirubin (0.2-1.3) mg/dL Total Protein (6.3-8.2) g/dL - Imaging and Cardiology Chest x-ray: report reviewed, image reviewed Assessment and Plan Assessment: 1. Coronary artery disease, status post three-vessel CABG 03/18/2022 2. Unstable angina 3. Paroxysmal atrial fibrillation, status post modified Jha maze with bilateral pulmonary vein isolation and exclusion of the left atrial appendage 4. History of coronary artery disease status post PCI to the right coronary artery in 2013 5. History of myocardial infarction in 2013 6. History of hypertension 7. History of hyperlipidemia, treated, cholesterol 155, LDL 84.6 8. Obstructive sleep apnea, with home CPAP use 9. Morbid obesity with BMI of 41.0 kg/m 10. Remote history of pneumonia 11. Borderline diabetic with a preoperative hemoglobin A1c 6.2% 12. Family history of premature coronary artery disease with her father having multiple myocardial infarctions before the age of 60 13. Lifetime nonsmoker 14. Third-degree heart block, resolved, currently normal sinus rhythm heart rate 84 BPM 15. Postoperative acute blood loss anemia, expected given hemodilution Plan: 1. Continue aspirin, statin, Plavix and beta sherry. Will increase metoprolol tartrate 25 mg by mouth twice a day with hold parameters. 2. Continue Amlodipine 5 mg by mouth daily at noon for radial artery spasm prophylaxis. 3. Encourage incentive spirometry use 10 times every hour while awake. Bronchodilators per pulmonology. 4. Increase activity, ambulate as tolerated. PT/OT/cardiac rehab following. 5. Will monitor daily labs and chest x-rays. Electrolyte replacement per pr otocol. 6. GI/DVT prophylaxis. 7. Pain control with current medication regimen. 8. Insulin management per internal medicine. Patient needs tight blood sugar control to prevent infection and promote healing. She is a borderline diabetic with a preoperative hemoglobin A1c of 6.2%. 9. Continue to record strict accurate I's and O's, May bladder scan every 6 hours and when necessary postvoid residual. Daily weights. 10. Daily shower. 11. Lasix 20 mg IV 1 now and potassium chloride 40 mEq by mouth 1 now. 12. Eliquis was 5 mg by mouth twice a day for anticoagulation was initiated supporting. 13. Transfer orders placed to [facility] for cardiac stepdown unit. 14. Discharge planning is in place, anticipate discharge home with home health care in the next 48 hours. 15. More recommendations to follow based on patient's clinical course. Time with Patient: Greater than 30
[2022-03-21] MEDS: ASPIRIN 81 MG PO SCH (08:37)
[2022-03-21] MEDS: MULTIVITAMINS, THERA 1 EACH TAB PO SCH (08:37)
[2022-03-21] MEDS: APIXABAN 5 MG TAB PO SCH ×2 (08:37→20:34)
[2022-03-21] MEDS: METOPROLOL TARTRATE 25 MG TAB PO SCH ×2 (08:37→20:34)
[2022-03-21] MEDS: MUPIROCIN 2% OINT 22 GM TUBE NASAL SCH (08:37)
--- NOTE | 2022-03-21 11:33 | P.PN ---
Subjective Progress Note Date: 03/21/22 On 03/19/2022, the patient is postop day #1. The patient was seen yesterday in intensive care unit postoperatively and the patient had a relatively uneventful postoperative course. The patient is post 3 vessel bypass surgery. The patient was weaned off the mechanical ventilator and the patient was extubated without any major difficulties. Immediately after she arrived from the operating room, the patient has issues with low cardiac output. The patient was placed on dopamine at 5 mcg/kg/m. Accordingly, the cardiac output improved and the patient was able to wean off the mechanical ventilator without any major difficulties. The patient also was on Catapres which were discontinued. Subsequently, the patient was extubated and she is currently on oxygen at 5 L per minute nasal cannula. She is using the incentive spirometer and she is pulling approximately 8000. Chest tubes are still in place. The mediastinal chest tubes and the left pleural chest tubes have also collectively produced 290 mL over the past 8 hours of 500 mL over the past 24 hours. The chest x-ray showing some atelectatic change in lung bases and postop surgical changes. The current cardiac output is at 4.6 with an index of 2.1. The patient is going to atrial fibrillation. The patient was given amiodarone bolus and started on loading for maintenance. She is still in atrial fibrillation. She is trying to convert on and off into sinus rhythm. She is on an insulin drip at 5.5 units an hour. The WBC count at 17.0 with a hemoglobin of 10.4 and a platelet count of 90. BUN is a 50 with a creatinine of 0.6 and a bicarb of 21 with a sodium level of 135. The patient is awake and alert. No specific complaints otherwise for now. Dopamine is weaned down to 3 mcg/kg/m. Urine operas adequate for now. 03/20/2022, the patient is being seen for a follow-up. The patient is calm and comfortable and she is on oxygen at 2 L and she is using the incentive spirometer. A chest x-ray showing small right-sided and left-sided pleural effusion. Chest tubes are to be removed today. The patient went into atrial tachycardia with possibly some episodes of atrial fibrillation. The patient was given amiodarone yesterday and currently she is off amiodarone. She is taking metoprolol 12.5 mg twice a day. AV pacemaker wires are removed. She was able to bring in her CPAP and she is using the CPAP which is an APAP mode pressure minimum of 5 and a maximum of 20 and she is extremity successful and her AHI is down to 0.9 while on treatment. The patient has a white cell count of 12.1 with a hemoglobin of 9.7 and a platelet count of 75. BUN 11 his creatinine is 0.63. No other significant events overnight. She is using the incentive spirometer. She is pulling approximately thousand. Urine operas adequate. No other significant events overnight. The chest and ongoing tobacco removed today. As far as a blood sugar control, the patient's blood sugar control is adequate for now. The patient is currently on sliding scale insulin coverage and insulin drip will be discontinued On the 2021, the patient is on room air oxygen. She is currently postop day #3. Doing extremely well. Chest tubes have been removed. Epicardial leads and also removed. Her cardiac rhythm is sinus for now. She remains on metoprolol at a dose of 25 mg by mouth twice a day. She has been also on a combination of aspirin and Plavix. Using incentive spirometer. Sternum is stable at 15 and intact. Pain is under adequate control. The white cell count at 12.1 with a hemoglobin of 10.7 and a platelet count of 96. BUN is at 13 with a creatinine of 0.68. No altered mentation. No focal neurological deficit. The condition is stable. Objective - Vital Signs Vital signs: Vital Signs Temp 98.7 F 03/21/22 04:00 Pulse 81 03/21/22 10:00 Resp 68 H 03/21/22 10:00 BP 138/65 03/21/22 10:00 Pulse Ox 93 L 03/21/22 10:00 FiO2 50 03/18/22 20:27 Intake & Output 03/20/22 03/21/22 03/21/22 18:59 06:59 18:59 Intake Total 614.739 660 240 Output Total 2682 920 3832 Balance -1310.261 60 -860 Weight 120.9 kg 119.6 kg Intake: IV 124 CO/CI 20 Lactated Ringers 1,000 ml 80 @ 20 mls/hr IV .Q24H [facility] Rx#:[id number] Pressure bags 24 Intake, IV Titration 10.739 Amount Insulin Regular 100 unit 10.739 In Sodium Chloride 0.9% 100 ml @ Per Protocol IV .Q0M [facility] Rx#:[id number] Oral 480 660 240 Output: Chest Tube Drainage 80 Mediastinal/Left Pleural 80 Urine 2881 343 1091 Other: Voiding Method Indwelling Catheter Bedside Commode # Voids 1 ABP, PAP, CO, CI - Last Documented Arterial Blood Pressure 149/58 Pulmonary Artery Pressure 33/9 Cardiac Output 6.1 Cardiac Index 2.7 - Exam CONSTITUTIONAL: Sitting up to the bedside chair in the intensive care unit, appears comfortable, cooperative, no apparent acute distress. HEENT: Neck is supple, no JVD, no lymphadenopathy. RESPIRATORY: Lungs sounds essentially clear throughout, diminished to his bilateral bases. Respirations are symmetrical and nonlabored. Currently on room air with oxygen saturations 94%. Able to achieve 750 mL on incentive spirometry. Strong cough. CARDIOVASCULAR: Regular rhythm and rate. S1 and S2 present, negative for S3, gallop or murmur. Sternum is stable. Palpable peripheral pulses bilaterally, +1 edema to her bilateral lower extremities. No calf pain or tenderness noted. Heart hugger in place with patient demonstrating appropriate use. Knee-high CARLITOS hose and sequential compression devices in place to his bilateral lower ex tremities. Bedside telemetry showing normal sinus rhythm, heart rate 84 bpm. GASTROINTESTINAL: Abdomen soft, nontender, nondistended. Active bowel sounds present 4 quadrants. Tolerating diet. Passing flatus. No guarding or rigidity. GENITOURINARY: Continues to void. Urine output 400 mL in the last 8 hours. INTEGUMENTARY: Skin is warm and dry with no evidence of clubbing or cyanosis. Midline sternal incision clean dry and well approximated, covered with dry intact dressing. Left lower extremity EVH site well approximated without redness or drainage. Left arm radial artery harvest sites clean, dry and approximated. No drainage or redness is present. NEUROLOGIC: Cranial nerves II through XII intact. No focal deficits. MUSKULOSKELETAL: Able to move all extremities, strength equal bilaterally. PSYCHIATRIC: Alert and oriented to person place and time, appropriate affect, intact judgment and insight. - Labs CBC & Chem 7: 03/21/22 06:31 03/21/22 06:31 Labs: Abnormal Lab Results - Last 24 Hours (Table) 03/20/22 03/20/22 03/20/22 Range/Units 03:45 12:16 16:49 WBC (3.8-10.6) k/uL RBC (3.80-5.40) m/uL Hgb (11.4-16.0) gm/dL Hct (34.0-46.0) % Plt Count (150-450) k/uL Neutrophils # (1.3-7.7) k/uL Glucose (74-99) mg/dL POC Glucose (mg/dL) 133 H 176 H (70-110) mg/dL Hemoglobin A1c 6.1 H (0.0-6.0) % Total Bilirubin (0.2-1.3) mg/dL Total Protein (6.3-8.2) g/dL 03/20/22 03/20/22 03/21/22 Range/Units 18:12 21:20 06:31 WBC 12.1 H (3.8-10.6) k/uL RBC 3.35 L (3.80-5.40) m/uL Hgb 10.7 L (11.4-16.0) gm/dL Hct 32.2 L (34.0-46.0) % Plt Count 96 L (150-450) k/uL Neutrophils # 9.9 H (1.3-7.7) k/uL Glucose (74-99) mg/dL POC Glucose (mg/dL) 159 H 166 H (70-110) mg/dL Hemoglobin A1c (0.0-6.0) % Total Bilirubin (0.2-1.3) mg/dL Total Protein (6.3-8.2) g/dL 03/21/22 03/21/22 Range/Units 06:31 06:57 WBC (3.8-10.6) k/uL RBC (3.80-5.40) m/uL Hgb (11.4-16.0) gm/dL Hct (34.0-46.0) % Plt Count (150-450) k/uL Neutrophils # (1.3-7.7) k/uL Glucose 143 H (74-99) mg/dL POC Glucose (mg/dL) 148 H (70-110) mg/dL Hemoglobin A1c (0.0-6.0) % Total Bilirubin 1.8 H (0.2-1.3) mg/dL Total Protein 5.7 L (6.3-8.2) g/dL Assessment and Plan Assessment: Unstable angina in a patient found to have significant left main disease and had undergone coronary artery bypass grafting 3 without RUBIN to the LAD, left radial artery to the OM, saphenous vein graft to the PDA. Postoperative day #3. The patient underwent event vessel bypass surgery. Acute hypoxemic respiratory failure, expected outcome of surgery, currently on weaned off the mechanical ventilator and the patient is extubated and the patient is currently on RA oxygen by nasal cannula the Bronson-My catheter was removed. The patient would have the chest tubes removed today. Chest x-ray showing small bilateral pleural effusions. Episodes of atrial fibrillation/atrial tachycardia and the patient is currently loaded with amiodarone off amiodarone and the patient is currently on metoprolol History of coronary artery disease with previous PCI to the RCA in 2013 Morbid obesity Hypertension Hyperlipidemia Gastroesophageal reflux disease Anxiety Remote history of pulmonary embolism Lifelong nonsmoker Obstructive sleep apnea currently on APAP machine. Plan: Continue using the incentive spirometer Lasix 20 mg a push 1 Morning chest x-ray was noted Bronson-My catheter has been removed Chest tubes removed Insulin drip to be discontinued Sliding-scale insulin coverage Epicardial pacemaker wires have been removed stone removed Continue aspirin, Plavix and metoprolol has been adjusted to 25 mg by mouth twice a day Condition is stable and will continue to follow. The patient is also using her own CPAP unit. Repeat chest x-ray in the morning the patient on a combination of aspirin and Plavix and the patient will also be gradually weaned off the dopamine
[2022-03-21 11:46] LABS: Glucose,Whole Blood 130 mg/dL (70-110)
--- NOTE | 2022-03-21 12:53 | P.PN ---
Subjective HISTORY OF PRESENTING ILLNESS Patient is pleasant 76-year-old female with history of CAD status post remote PCI, hypertension, hyperlipidemia, newly diagnosed atrial fibrillation. She had presented for increasing episodes of dyspnea with fairly minimal exertion and therefore underwent outpatient heart catheterization yesterday. Catheterization showed critical left main stenosis and underwent urgent bypass with RUBIN to LAD, left radial to OM, SVG to PDA as well as Jha-Maze pulmonary vein isolation and left atrial appendage exclusion. 03/19 Patient seen and examined. She denies any chest pain or pressure. She admits to some discomfort around the sternotomy. Dopamine was decreased from 5-3. She did have occasional mild bradycardia however heart rates have remained in the 60s to 90s. She has intermittently been going into atrial fibrillation and has been on amiodarone drip currently at 0.5. Cardiac index varying from 1.7 up to 2.0 today. Blood work this morning shows white blood cell count 13.9, hemoglobin 10.0, creatinine 0.6, albumin 3.7. 03/21 Patient seen and examined. Patient doing much better today. Went for a walk without too much difficulty. Still some mild dyspnea. Good appetite. Blood pressures well controlled. Remains in sinus rhythm. PHYSICAL EXAMINATION Vital signs reviewed. CONSTITUTIONAL: No apparent distress. HEENT: Head is normocephalic. Pupils are equal, round. Sclerae anicteric. Mucous membranes of the mouth are moist. No JVD. No carotid bruit. CHEST EXAMINATION: Lungs are clear to auscultation. No chest wall tenderness is noted on palpation or with deep breathing. HEART EXAMINATION: Irregular rate and rhythm. S1, S2 heard. No murmurs, gallops or rub. ABDOMEN: Soft, nontender. Positive bowel sounds. EXTREMITIES: 2+ peripheral pulses, no lower extremity edema and no calf tenderness. NEUROLOGIC EXAMINATION: Patient is awake, alert and oriented x3. ASSESSMENT 1. CAD with prior history of PCI, critical left main stenosis status post 3 vessel CABG 03/18 2. Unstable angina 3. Hypertension 4. Newly diagnosed atrial fibrillation, currently in and out of A. fib and currently in sinus rhythm 5. Mild postoperative bradycardia, may be related to vagal response 6. Mild anemia PLAN Eliquis was started today. Continue with current regimen. Appears to be progressing well. Objective - Vital Signs Vital signs: Vital Signs Temp 98.4 F 03/21/22 12:00 Pulse 78 03/21/22 11:00 Resp 18 03/21/22 12:00 BP 123/77 03/21/22 12:00 Pulse Ox 93 L 03/21/22 12:00 FiO2 50 03/18/22 20:27 Intake & Output 03/20/22 03/21/22 03/21/22 18:59 06:59 18:59 Intake Total 614.739 660 240 Output Total 4811 795 8637 Balance -1310.261 60 -860 Weight 120.9 kg 119.6 kg Intake: IV 124 CO/CI 20 Lactated Ringers 1,000 ml 80 @ 20 mls/hr IV .Q24H [facility] Rx#:[id number] Pressure bags 24 Intake, IV Titration 10.739 Amount Insulin Regular 100 unit 10.739 In Sodium Chloride 0.9% 100 ml @ Per Protocol IV .Q0M [facility] Rx#:[id number] Oral 480 660 240 Output: Chest Tube Drainage 80 Mediastinal/Left Pleural 80 Urine 1218 648 4876 Other: Voiding Method Indwelling Catheter Bedside Commode # Voids 1 ABP, PAP, CO, CI - Last Documented Arterial Blood Pressure 149/58 Pulmonary Artery Pressure 33/9 Cardiac Output 6.1 Cardiac Index 2.7 - Labs CBC & Chem 7: 03/21/22 06:31 03/21/22 06:31 Labs: Abnormal Lab Results - Last 24 Hours (Table) 03/20/22 03/20/22 03/20/22 Range/Units 03:45 16:49 18:12 WBC (3.8-10.6) k/uL RBC (3.80-5.40) m/uL Hgb (11.4-16.0) gm/dL Hct (34.0-46.0) % Plt Count (150-450) k/uL Neutrophils # (1.3-7.7) k/uL Glucose (74-99) mg/dL POC Glucose (mg/dL) 176 H 159 H (70-110) mg/dL Hemoglobin A1c 6.1 H (0.0-6.0) % Total Bilirubin (0.2-1.3) mg/dL Total Protein (6.3-8.2) g/dL 03/20/22 03/21/22 03/21/22 Range/Units 21:20 06:31 06:31 WBC 12.1 H (3.8-10.6) k/uL RBC 3.35 L (3.80-5.40) m/uL Hgb 10.7 L (11.4-16.0) gm/dL Hct 32.2 L (34.0-46.0) % Plt Count 96 L (150-450) k/uL Neutrophils # 9.9 H (1.3-7.7) k/uL Glucose 143 H (74-99) mg/dL POC Glucose (mg/dL) 166 H (70-110) mg/dL Hemoglobin A1c (0.0-6.0) % Total Bilirubin 1.8 H (0.2-1.3) mg/dL Total Protein 5.7 L (6.3-8.2) g/dL 03/21/22 03/21/22 Range/Units 06:57 11:44 WBC (3.8-10.6) k/uL RBC (3.80-5.40) m/uL Hgb (11.4-16.0) gm/dL Hct (34.0-46.0) % Plt Count (150-450) k/uL Neutrophils # (1.3-7.7) k/uL Glucose (74-99) mg/dL POC Glucose (mg/dL) 148 H 130 H (70-110) mg/dL Hemoglobin A1c (0.0-6.0) % Total Bilirubin (0.2-1.3) mg/dL Total Protein (6.3-8.2) g/dL
[2022-03-21 16:19] LABS: Glucose,Whole Blood 134 mg/dL (70-110)
[2022-03-21] MEDS: amLODIPine 5 MG TAB PO SCH (16:41)
--- NOTE | 2022-03-21 18:38 | P.PN ---
Subjective This is a pleasant 76 years old female with multiple medical problems as below including Coronary Artery Disease, Hyperlipidemia, Hypertension, Pulmonary Embolus (PE) not on anticoagulation, , Sleep Apnea/CPAP/BIPAP Patient was admitted for his unstable angina and she underwent coronary artery bypass grafting. Today is postoperative day #1 Patient is sitting in chair. Tomorrow, no chest pain or dyspnea, no diarrhea or abdominal pain or vomiting. Not shown WBC 13.9. Hemoglobin 10.4. BMP and liver enzymes are unremarkable. Hemoglobin A1c is 6.2 Vitals stable, temperature 99.7, she is saturating 96% on 3 L oxygen via nasal cannula Ejection fraction: 40-45% Chest x-ray: Mild pulmonary vascular congestion, no consolidation. Carotid duplex: 50% stenosis 03/20/2022 Patient with no new complaints, no chest pain or dyspnea remains in the ICU monitor closely. Blood pressure stable but she developing low-grade fever of 100.2 today, WBC tr ending down 13 point plus down to 12,000. Hemoglobin 9.7 Patient is an combination of aspirin and Plavix and low-dose metoprolol Eliquis admitted today for new onset A. 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 Ejection fraction 40-45%. Chest x-ray showing bibasilar atelectasis. 03/21/2022 patient looks today, sitting up in chair She denies chest pain or dyspnea She complained from her coughing and lack of sleep and Robitussin and melatonin when necessary prescribed for her. She agrees with the plan. Vitals stable. The ellipse E 12,000, hemoglobin 10 Remains on aspirin and Plavix and surgery primary team started patient on Eliquis blood thinner Objective - Vital Signs Vital signs: Vital Signs Temp 97.6 F 03/21/22 16:00 Pulse 87 03/21/22 16:05 Resp 16 03/21/22 16:00 BP 136/61 03/21/22 16:00 Pulse Ox 95 03/21/22 16:00 FiO2 50 03/18/22 20:27 Intake & Output 03/20/22 03/21/22 03/21/22 18:59 06:59 18:59 Intake Total 614.739 660 600 Output Total 9506 159 6022 Balance -1310.261 60 -800 Weight 120.9 kg 119.6 kg Intake: IV 124 CO/CI 20 Lactated Ringers 1,000 ml 80 @ 20 mls/hr IV .Q24H [facility] Rx#:[id number] Pressure bags 24 Intake, IV Titration 10.739 Amount Insulin Regular 100 unit 10.739 In Sodium Chloride 0.9% 100 ml @ Per Protocol IV .Q0M MAYANK Rx#:[id number] Oral 480 660 600 Output: Chest Tube Drainage 80 Mediastinal/Left Pleural 80 Urine 1607 274 6527 Other: Voiding Method Indwelling Catheter Bedside Commode # Voids 1 # Bowel Movements 1 ABP, PAP, CO, CI - Last Documented Arterial Blood Pressure 149/58 Pulmonary Artery Pressure 33/9 Cardiac Output 6.1 Cardiac Index 2.7 - Exam GENERAL: The patient is alert and oriented x3, not in any acute distress. Well developed, well nourished. HEENT: Pupils are round and equally reacting to light. EOMI. No scleral icterus. No conjunctival pallor. Normocephalic, atraumatic. No pharyngeal erythema. No thyromegaly. CARDIOVASCULAR: S1 and S2 present. No murmurs, rubs, or gallops. PULMONARY: Chest is clear to auscultation, no wheezing or crackles. ABDOMEN: Soft, nontender, nondistended, normoactive bowel sounds. No palpable organomegaly. MUSCULOSKELETAL: No joint swelling or deformity. EXTREMITIES: No cyanosis, clubbing, or pedal edema. NEUROLOGICAL: Gross neurological examination did not reveal any focal deficits. SKIN: No rashes. no petechiae. - Labs CBC & Chem 7: 03/21/22 06:31 03/21/22 06:31 Labs: Abnormal Lab Results - Last 24 Hours (Table) 03/20/22 03/20/22 03/21/22 Range/Units 18:12 21:20 06:31 WBC 12.1 H (3.8-10.6) k/uL RBC 3.35 L (3.80-5.40) m/uL Hgb 10.7 L (11.4-16.0) gm/dL Hct 32.2 L (34.0-46.0) % Plt Count 96 L (150-450) k/uL Neutrophils # 9.9 H (1.3-7.7) k/uL Glucose (74-99) mg/dL POC Glucose (mg/dL) 159 H 166 H (70-110) mg/dL Total Bilirubin (0.2-1.3) mg/dL Total Protein (6.3-8.2) g/dL 03/21/22 03/21/22 03/21/22 Range/Units 06:31 06:57 11:44 WBC (3.8-10.6) k/uL RBC (3.80-5.40) m/uL Hgb (11.4-16.0) gm/dL Hct (34.0-46.0) % Plt Count (150-450) k/uL Neutrophils # (1.3-7.7) k/uL Glucose 143 H (74-99) mg/dL POC Glucose (mg/dL) 148 H 130 H (70-110) mg/dL Total Bilirubin 1.8 H (0.2-1.3) mg/dL Total Protein 5.7 L (6.3-8.2) g/dL 03/21/22 Range/Units 16:18 WBC (3.8-10.6) k/uL RBC (3.80-5.40) m/uL Hgb (11.4-16.0) gm/dL Hct (34.0-46.0) % Plt Count (150-450) k/uL Neutrophils # (1.3-7.7) k/uL Glucose (74-99) mg/dL POC Glucose (mg/dL) 134 H (70-110) mg/dL Total Bilirubin (0.2-1.3) mg/dL Total Protein (6.3-8.2) g/dL Assessment and Plan Assessment: unstable angina Status post coronary artery bypass grafting 3 with RUBIN to LAD Paroxysmal atrial fibrillation with heart rate controlled Sleep Apnea/CPAP/BIPA hypertensio leukocytosis, most likely reactive Postop anemia expected Hyperlipidemia History of pulmonary embolism Obesity with BMI of 41 Mild cardiomyopathy Plan: Continue with aspirin and Plavix. Also patient started on liquids anticoagulation per cardiolosurgery team Keep monitoring labs includinghemoglobin Labs and medication were reviewed.. Continue same treatment. Continue with symptomatic treatment. Resume home medication. Monitor labs and vitals. DVT and GI prophylaxis. Further recommendations as per clinical course of the patient DVT prophylaxis: Deferred to surgery team GI Prophylaxis: Ppi Prognosis is guarded
[2022-03-21] MEDS: SENNOSIDES-DOCUSATE SODIUM 1 EACH TAB PO SCH (20:34)
[2022-03-21] MEDS: ATORVASTATIN 40 MG TAB PO SCH (20:34)
[2022-03-21 20:39] LABS: Glucose,Whole Blood 147 mg/dL (70-110)
[2022-03-21] MEDS: MELATONIN 5 MG TABLET PO PRN (22:17)
[2022-03-22 04:20] LABS: Basophils % (A) 0 %; Eosinophils # (A) 0.1 k/uL (0-0.7); Eosinophils % (A) 1 %; HCT 30.4 % (34.0-46.0); HGB 10.3 gm/dL (11.4-16.0); Lymphocytes # (A) 2.6 k/uL (1.0-4.8); Lymphocytes % (A) 25 %; MCH 32.3 pg (25.0-35.0); MCHC 33.8 g/dL (31.0-37.0); MCV 95.6 fL (80.0-100.0); Mean Platelet Volume 13.2; Monocytes # (A) 0.6 k/uL (0-1.0); Monocytes % (A) 6 %; Neutrophils # (A) 6.9 k/uL (1.3-7.7); Neutrophils % (A) 66 %; RBC 3.18 m/uL (3.80-5.40); RDW 12.5 % (11.5-15.5); WBC 10.5 k/uL (3.8-10.6)
[2022-03-22 04:31] LABS: African American GFR (CKD) >90 (>60 ml/min/1.73 sqM); Anion Gap 3 mmol/L; Blood Urea Nitrogen 16 mg/dL (7-17); Calcium 8.2 mg/dL (8.4-10.2); Carbon Dioxide 25 mmol/L (22-30); Chloride 107 mmol/L (98-107); Glucose 124 mg/dL (74-99); Non-African American GFR(CKD) 88 (>60 ml/min/1.73 sqM); Potassium 3.7 mmol/L (3.5-5.1); Sodium 135 mmol/L (137-145)
[2022-03-22 04:51] LABS: Platelet Count 97 k/uL (150-450)
[2022-03-22] MEDS ORDERED: POTASSIUM CHLORIDE ER 20 MEQ TAB.ER PO SCH ×2 (05:00→08:00)
[2022-03-22 06:27] LABS: Glucose,Whole Blood 153 mg/dL (70-110)
[2022-03-22] MEDS: MUPIROCIN 2% OINT 22 GM TUBE NASAL SCH (06:29)
[2022-03-22] MEDS: INSULIN ASPART (NovoLOG) 100 UNIT/ML VIAL SQ SCH ×4 (06:31→21:47)
--- NOTE | 2022-03-22 07:12 | XR ---
EXAMINATION TYPE: XR chest 1V portable DATE OF EXAM: 03/22/2022 COMPARISON: 03/21/2022 HISTORY: Postcardiac surgery, CABG TECHNIQUE: Single frontal view of the chest is obtained. FINDINGS: Postsurgical changes consistent with CABG surgery. There are small bilateral pleural effusions, unchanged compared to previous. The mild atelectasis in the left lung has cleared in the interval. Currently there is no airspace consolidation or atelectasi s. There is no pneumothorax. The osseous structures are intact IMPRESSION: Post cardiac surgery changes. There has been interval clearing of the atelectasis in the left lung base. There are persistent small pleural effusions.
[2022-03-22] MEDS ORDERED: Potassium Replacement Protocol 1 EACH MISC MISCELLANE PRN (07:43)
[2022-03-22] MEDS: IPRATROPIUM-ALBUTEROL 3 ML NEB INHALATION SCH ×4 (07:43→20:08)
[2022-03-22] MEDS: MULTIVITAMINS, THERA 1 EACH TAB PO SCH (08:15)
[2022-03-22] MEDS: ASPIRIN 81 MG PO SCH (08:16)
[2022-03-22] MEDS: METOPROLOL TARTRATE 25 MG TAB PO SCH ×2 (08:16→21:14)
[2022-03-22] MEDS: APIXABAN 5 MG TAB PO SCH ×2 (08:16→21:14)
[2022-03-22] MEDS ORDERED: FUROSEMIDE 10 MG/ML 2 ML VIAL IV ONE (08:19)
[2022-03-22] MEDS ORDERED: POTASSIUM CHLORIDE ER 20 MEQ TAB.ER PO STA (08:19)
--- NOTE | 2022-03-22 08:27 | P.PN ---
Subjective This is a pleasant 76 years old female with multiple medical problems as below including Coronary Artery Disease, Hyperlipidemia, Hypertension, Pulmonary Embolus (PE) not on anticoagulation, , Sleep Apnea/CPAP/BIPAP Patient was admitted for his unstable angina and she underwent coronary artery bypass grafting. Today is postoperative day #1 Patient is sitting in chair. Tomorrow, no chest pain or dyspnea, no diarrhea or abdominal pain or vomiting. Not shown WBC 13.9. Hemoglobin 10.4. BMP and liver enzymes are unremarkable. Hemoglobin A1c is 6.2 Vitals stable, temperature 99.7, she is saturating 96% on 3 L oxygen via nasal cannula Ejection fraction: 40-45% Chest x-ray: Mild pulmonary vascular congestion, no consolidation. Carotid duplex: 50% stenosis 03/20/2022 Patient with no new complaints, no chest pain or dyspnea remains in the ICU monitor closely. Blood pressure stable but she developing low-grade fever of 100.2 today, WBC tr ending down 13 point plus down to 12,000. Hemoglobin 9.7 Patient is an combination of aspirin and Plavix and low-dose metoprolol Eliquis admitted today for new onset A. 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 Ejection fraction 40-45%. Chest x-ray showing bibasilar atelectasis. 03/21/2022 patient looks today, sitting up in chair She denies chest pain or dyspnea She complained from her coughing and lack of sleep and Robitussin and melatonin when necessary prescribed for her. She agrees with the plan. Vitals stable. The ellipse E 12,000, hemoglobin 10 Remains on aspirin and Plavix and surgery primary team started patient on Eliquis blood thinner 03/22/2022 Patient clinically looks similar to yesterday. No chest pain or dyspnea. However patient have some tachypnea especially when talking. She has less coughing. She slipped on and off last night and she wants to keep the sleeping pill. WBC is down to 10.5, no fever. Rest of vitals and labs are stable. Aspirin, Plavix and Eliquis and metoprolol lisinopril. Objective - Vital Signs Vital signs: Vital Signs Temp 98 F 03/22/22 04:00 Pulse 83 03/22/22 08:00 Resp 22 03/22/22 08:00 BP 126/87 03/22/22 08:00 Pulse Ox 92 L 03/22/22 08:00 FiO2 50 03/18/22 20:27 Intake & Output 03/21/22 03/22/22 03/22/22 18:59 06:59 18:59 Intake Total 600 720 Output Total 1400 700 Balance -800 20 Weight 118.8 kg Intake: Oral 600 720 Output: Urine 1400 700 Other: Voiding Method Bedside Commode Bedside Commode Bedside Commode # Voids 1 # Bowel Movements 1 ABP, PAP, CO, CI - Last Documented Arterial Blood Pressure 149/58 Pulmonary Artery Pressure 33/9 Cardiac Output 6.1 Cardiac Index 2.7 - Exam GENERAL: The patient is alert and oriented x3, not in any acute distress. Well developed, well nourished. HEENT: Pupils are round and equally reacting to light. EOMI. No scleral icterus. No conjunctival pallor. Normocephalic, atraumatic. No pharyngeal erythema. No thyromegaly. CARDIOVASCULAR: S1 and S2 present. No murmurs, rubs, or gallops. PULMONARY: Chest is clear to auscultation, no wheezing or crackles. ABDOMEN: Soft, nontender, nondistended, normoactive bowel sounds. No palpable organomegaly. MUSCULOSKELETAL: No joint swelling or deformity. EXTREMITIES: No cyanosis, clubbing, or pedal edema. NEUROLOGICAL: Gross neurological examination did not reveal any focal deficits. SKIN: No rashes. no petechiae. - Labs CBC & Chem 7: 03/22/22 03:49 03/22/22 03:49 Labs: Abnormal Lab Results - Last 24 Hours (Table) 03/21/22 03/21/22 03/21/22 Range/Units 11:44 16:18 20:37 RBC (3.80-5.40) m/uL Hgb (11.4-16.0) gm/dL Hct (34.0-46.0) % Plt Count (150-450) k/uL Sodium (137-145) mmol/L Glucose (74-99) mg/dL POC Glucose (mg/dL) 130 H 134 H 147 H (70-110) mg/dL Calcium (8.4-10.2) mg/dL 03/22/22 03/22/22 03/22/22 Range/Units 03:49 03:49 06:26 RBC 3.18 L (3.80-5.40) m/uL Hgb 10.3 L (11.4-16.0) gm/dL Hct 30.4 L (34.0-46.0) % Plt Count 97 L (150-450) k/uL Sodium 135 L (137-145) mmol/L Glucose 124 H (74-99) mg/dL POC Glucose (mg/dL) 153 H (70-110) mg/dL Calcium 8.2 L (8.4-10.2) mg/dL Assessment and Plan Assessment: unstable angina Status post coronary artery bypass grafting 3 with RUBIN to LAD Paroxysmal atrial fibrillation with heart rate controlled Sleep Apnea/CPAP/BIPA hypertensio leukocytosis, most likely reactive Postop anemia expected Hyperlipidemia History of pulmonary embolism Obesity with BMI of 41 Mild cardiomyopathy Plan: Continue with aspirin and Plavix. Also patient started on liquids anticoagulat ion per cardiolosurgery team Keep monitoring labs includinghemoglobin Labs and medication were reviewed.. Continue same treatment. Continue with symptomatic treatment. Resume home medication. Monitor labs and vitals. DVT and GI prophylaxis. Further recommendations as per clinical course of the patient DVT prophylaxis: Deferred to surgery team GI Prophylaxis: Ppi Prognosis is guarded
--- NOTE | 2022-03-22 08:56 | P.PN ---
Subjective Progress Note Date: 03/22/22 Principal diagnosis: Coronary artery disease, unstable angina, paroxysmal atrial fibrillation. Past medical history significant for coronary artery disease with myocardial infarct ion in 2013, status post PCI to the RCA, hypertension, hyperlipidemia, new onset slow atrial fibrillation, remote history of pulmonary embolism, obstructive sleep apnea with home CPAP use, remote history of pneumonia, lifetime nonsmoker, morbid obesity with a BMI of 41.0 kg/m, borderline diabetic with a preoperative hemoglobin A1c 6.2% and family history of premature coronary artery disease with her father having multiple myocardial infarctions before the age of 60. POD #4 off-pump coronary artery bypass grafting 3 with RUBIN to LAD, left radial artery graft to obtuse marginal, saphenous vein graft to posterior descending coronary artery, endovascular vein harvest, endovascular radial artery harvest, modified Jha maze with bilateral pulmonary vein isolation and exclusion of the left atrial appendage. Postoperative acute blood loss anemia, expected secondary to hemodilution. The patient was seen and examined today 03/22/2022 at her bedside in the intensive care unit. She denies any complaints of pain or shortness of breath at this time. She does report that she does get somewhat short of breath with activity. Oxygen saturation to our 95% on room air and she is achieving 1000- 1250 mL on her incentive spirometry. Bedside telemetry showing normal sinus rhythm heart rate 81 BPM, no further episodes of atrial fibrillation reported. She remains hemodynamically stable and is currently on no inotropic pressor support. She was given Lasix 20 mg IV 1 yesterday with good diuresis. Laboratory results this morning show a WBC count 10.5, hemoglobin 10.3, hematocrit 30.4, platelets 97, sodium 135, potassium 3.7, BUN 16, creatinine 0.63, glucose 124, calcium 8.2 and magnesium 2.0. Chest x-ray was reviewed. She has been afebrile the last 24 hours. The patient reports she has been up ambulating in the intensive care unit in all way 3 times yesterday with standby assistance from nursing and therapy staff and tolerated well. Objective - Vital Signs Vital signs: Vital Signs Temp 98 F 03/22/22 04:00 Pulse 83 03/22/22 08:00 Resp 22 03/22/22 08:00 BP 126/87 03/22/22 08:00 Pulse Ox 92 L 03/22/22 08:00 FiO2 50 03/18/22 20:27 Intake & Output 03/21/22 03/22/22 03/22/22 18:59 06:59 18:59 Intake Total 600 720 Output Total 1400 700 Balance -800 20 Weight 118.8 kg Intake: Oral 600 720 Output: Urine 1400 700 Other: Voiding Method Bedside Commode Bedside Commode Bedside Commode # Voids 1 # Bowel Movements 1 ABP, PAP, CO, CI - Last Documented Arterial Blood Pressure 149/58 Pulmonary Artery Pressure 33/9 Cardiac Output 6.1 Cardiac Index 2.7 - Exam CONSTITUTIONAL: Sitting up to the bedside chair in the intensive care unit, appears comfortable, cooperative, no apparent acute distress. HEENT: Neck is supple, no JVD, no lymphadenopathy. RESPIRATORY: Lungs sounds essentially clear throughout, diminished to her bilateral bases with few scattered crackles. Respirations are symmetrical and nonlabored. Currently on room air with oxygen saturations 95%. Able to achieve 5256-5608 mL on incentive spirometry. Strong cough. CARDIOVASCULAR: Regular rhythm and rate. S1 and S2 present, negative for S3, gallop or murmur. Sternum is stable. Palpable peripheral pulses bilaterally, +1 edema to her bilateral lower extremities. No calf pain or tenderness noted. Heart hugger in place with patient demonstrating appropriate use. Knee-high CARLITOS hose and sequential compression devices in place to his bilateral lower extremities. Bedside telemetry showing normal sinus rhythm, heart rate 81 bpm. GASTROINTESTINAL: Abdomen soft, nontender, nondistended. Active bowel sounds present 4 quadrants. Tolerating diet. Passing flatus. No guarding or rigidity. GENITOURINARY: Continues to void. Urine output 700 mL in the last 8 hours. INTEGUMENTARY: Skin is warm and dry with no evidence of clubbing or cyanosis. Midline sternal incision clean dry and well approximated, covered with dry intact dressing. Left lower extremity EVH site well approximated without redness or drainage. Left arm radial artery harvest sites clean, dry and elaine roximated. No drainage or redness is present. NEUROLOGIC: Cranial nerves II through XII intact. No focal deficits. MUSKULOSKELETAL: Able to move all extremities, strength equal bilaterally. PSYCHIATRIC: Alert and oriented to person place and time, appropriate affect, intact judgment and insight. - Allied health notes Allied health notes reviewed: nursing - Labs CBC & Chem 7: 03/22/22 03:49 03/22/22 03:49 Labs: Abnormal Lab Results - Last 24 Hours (Table) 03/21/22 03/21/22 03/21/22 Range/Units 11:44 16:18 20:37 RBC (3.80-5.40) m/uL Hgb (11.4-16.0) gm/dL Hct (34.0-46.0) % Plt Count (150-450) k/uL Sodium (137-145) mmol/L Glucose (74-99) mg/dL POC Glucose (mg/dL) 130 H 134 H 147 H (70-110) mg/dL Calcium (8.4-10.2) mg/dL 03/22/22 03/22/22 03/22/22 Range/Units 03:49 03:49 06:26 RBC 3.18 L (3.80-5.40) m/uL Hgb 10.3 L (11.4-16.0) gm/dL Hct 30.4 L (34.0-46.0) % Plt Count 97 L (150-450) k/uL Sodium 135 L (137-145) mmol/L Glucose 124 H (74-99) mg/dL POC Glucose (mg/dL) 153 H (70-110) mg/dL Calcium 8.2 L (8.4-10.2) mg/dL - Imaging and Cardiology Chest x-ray: report reviewed, image reviewed Assessment and Plan Assessment: 1. Coronary artery disease, status post three-vessel CABG 03/18/2022 2. Unstable angina 3. Paroxysmal atrial fibrillation, status post modified Jha maze with bilateral pulmonary vein isolation and exclusion of the left atrial appendage 4. History of coronary artery disease status post PCI to the right coronary artery in 2013 5. History of myocardial infarction in 2013 6. History of hypertension 7. History of hyperlipidemia, treated, cholesterol 155, LDL 84.6 8. Obstructive sleep apnea, with home CPAP use 9. Morbid obesity with BMI of 41.0 kg/m 10. Remote history of pneumonia 11. Borderline diabetic with a preoperative hemoglobin A1c 6.2% 12. Family history of premature coronary artery disease with her father having multiple myocardial infarctions before the age of 60 13. Lifetime nonsmoker 14. Third-degree heart block, resolved, currently normal sinus rhythm heart rate 84 BPM 15. Postoperative acute blood loss anemia, expected given hemodilution Plan: 1. Continue aspirin, statin, and beta sherry. Will increase metoprolol tartrate as tolerated with hold parameters. 2. Continue Amlodipine 5 mg by mouth daily at noon for radial artery spasm prophylaxis. 3. Encourage incentive spirometry use 10 times every hour while awake. Bronchodilators per pulmonology. 4. Increase activity, ambulate as tolerated. PT/OT/cardiac rehab following. 5. Will monitor daily labs and chest x-rays. Electrolyte replacement per protocol. 6. GI/DVT prophylaxis. 7. Pain control with current medication regimen. 8. Insulin management per internal medicine. Patient needs tight blood sugar control to prevent infection and promote healing. She is a borderline diabetic with a preoperative hemoglobin A1c of 6.2%. 9. Continue to record strict accurate I's and O's, May bladder scan every 6 hours and when necessary postvoid residual. Daily weights. 10. Daily shower. 11. Lasix 20 mg IV 1 now and potassium chloride 20 mEq by mouth 1 now. 12. Eliquis was 5 mg by mouth twice a day for anticoagulation was initiated supporting. 13. Transfer to [facility] for cardiac stepdown unit when bed available. 14. Discharge planning is in place, anticipate discharge home with home health care in the next 24 hours. 15. More recommendations to follow based on patient's clinical course. Time with Patient: Greater than 30
--- NOTE | 2022-03-22 10:21 | P.PN ---
Subjective HISTORY OF PRESENTING ILLNESS Patient is pleasant 76-year-old female with history of CAD status post remote PCI, hypertension, hyperlipidemia, newly diagnosed atrial fibrillation. She had presented for increasing episodes of dyspnea with fairly minimal exertion and therefore underwent outpatient heart catheterization yesterday. Catheterization showed critical left main stenosis and underwent urgent bypass with RUBIN to LAD, left radial to OM, SVG to PDA as well as Jha-Maze pulmonary vein isolation and left atrial appendage exclusion. 03/19 Patient seen and examined. She denies any chest pain or pressure. She admits to some discomfort around the sternotomy. Dopamine was decreased from 5-3. She did have occasional mild bradycardia however heart rates have remained in the 60s to 90s. She has intermittently been going into atrial fibrillation and has been on amiodarone drip currently at 0.5. Cardiac index varying from 1.7 up to 2.0 today. Blood work this morning shows white blood cell count 13.9, hemoglobin 10.0, creatinine 0.6, albumin 3.7. 03/21 Patient seen and examined. Patient doing much better today. Went for a walk without too much difficulty. Still some mild dyspnea. Good appetite. Blood pressures well controlled. Remains in sinus rhythm. 03/22 Patient seen and examined. Still not sleeping well. Still mildly fatigued. No chest pain or pressure. Has been able to walk the halls without difficulty. PHYSICAL EXAMINATION Vital signs reviewed. CONSTITUTIONAL: No apparent distress. HEENT: Head is normocephalic. Pupils are equal, round. Sclerae anicteric. Mucous membranes of the mouth are moist. No JVD. No carotid bruit. CHEST EXAMINATION: Lungs are clear to auscultation. No chest wall tenderness is noted on palpation or with deep breathing. HEART EXAMINATION: Irregular rate and rhythm. S1, S2 heard. No murmurs, gallops or rub. ABDOMEN: Soft, nontender. Positive bowel sounds. EXTREMITIES: 2+ peripheral pulses, no lower extremity edema and no calf tenderness. NEUROLOGIC EXAMINATION: Patient is awake, alert and oriented x3. ASSESSMENT 1. CAD with prior history of PCI, critical left main stenosis status post 3 vessel CABG 03/18 2. Unstable angina 3. Hypertension 4. Newly diagnosed atrial fibrillation, currently in and out of A. fib and currently in sinus rhythm 5. Mild postoperative bradycardia, may be related to vagal response 6. Mild anemia PLAN Continue with Eiquis, metoprolol, Norvasc. Appears stable for discharge from ICU. Appears to be progressing well. Objective - Vital Signs Vital signs: Vital Signs Temp 98 F 03/22/22 04:00 Pulse 83 03/22/22 08:00 Resp 22 03/22/22 08:00 BP 126/87 03/22/22 08:00 Pulse Ox 92 L 03/22/22 08:00 FiO2 50 03/18/22 20:27 Intake & Output 03/21/22 03/22/22 03/22/22 18:59 06:59 18:59 Intake Total 600 720 Output Total 1400 700 Balance -800 20 Weight 118.8 kg Intake: Oral 600 720 Output: Urine 1400 700 Other: Voiding Method Bedside Commode Bedside Commode Bedside Commode # Voids 1 # Bowel Movements 1 ABP, PAP, CO, CI - Last Documented Arterial Blood Pressure 149/58 Pulmonary Artery Pressure 33/9 Cardiac Output 6.1 Cardiac Index 2.7 - Labs CBC & Chem 7: 03/22/22 03:49 03/22/22 03:49 Labs: Abnormal Lab Results - Last 24 Hours (Table) 03/21/22 03/21/22 03/21/22 Range/Units 11:44 16:18 20:37 RBC (3.80-5.40) m/uL Hgb (11.4-16.0) gm/dL Hct (34.0-46.0) % Plt Count (150-450) k/uL Sodium (137-145) mmol/L Glucose (74-99) mg/dL POC Glucose (mg/dL) 130 H 134 H 147 H (70-110) mg/dL Calcium (8.4-10.2) mg/dL 03/22/22 03/22/22 03/22/22 Range/Units 03:49 03:49 06:26 RBC 3.18 L (3.80-5.40) m/uL Hgb 10.3 L (11.4-16.0) gm/dL Hct 30.4 L (34.0-46.0) % Plt Count 97 L (150-450) k/uL Sodium 135 L (137-145) mmol/L Glucose 124 H (74-99) mg/dL POC Glucose (mg/dL) 153 H (70-110) mg/dL Calcium 8.2 L (8.4-10.2) mg/dL
--- NOTE | 2022-03-22 11:09 | P.PN ---
Subjective Progress Note Date: 03/22/22 On 03/19/2022, the patient is postop day #1. The patient was seen yesterday in intensive care unit postoperatively and the patient had a relatively uneventful postoperative course. The patient is post 3 vessel bypass surgery. The patient was weaned off the mechanical ventilator and the patient was extubated without any major difficulties. Immediately after she arrived from the operating room, the patient has issues with low cardiac output. The patient was placed on dopamine at 5 mcg/kg/m. Accordingly, the cardiac output improved and the patient was able to wean off the mechanical ventilator without any major difficulties. The patient also was on Catapres which were discontinued. Subsequently, the patient was extubated and she is currently on oxygen at 5 L per minute nasal cannula. She is using the incentive spirometer and she is pulling approximately 8000. Chest tubes are still in place. The mediastinal chest tubes and the left pleural chest tubes have also collectively produced 290 mL over the past 8 hours of 500 mL over the past 24 hours. The chest x-ray showing some atelectatic change in lung bases and postop surgical changes. The current cardiac output is at 4.6 with an index of 2.1. The patient is going to atrial fibrillation. The patient was given amiodarone bolus and started on loading for maintenance. She is still in atrial fibrillation. She is trying to convert on and off into sinus rhythm. She is on an insulin drip at 5.5 units an hour. The WBC count at 17.0 with a hemoglobin of 10.4 and a platelet count of 90. BUN is a 50 with a creatinine of 0.6 and a bicarb of 21 with a sodium level of 135. The patient is awake and alert. No specific complaints otherwise for now. Dopamine is weaned down to 3 mcg/kg/m. Urine operas adequate for now. 03/20/2022, the patient is being seen for a follow-up. The patient is calm and comfortable and she is on oxygen at 2 L and she is using the incentive spirometer. A chest x-ray showing small right-sided and left-sided pleural effusion. Chest tubes are to be removed today. The patient went into atrial tachycardia with possibly some episodes of atrial fibrillation. The patient was given amiodarone yesterday and currently she is off amiodarone. She is taking metoprolol 12.5 mg twice a day. AV pacemaker wires are removed. She was able to bring in her CPAP and she is using the CPAP which is an APAP mode pressure minimum of 5 and a maximum of 20 and she is extremity successful and her AHI is down to 0.9 while on treatment. The patient has a white cell count of 12.1 with a hemoglobin of 9.7 and a platelet count of 75. BUN 11 his creatinine is 0.63. No other significant events overnight. She is using the incentive spirometer. She is pulling approximately thousand. Urine operas adequate. No other significant events overnight. The chest and ongoing tobacco removed today. As far as a blood sugar control, the patient's blood sugar control is adequate for now. The patient is currently on sliding scale insulin coverage and insulin drip will be discontinued On the 2021, the patient is on room air oxygen. She is currently postop day #3. Doing extremely well. Chest tubes have been removed. Epicardial leads and also removed. Her cardiac rhythm is sinus for now. She remains on metoprolol at a dose of 25 mg by mouth twice a day. She has been also on a combination of aspirin and Plavix. Using incentive spirometer. Sternum is stable at 15 and intact. Pain is under adequate control. The white cell count at 12.1 with a hemoglobin of 10.7 and a platelet count of 96. BUN is at 13 with a creatinine of 0.68. No altered mentation. No focal neurological deficit. The condition is stable. 03/22/2022, the patient is postop day #4. Doing well. No complaints. She is still on room air oxygen. The patient is on 20 of Lasix almost on a daily basis. The patient was given another dose of diuretics and she is almost getting diuretics on daily basis. The fluid balance is negative. Sodium is at 135, the white cell count is at 10.5 with a hemoglobin of 10.3. The chest x-ray from today is showing post thoracotomy changes and interval clearing of the lung atelectasis in the lung bases bilaterally. The patient otherwise is awake and alert. She denies having any significant complaints. No chest pain. Surgical one-sided dry clean and intact and the patient continues to use the incentive spirometer. Terms of itch of fibrillation, the patient was in and out of the A. fib and currently she is back into normal sinus rhythm. She remains on metoprolol and oral anticoagulation with Eliquis. Objective - Vital Signs Vital signs: Vital Signs Temp 98 F 03/22/22 04:00 Pulse 84 03/22/22 09:00 Resp 21 03/22/22 11:00 BP 132/67 03/22/22 11:00 Pulse Ox 96 03/22/22 11:00 FiO2 50 03/18/22 20:27 Intake & Output 03/21/22 03/22/22 03/22/22 18:59 06:59 18:59 Intake Total 600 720 240 Output Total 1400 700 800 Balance -800 20 -560 Weight 118.8 kg Intake: Oral 600 720 240 Output: Urine 1400 700 800 Other: Voiding Method Bedside Commode Bedside Commode Bedside Commode # Voids 1 # Bowel Movements 1 1 ABP, PAP, CO, CI - Last Documented Arterial Blood Pressure 149/58 Pulmonary Artery Pressure 33/9 Cardiac Output 6.1 Cardiac Index 2.7 - Exam CONSTITUTIONAL: Sitting up to the bedside chair in the intensive care unit, appears comfortable, cooperative, no apparent acute distress., Currently on room air oxygen HEENT: Neck is supple, no JVD, no lymphadenopathy. RESPIRATORY: Lungs sounds essentially clear throughout, diminished to his bilateral bases. Respirations are symmetrical and nonlabored. Currently on room air with oxygen saturations 94%. Able to achieve 750 mL on incentive spirometry. Strong cough. CARDIOVASCULAR: Regular rhythm and rate. S1 and S2 present, negative for S3, gallop or murmur. Sternum is stable. Palpable peripheral pulses bilaterally, +1 edema to her bilateral lower extremities. No calf pain or tenderness noted. Heart hugger in place with patient demonstrating appropriate use. Knee-high CARLITOS hose and sequential compression devices in place to his bilateral lower extremities. Bedside telemetry showing normal sinus rhythm, heart rate 84 bpm. GASTROINTESTINAL: Abdomen soft, nontender, nondistended. Active bowel sounds present 4 quadrants. Tolerating diet. Passing flatus. No guarding or rigidity. GENITOURINARY: Continues to void. Urine output 400 mL in the last 8 hours. INTEGUMENTARY: Skin is warm and dry with no evidence of clubbing or cyanosis. Midline sternal incision clean dry and well approximated, covered with dry intact dressing. Left lower extremity EVH site well approximated without redness or drainage. Left arm radial artery harvest sites clean, dry and approximated. No drainage or redness is present. NEUROLOGIC: Cranial nerves II through XII intact. No focal deficits. MUSKULOSKELETAL: Able to move all extremities, strength equal bilaterally. PSYCHIATRIC: Alert and oriented to person place and time, appropriate affect, intact judgment and insight.signs - Labs CBC & Chem 7: 03/22/22 03:49 03/22/22 03:49 Labs: Abnormal Lab Results - Last 24 Hours (Table) 03/21/22 03/21/22 03/21/22 Range/Units 11:44 16:18 20:37 RBC (3.80-5.40) m/uL Hgb (11.4-16.0) gm/dL Hct (34.0-46.0) % Plt Count (150-450) k/uL Sodium (137-145) mmol/L Glucose (74-99) mg/dL POC Glucose (mg/dL) 130 H 134 H 147 H (70-110) mg/dL Calcium (8.4-10.2) mg/dL 03/22/22 03/22/22 03/22/22 Range/Units 03:49 03:49 06:26 RBC 3.18 L (3.80-5.40) m/uL Hgb 10.3 L (11.4-16.0) gm/dL Hct 30.4 L (34.0-46.0) % Plt Count 97 L (150-450) k/uL Sodium 135 L (137-145) mmol/L Glucose 124 H (74-99) mg/dL POC Glucose (mg/dL) 153 H (70-110) mg/dL Calcium 8.2 L (8.4-10.2) mg/dL Assessment and Plan Assessment: Unstable angina in a patient found to have significant left main disease and had undergone coronary artery bypass grafting 3 without RUBIN to the LAD, left radial artery to the OM, saphenous vein graft to the PDA. . The patient underwent event vessel bypass surgery. Patient is postop day #4 Acute hypoxemic respiratory failure, expected outcome of surgery, currently on weaned off the mechanical ventilator and the patient is extubated and the patient is currently on RA oxygen by nasal cannula the [place] catheter was removed. The patient would have the chest tubes removed today. Chest x-ray showing small bilateral pleural effusions. Episodes of atrial fibrillation/atrial tachycardia and the patient is currently loaded with amiodarone off amiodarone and the patient is currently on metoprolol and the patient is also on anticoagulation with Eliquis. History of coronary artery disease with previous PCI to the RCA in 2013 Morbid obesity Hypertension Hyperlipidemia Gastroesophageal reflux disease Anxiety Remote history of pulmonary embolism Lifelong nonsmoker Obstructive sleep apnea currently on APAP machine. Plan: Continue using the incentive spirometer Lasix 20 mg a push 1 Morning chest x-ray was noted , stable Sliding-scale insulin coverage Epicardial pacemaker wires have been removed stone removed Continue aspirin, Plavix and metoprolol 25 mg by mouth twice a day, will start the patient also on Eliquis Condition is stable and will continue to follow. The patient is also using her own CPAP unit. Possible home tomorrow if things remain stable at this
[2022-03-22 11:27] LABS: Glucose,Whole Blood 135 mg/dL (70-110)
[2022-03-22] MEDS: amLODIPine 5 MG TAB PO SCH (12:23)
[2022-03-22 16:23] LABS: Glucose,Whole Blood 118 mg/dL (70-110)
[2022-03-22] MEDS: ATORVASTATIN 40 MG TAB PO SCH (21:14)
[2022-03-22] MEDS: SENNOSIDES-DOCUSATE SODIUM 1 EACH TAB PO SCH (21:14)
[2022-03-22] MEDS: MELATONIN 5 MG TABLET PO PRN (21:14)
[2022-03-22 21:17] LABS: Glucose,Whole Blood 137 mg/dL (70-110)
[2022-03-23 04:05] LABS: HCT 32.7 % (34.0-46.0); HGB 10.9 gm/dL (11.4-16.0); Hypochromasia Slight; MCHC 33.2 g/dL (31.0-37.0); MCV 96.5 fL (80.0-100.0); Mean Platelet Volume 12.3; Platelet Count 134 k/uL (150-450); RBC 3.39 m/uL (3.80-5.40); RDW 12.5 % (11.5-15.5); WBC 11.4 k/uL (3.8-10.6)
[2022-03-23 04:17] LABS: African American GFR (CKD) >90 (>60 ml/min/1.73 sqM); Anion Gap 9 mmol/L; Blood Urea Nitrogen 20 mg/dL (7-17); Calcium 8.6 mg/dL (8.4-10.2); Carbon Dioxide 20 mmol/L (22-30); Chloride 106 mmol/L (98-107); Glucose 131 mg/dL (74-99); Non-African American GFR(CKD) 83 (>60 ml/min/1.73 sqM); Potassium 4.2 mmol/L (3.5-5.1); Sodium 135 mmol/L (137-145)
--- NOTE | 2022-03-23 06:13 | XR ---
EXAMINATION TYPE: XR chest 1V portable DATE OF EXAM: 03/23/2022 CLINICAL HISTORY: Difficulty breathing progress study. Postoperative CABG. TECHNIQUE: Single AP portable semiupright view of the chest is obtained. COMPARISON: Chest x-ray from one day earlier and older studies. FINDINGS: Overlying sternal wires and mediastinal clips along with left atrial appendage clip are al l redemonstrated. Persistent cardiomegaly with bibasilar opacities. Increased interstitial edema arelis ins present. Osseous structures are intact. IMPRESSION: Findings consistent with CHF exacerbation and/or fluid overload state remain present. Car diomegaly with central vascular congestion and small bilateral pleural effusions redemonstrated. No s ignificant change from one day earlier.
[2022-03-23] MEDS: PANTOPRAZOLE 40 MG TABLET PO SCH (06:35)
[2022-03-23 06:39] LABS: Glucose,Whole Blood 128 mg/dL (70-110)
[2022-03-23] MEDS: INSULIN ASPART (NovoLOG) 100 UNIT/ML VIAL SQ SCH ×2 (07:04→11:58)
[2022-03-23] MEDS: IPRATROPIUM-ALBUTEROL 3 ML NEB INHALATION SCH ×3 (08:12→15:32)
[2022-03-23] MEDS ORDERED: POTASSIUM CHLORIDE ER 10 MEQ TAB.ER.PRT PO STA (08:37)
--- NOTE | 2022-03-23 08:45 | P.PN ---
Subjective Progress Note Date: 03/23/22 Principal diagnosis: Coronary artery disease, unstable angina, paroxysmal atrial fibrillation. Past medical history significant for coronary artery disease with myocardial infarct ion in 2014, status post PCI to the RCA, hypertension, hyperlipidemia, new onset slow atrial fibrillation, remote history of pulmonary embolism, obstructive sleep apnea with home CPAP use, remote history of pneumonia, lifetime nonsmoker, morbid obesity with a BMI of 41.0 kg/m, borderline diabetic with a preoperative hemoglobin A1c 6.2% and family history of premature coronary artery disease with her father having multiple myocardial infarctions before the age of 60. POD #5 off-pump coronary artery bypass grafting 3 with RUBIN to LAD, left radial artery graft to obtuse marginal, saphenous vein graft to posterior descending coronary artery, endovascular vein harvest, endovascular radial artery harvest, modified Jha maze with bilateral pulmonary vein isolation and exclusion of the left atrial appendage. Postoperative acute blood loss anemia, expected secondary to hemodilution. The patient was seen and examined in follow-up today at her bedside in the intensive care unit. Currently she is sitting up to the bedside chair, is awake, alert, oriented 3 and is in no acute apparent distress. Denies any complaints of pain or shortness of breath at this time. She does report that with activity there is some shortness of breath present. Oxygen saturations are 93% on room air and she is achieving 3157-5047 mL on her incentive spirometry with encouragement. Bedside telemetry showing normal sinus rhythm with occasional PVC heart rate 85 BPM. She remained hemodynamically stable with no inotropic or pressor support. The patient has been up ambulating in the intensive care unit hallway with standby assistance from nursing and therapy staff. She did receive a first postop shower yesterday and tolerated well. Discharge planning is in place with anticipated discharge home today with home health care. Laboratory results this morning show a WBC count of 11.4, hemoglobin 10.9, hematocrit 32.7, platelets 134, sodium 135, potassium 4.2, BUN 20, creatinine 0.72, glucose 131 and calcium 8.6. Chest x-ray reviewed. Objective - Vital Signs Vital signs: Vital Signs Temp 99 F 03/23/22 00:00 Pulse 81 03/23/22 08:12 Resp 21 03/23/22 04:00 BP 124/64 03/23/22 04:00 Pulse Ox 93 L 03/23/22 04:00 FiO2 50 03/18/22 20:27 Intake & Output 03/22/22 03/23/22 03/23/22 18:59 06:59 18:59 Intake Total 840 720 Output Total 1200 400 Balance -360 320 Weight 117.6 kg Intake: Oral 840 720 Output: Urine 1200 400 Other: Voiding Method Bedside Commode Bedside Commode # Voids 1 # Bowel Movements 1 1 ABP, PAP, CO, CI - Last Documented Arterial Blood Pressure 149/58 Pulmonary Artery Pressure 33/9 Cardiac Output 6.1 Cardiac Index 2.7 - Exam CONSTITUTIONAL: Sitting up to the bedside chair in the intensive care unit, appears comfortable, cooperative, no apparent acute distress. HEENT: Neck is supple, no JVD, no lymphadenopathy. RESPIRATORY: Lungs sounds essentially clear throughout, diminished to her bilateral bases. Respirations are symmetrical and nonlabored. Currently on room air with oxygen saturations 93%. Able to achieve 8697-8689 mL on incentive spir ometry. Strong cough. CARDIOVASCULAR: Regular rhythm and rate. S1 and S2 present, negative for S3, gallop or murmur. Sternum is stable. Palpable peripheral pulses bilaterally, +1 edema to her bilateral lower extremities. No calf pain or tenderness noted. Surgical support bra and Heart hugger in place with patient demonstrating appropriate use. Knee-high CARLITOS hose and sequential compression devices in place to his bilateral lower extremities. Bedside telemetry showing normal sinus rhyt hm with occasional PVC, heart rate 85 bpm. GASTROINTESTINAL: Abdomen soft, nontender, nondistended. Active bowel sounds present 4 quadrants. Tolerating diet. Passing flatus. No guarding or rigid ity. Bowel movement this a.m. GENITOURINARY: Continues to void. Urine output 400 mL in the last 8 hours. INTEGUMENTARY: Skin is warm and dry with no evidence of clubbing or cyanosis. Midline sternal incision clean dry and well approximated, covered with dry intact dressing. Left lower extremity EVH site well approximated without redness or drainage. Left arm radial artery harvest sites clean, dry and approximated. No drainage or redness is present. NEUROLOGIC: Cranial nerves II through XII intact. No focal deficits. MUSKULOSKELETAL: Able to move all extremities, strength equal bilaterally. PSYCHIATRIC: Alert and oriented to person place and time, appropriate affect, intact judgment and insight. - Allied health notes Allied health notes reviewed: nursing - Labs CBC & Chem 7: 03/23/22 03:51 03/23/22 03:51 Labs: Abnormal Lab Results - Last 24 Hours (Table) 03/22/22 03/22/22 03/22/22 Range/Units 11:26 16:22 21:16 WBC (3.8-10.6) k/uL RBC (3.80-5.40) m/uL Hgb (11.4-16.0) gm/dL Hct (34.0-46.0) % Plt Count (150-450) k/uL Sodium (137-145) mmol/L Carbon Dioxide (22-30) mmol/L BUN (7-17) mg/dL Glucose (74-99) mg/dL POC Glucose (mg/dL) 135 H 118 H 137 H (70-110) mg/dL 03/23/22 03/23/22 03/23/22 Range/Units 03:51 03:51 06:38 WBC 11.4 H (3.8-10.6) k/uL RBC 3.39 L (3.80-5.40) m/uL Hgb 10.9 L (11.4-16.0) gm/dL Hct 32.7 L (34.0-46.0) % Plt Count 134 L (150-450) k/uL Sodium 135 L (137-145) mmol/L Carbon Dioxide 20 L (22-30) mmol/L BUN 20 H (7-17) mg/dL Glucose 131 H (74-99) mg/dL POC Glucose (mg/dL) 128 H (70-110) mg/dL - Imaging and Cardiology Chest x-ray: report reviewed, image reviewed Assessment and Plan Assessment: 1. Coronary artery disease, status post three-vessel CABG 03/18/2022 2. Unstable angina 3. Paroxysmal atrial fibrillation, status post modified Jha maze with bilateral pulmonary vein isolation and exclusion of the left atrial appendage, currently in normal sinus rhythm 4. History of coronary artery disease status post PCI to the right coronary artery in 2013 5. History of myocardial infarction in 2013 6. History of hypertension 7. History of hyperlipidemia, treated, cholesterol 155, LDL 84.6 8. Obstructive sleep apnea, with home CPAP use 9. Morbid obesity with BMI of 41.0 kg/m 10. Remote history of pneumonia 11. Borderline diabetic with a preoperative hemoglobin A1c 6.2% 12. Family history of premature coronary artery disease with her father having multiple myocardial infarctions before the age of 60 13. Lifetime nonsmoker 14. Third-degree heart block, resolved, currently normal sinus rhythm 15. Postoperative acute blood loss anemia, expected given hemodilution Plan: 1. Continue aspirin, statin, and beta sherry. Will increase metoprolol tartrate as tolerated with hold parameters. 2. Continue Amlodipine 5 mg by mouth daily at noon for radial artery spasm prophylaxis. 3. Encourage incentive spirometry use 10 times every hour while awake. Bronchodilators per pulmonology. 4. Increase activity, ambulate as tolerated. PT/OT/cardiac rehab following. 5. Will monitor daily labs and chest x-rays. Electrolyte replacement per protocol. 6. GI/DVT prophylaxis. 7. Pain control with current medication regimen. 8. Insulin management per internal medicine. Patient needs tight blood sugar control to prevent infection and promote healing. She is a borderline diabetic with a preoperative hemoglobin A1c of 6.2%. 9. Continue to record strict accurate I's and O's, May bladder scan every 6 hours and when necessary postvoid residual. Daily weights. 10. Daily shower. 11. Lasix 20 mg IV 1 now and potassium chloride 10 mEq by mouth 1 now. 12. Continue Eliquis was 5 mg by mouth twice a day for anticoagulation. 13. Discharge planning is in place, anticipate discharge home with home health care in the next 24 hours. 14. More recommendations to follow based on patient's clinical course. Time with Patient: Greater than 30
[2022-03-23] MEDS: ASPIRIN 81 MG PO SCH (08:53)
[2022-03-23] MEDS: APIXABAN 5 MG TAB PO SCH (08:53)
[2022-03-23] MEDS: METOPROLOL TARTRATE 25 MG TAB PO SCH (08:53)
[2022-03-23] MEDS ORDERED: FUROSEMIDE 10 MG/ML 2 ML VIAL IV ONE (09:00)
--- NOTE | 2022-03-23 09:36 | P.PN ---
Subjective This is a pleasant 76 years old female with multiple medical problems as below including Coronary Artery Disease, Hyperlipidemia, Hypertension, Pulmonary Embolus (PE) not on anticoagulation, , Sleep Apnea/CPAP/BIPAP Patient was admitted for his unstable angina and she underwent coronary artery bypass grafting. Today is postoperative day #1 Patient is sitting in chair. Tomorrow, no chest pain or dyspnea, no diarrhea or abdominal pain or vomiting. Not shown WBC 13.9. Hemoglobin 10.4. BMP and liver enzymes are unremarkable. Hemoglobin A1c is 6.2 Vitals stable, temperature 99.7, she is saturating 96% on 3 L oxygen via nasal cannula Ejection fraction: 40-45% Chest x-ray: Mild pulmonary vascular congestion, no consolidation. Carotid duplex: 50% stenosis 03/20/2022 Patient with no new complaints, no chest pain or dyspnea remains in the ICU monitor closely. Blood pressure stable but she developing low-grade fever of 100.2 today, WBC tr ending down 13 point plus down to 12,000. Hemoglobin 9.7 Patient is an combination of aspirin and Plavix and low-dose metoprolol Eliquis admitted today for new onset A. fib, patient is without by technical illustrator as well. Ejection fraction 40-45%. Chest x-ray showing bibasilar atelectasis. 03/21/2022 patient looks today, sitting up in chair She denies chest pain or dyspnea She complained from her coughing and lack of sleep and Robitussin and melatonin when necessary prescribed for her. She agrees with the plan. Vitals stable. The ellipse E 12,000, hemoglobin 10 Remains on aspirin and Plavix and surgery primary team started patient on Eliquis blood thinner 03/22/2022 Patient clinically looks similar to yesterday. No chest pain or dyspnea. However patient have some tachypnea especially when talking. She has less coughing. She slipped on and off last night and she wants to keep the sleeping pill. WBC is down to 10.5, no fever. Rest of vitals and labs are stable. Aspirin, Plavix and Eliquis and metoprolol lisinopril. 03/23/2022 No chest pain or dyspnea Vital signs stable, afebrile. WBCs 11,000, hemoglobin 10.9 She remains on Eliquis and aspirin, no more Plavix per primary team. Risks and benefits are explained for the patient and she is agreeable. Hemoglobin A1c is 6.2%,we recommend diabetic diet, low carbohydrate diet and keep monitoring sugar closely as an outpatient. Objective - Vital Signs Vital signs: Vital Signs Temp 99 F 03/23/22 00:00 Pulse 81 03/23/22 08:25 Resp 21 03/23/22 04:00 BP 124/64 03/23/22 04:00 Pulse Ox 93 L 03/23/22 04:00 FiO2 50 03/18/22 20:27 Intake & Output 03/22/22 03/23/22 03/23/22 18:59 06:59 18:59 Intake Total 840 720 Output Total 1200 400 Balance -360 320 Weight 117.6 kg Intake: Oral 840 720 Output: Urine 1200 400 Other: Voiding Method Bedside Commode Bedside Commode # Voids 1 # Bowel Movements 1 1 ABP, PAP, CO, CI - Last Documented Arterial Blood Pressure 149/58 Pulmonary Artery Pressure 33/9 Cardiac Output 6.1 Cardiac Index 2.7 - Exam GENERAL: The patient is alert and oriented x3, not in any acute distress. Well developed, well nourished. HEENT: Pupils are round and equally reacting to light. EOMI. No scleral icterus. No conjunctival pallor. Normocephalic, atraumatic. No pharyngeal erythema. No th yromegaly. CARDIOVASCULAR: S1 and S2 present. No murmurs, rubs, or gallops. PULMONARY: Chest is clear to auscultation, no wheezing or crackles. ABDOMEN: Soft, nontender, nondistended, normoactive bowel sounds. No palpable organomegaly. MUSCULOSKELETAL: No joint swelling or deformity. EXTREMITIES: No cyanosis, clubbing, or pedal edema. NEUROLOGICAL: Gross neurological examination did not reveal any focal deficits. SKIN: No rashes. no petechiae. - Labs CBC & Chem 7: 03/23/22 03:51 03/23/22 03:51 Labs: Abnormal Lab Results - Last 24 Hours (Table) 03/22/22 03/22/22 03/22/22 Range/Units 11:26 16:22 21:16 WBC (3.8-10.6) k/uL RBC (3.80-5.40) m/uL Hgb (11.4-16.0) gm/dL Hct (34.0-46.0) % Plt Count (150-450) k/uL Sodium (137-145) mmol/L Carbon Dioxide (22-30) mmol/L BUN (7-17) mg/dL Glucose (74-99) mg/dL POC Glucose (mg/dL) 135 H 118 H 137 H (70-110) mg/dL 03/23/22 03/23/22 03/23/22 Range/Units 03:51 03:51 06:38 WBC 11.4 H (3.8-10.6) k/uL RBC 3.39 L (3.80-5.40) m/uL Hgb 10.9 L (11.4-16.0) gm/dL Hct 32.7 L (34.0-46.0) % Plt Count 134 L (150-450) k/uL Sodium 135 L (137-145) mmol/L Carbon Dioxide 20 L (22-30) mmol/L BUN 20 H (7-17) mg/dL Glucose 131 H (74-99) mg/dL POC Glucose (mg/dL) 128 H (70-110) mg/dL Assessment and Plan Assessment: unstable angina Status post coronary artery bypass grafting 3 with RUBIN to LAD Paroxysmal atrial fibrillation with heart rate controlled Sleep Apnea/CPAP/BIPA hypertensio leukocytosis, most likely reactive Postop anemia expected Hyperlipidemia History of pulmonary embolism Obesity with BMI of 41 Mild cardiomyopathy Plan: Continue with aspirin and Plavix. Also patient started on liquids anticoagulation per cardiolosurgery team Continue with aspirin and/or liquid Keep monitoring labs including hemoglobin recommend diabetic diet, low carbohydrate diet and keep monitoring sugar closely as an outpatient. Labs and medication were reviewed.. Continue same treatment. Continue with symptomatic treatment. Resume home medication. Monitor labs and vitals. DVT and GI prophylaxis. Further recommendations as per clinical course of the patient DVT prophylaxis: Deferred to surgery team GI Prophylaxis: Ppi Prognosis is guarded
[2022-03-23 10:17] VITALS: BMI 40.6
--- NOTE | 2022-03-23 11:39 | P.PN ---
Subjective Progress Note Date: 03/23/22 Principal diagnosis: Postoperative day #5,off-pump coronary artery bypass grafting 3 with RUBIN to LAD, left radial artery graft to obtuse marginal, saphenous vein graft to posterior descending coronary artery, endovascular vein harvest, endovascular radial artery harvest, modified Jha maze with bilateral pulmonary vein isolation and exclusion of the left atrial appendage. Reevaluated today on 03/23/22, patient is on room air, asymptomatic, no cough no wheezing no shortness of breath, chest x-ray showed minimal atelectasis at the base. And very minimal tiny pleural effusions. Patient is doing great clinically, and basically asymptomatic, patient is being considered for discharge possibly home today. Labs from today are all unremarkable including electrolytes, renal profile, and CBC. Objective - Vital Signs Vital signs: Vital Signs Temp 98.4 F 03/23/22 08:50 Pulse 82 03/23/22 08:50 Resp 18 03/23/22 08:50 BP 134/64 03/23/22 08:50 Pulse Ox 95 03/23/22 08:50 FiO2 50 03/18/22 20:27 Intake & Output 03/22/22 03/23/22 03/23/22 18:59 06:59 18:59 Intake Total 840 720 Output Total 1200 400 600 Balance -360 320 -600 Weight 117.6 kg 117.6 kg Intake: Oral 840 720 Output: Urine 1200 400 600 Other: Voiding Method Bedside Commode Bedside Commode # Voids 1 # Bowel Movements 1 1 1 ABP, PAP, CO, CI - Last Documented Arterial Blood Pressure 149/58 Pulmonary Artery Pressure 33/9 Cardiac Output 6.1 Cardiac Index 2.7 - Exam Physical Exam: Revealed 76-year-old female in no distress. Head: Atraumatic normocephalic. HEENT:[Neck is supple.] [No neck masses.] [No thyromegaly.] [No JVD.] Chest: [Diminished breath sounds at the bases no crackles or rhonchi or wheezes Cardiac Exam: [Normal S1 and S2, no S3 gallop, no murmur.] Abdomen: [Soft, nontender, no megaly, no rebound, no guarding, normal bowel sounds.] Extremities: [No clubbing, no edema, no cyanosis.] Neurological Exam: [No focal neurologic deficit.] Psychiatric: Normal mood affect and normal mental status examination Skin: No rashes - Labs CBC & Chem 7: 03/23/22 03:51 03/23/22 03:51 Labs: Abnormal Lab Results - Last 24 Hours (Table) 03/22/22 03/22/22 03/23/22 Range/Units 16:22 21:16 03:51 WBC 11.4 H (3.8-10.6) k/uL RBC 3.39 L (3.80-5.40) m/uL Hgb 10.9 L (11.4-16.0) gm/dL Hct 32.7 L (34.0-46.0) % Plt Count 134 L (150-450) k/uL Sodium (137-145) mmol/L Carbon Dioxide (22-30) mmol/L BUN (7-17) mg/dL Glucose (74-99) mg/dL POC Glucose (mg/dL) 118 H 137 H (70-110) mg/dL 03/23/22 03/23/22 Range/Units 03:51 06:38 WBC (3.8-10.6) k/uL RBC (3.80-5.40) m/uL Hgb (11.4-16.0) gm/dL Hct (34.0-46.0) % Plt Count (150-450) k/uL Sodium 135 L (137-145) mmol/L Carbon Dioxide 20 L (22-30) mmol/L BUN 20 H (7-17) mg/dL Glucose 131 H (74-99) mg/dL POC Glucose (mg/dL) 128 H (70-110) mg/dL Assessment and Plan Assessment: Impression: Status post CABG, postoperative day #5 Paroxysmal atrial fibrillation Coronary arteriosclerosis and previous PCI to RCA in 2014 Benign essential hypertension Obstructive sleep apnea syndrome, on home CPAP Morbid obesity BMI of 41.0 Lifetime nonsmoker Postoperative blood loss anemia, expected Recommendation: Continue present supportive care measures Continue incentive spirometry Agree with Lasix given today. Continue eliquis. Agree with discharge planning today and follow up on outpatient basis. Time with Patient: Less than 30
[2022-03-23 11:58] LABS: Glucose,Whole Blood 122 mg/dL (70-110)
[2022-03-23 12:38] VITALS: BP 118/58; PULSE 78; RESP 17; TEMP 98
[2022-03-23] MEDS: amLODIPine 5 MG TAB PO SCH (12:42)
[2022-03-23] MEDS: MULTIVITAMINS, THERA 1 EACH TAB PO SCH (12:42)
--- NOTE | 2022-03-23 14:53 | PN ---
PROGRESS NOTE HISTORY OF PRESENT ILLNESS: This is a 76-year-old lady who was admitted to hospital with coronary artery disease and underwent bypass surgery with RUBIN to LAD, radial to OM, SVG to PDA as well as Jha- maze, pulmonary vein isolation, and left atrial appendage exclusion. She is ready to be discharged home this morning. She is free of any symptoms. CURRENT MEDICATIONS: 1. Eliquis 5 b.i.d. 2. Norvasc 5 daily. 3. Aspirin. 4. Lipitor. 5. Insulin. 6. Lopressor. PHYSICAL EXAMINATION: GENERAL: Comfortable at rest. VITAL SIGNS: Stable. NECK: There is no jugular venous distention. Carotid upstroke is normal, there is no bruit. CHEST: Reveals good air entry bilaterally. HEART: Reveals first and second heart sounds. No gallop. EXTREMITIES: Did not reveal any edema. LABORATORY DATA: Labs have been reviewed. ASSESSMENT: 1. Coronary artery disease, status post coronary artery bypass graft. 2. History of atrial fibrillation. PLAN: The patient is doing well clinically, ready to be discharged home, followup with Cardiology. MMODL / IJN: [id number] /
--- NOTE | 2022-03-23 15:08 | P.DS ---
Providers Date of admission: 03/18/22 09:27 Expected date of discharge: 03/23/22 Attending physician: Alberto Squires Consults: 03/18/22 09:27 Consult Physician Routine Consulting Provider: Yesi Kincaid Consult Reason/Comments: Preop CABG Do you want consulting provider notified?: Already Contacted Consult to Anesthesia Routine Consulting Provider: Anesthesia,Services Consult Reason/Comments: Cardiac Surgery Pre-Op 03/18/22 16:23 Consult Physician Routine Consulting Provider: Colby Luque Consult Reason/Comments: Die Holder Consult: post cardiac surgery Do you want consulting provider notified?: Yes Consult Physician Routine Consulting Provider: Kishor Velasquez Consult Reason/Comments: [facility]; [facility] patient Do you want consulting provider notified?: Yes Primary care physician: Elvin Lino [facility] Hospital Course: FINAL DIAGNOSIS: 1. Coronary artery disease, status post three-vessel CABG 03/18/2022 2. Unstable angina 3. Paroxysmal atrial fibrillation, status post modified Jha maze with bilateral pulmonary vein isolation and exclusion of the left atrial appendage, currently in normal sinus rhythm 4. History of coronary artery disease status post PCI to the right coronary artery in 2013 5. History of myocardial infarction in 2013 6. History of hypertension 7. History of hyperlipidemia, treated, cholesterol 155, LDL 84.6 8. Obstructive sleep apnea, with home CPAP use 9. Morbid obesity with BMI of 41.0 kg/m 10. Remote history of pneumonia 11. Borderline diabetic with a preoperative hemoglobin A1c 6.2% 12. Family history of premature coronary artery disease with her father having multiple myocardial infarctions before the age of 60 13. Lifetime nonsmoker 14. Third-degree heart block, resolved, currently normal sinus rhythm 15. Postoperative acute blood loss anemia, expected given hemodilution PRINCIPAL PROCEDURE: 1. Off -pump coronary artery bypass grafting 3 with RUBIN to LAD, left radial artery graft to obtuse marginal, saphenous vein graft to posterior descending coronary artery 2. Endovascular vein harvest 3. Endovascular radial artery harvest 4. Modified Jha maze with bilateral pulmonary vein isolation 5. Exclusion of the left atrial appendage 6. Intraoperative transesophageal echocardiogram performed by anesthesia HISTORY OF PRESENT ILLNESS: This is a 76-year-old female patient who follows on an outpatient basis with Dr. Holland Lizama for her primary care service and Dr. WINTER Barajas for cardiology care. Rest leak, the patient has been symptomatic with shortness of breath and chest pain over about a 1-1/2 month period. The shortness of breath was worse with exertion and her symptoms were similar to when she had her myocardial infarction in 2013. She was treating her shortness of breath and chest pain with sublingual nitroglycerin quite frequently which she did get relief of her symptoms. Due to the patient's symptoms she followed up with Dr. WINTER Barajas in the office and was recommended to undergo a heart catheterization which was completed on 03/18/2022 and demonstrated significant distal left main stenosis of 95% with thrombus. Subsequently, due to the findings on her heart catheterization a consult was placed to Dr. Alberto Squires from cardiothoracic surgery for further evaluation and treatment recommendations including myocardial revascularization surgery. The patient also underwent a transthoracic 2-D echocardiogram in January 2022 which demonstrated an ejection fraction of 55%, grade 2 diastolic dysfunction, moderate mitral valve regurgitation and mild tricuspid valve regurgitation. Dr. Squires met with the patient and her family present at her bedside, treatment options were discussed including myocardial revascularization surgery. Risks and benefits of surgery were discussed including the STS risk score. Knowing and understanding the risks the patient which proceed with the surgical option. HOSPITAL COURSE: The patient was admitted to the hospital, and after obtaining consent was taken to the preoperative area on 03/18/2022, prepared in the usual fashion and subsequently taken to the operating room were Dr. Alberto Squires performed an off-pump coronary artery bypass grafting 3. Upon completion of th e surgery the patient was transferred to the cardiovascular intensive care unit where she was recovered and monitored hemodynamically. She was extubated, all lines, tubes and supportive drips were discontinued when appropriate and transfer orders were placed to the cardiac stepdown unit, although due to lack of bed availability on the stepdown unit she was kept in the intensive care unit for further monitoring and rehabilitation. Her oxygen was titrated down, she continued to work with physical, occupational therapy, cardiac rehabilitation, she was tolerating an oral diet, her pain was well-controlled and she was ready to be discharged home on postoperative day #5 with residential home health care. She has received written and verbal instructions regarding her medications, activity restrictions, signs and symptoms requiring physician notification and her follow-up appointments. Plan - Discharge Summary Discharge Rx Participant: Yes New Discharge Prescriptions: New Furosemide [Lasix] 20 mg PO DAILY #7 tab Apixaban [Eliquis] 5 mg PO BID #60 tab Potassium Chloride ER [K-Dur 10] 10 meq PO DAILY #7 tab Atorvastatin [Lipitor] 40 mg PO HS #30 tab Metoprolol Tartrate [Lopressor] 25 mg PO BID #60 tab amLODIPine [Norvasc] 5 mg PO DAILY@1200 #30 tab Sennosides-Docusate Sodium [Senokot-S] 2 each PO HS #14 tab Acetaminophen Tab [Tylenol] 650 mg PO Q4HR PRN tab PRN Reason: Fever and/ or Mild Pain Continue Multivitamins, Thera [Multivitamin (formulary)] 1 each PO DAILY@1200 Meclizine [Antivert] 12.5 mg PO TID PRN PRN Reason: dizziness Omeprazole [PriLOSEC] 20 mg PO AC-BRKFST [place]-3 Fatty Acids/Fish Oil [Fish Oil 1,000 mg Softgel] 1 each PO DAILY Calcium Carbonate [Calcium] 500 mg PO DAILY Melatonin [Melatonin Chew] 2.5 mg PO HS ALPRAZolam [Xanax] 0.5 mg PO HS PRN PRN Reason: Anxiety traMADol HCL 50 mg PO Q6H Aspirin [Adult Low Dose Aspirin EC] 81 mg PO DAILY #30 tab Discontinued hydroCHLOROthiazide [Hydrodiuril] 25 mg PO DAILY Nitroglycerin Sl Tabs [Nitrostat] 0.4 mg SUBLINGUAL Q5M PRN #25 tab PRN Reason: Chest Pain Enalapril [Vasotec] 10 mg PO BID #60 tab Isosorbide Mononitrate ER [Imdur] 30 mg PO DAILY Atorvastatin [Lipitor] 40 mg PO HS Enalapril Maleate 10 mg PO BID Metoprolol Succinate [Metoprolol Succinate ER] 12.5 mg PO DAILY Discharge Medication List Meclizine [Antivert] 12.5 mg PO TID PRN 02/18/14 [History] Multivitamins, Thera [Multivitamin (formulary)] 1 each PO DAILY@1200 02/18/14 [History] [place]-3 Fatty Acids/Fish Oil [Fish Oil 1,000 mg Softgel] 1 each PO DAILY 02/18/14 [History] Omeprazole [PriLOSEC] 20 mg PO AC-BRKFST 02/18/14 [History] ALPRAZolam [Xanax] 0.5 mg PO HS PRN 03/18/22 [History] Calcium Carbonate [Calcium] 500 mg PO DAILY 03/18/22 [History] Melatonin [Melatonin Chew] 2.5 mg PO HS 03/18/22 [History] traMADol HCL 50 mg PO Q6H 03/18/22 [History] Acetaminophen Tab [Tylenol] 650 mg PO Q4HR PRN tab 03/23/22 [Rx] Apixaban [Eliquis] 5 mg PO BID #60 tab 03/23/22 [Rx] Aspirin [Adult Low Dose Aspirin EC] 81 mg PO DAILY #30 tab 03/23/22 [Rx] Atorvastatin [Lipitor] 40 mg PO HS #30 tab 03/23/22 [Rx] Furosemide [Lasix] 20 mg PO DAILY #7 tab 03/23/22 [Rx] Metoprolol Tartrate [Lopressor] 25 mg PO BID #60 tab 03/23/22 [Rx] Potassium Chloride ER [K-Dur 10] 10 meq PO DAILY #7 tab 03/23/22 [Rx] Sennosides-Docusate Sodium [Senokot-S] 2 each PO HS #14 tab 03/23/22 [Rx] amLODIPine [Norvasc] 5 mg PO DAILY@1200 #30 tab 03/23/22 [Rx] Follow up Appointment(s)/Referral(s): Dee Hale NPC [Nurse Practitioner] - 03/30/22 11:00 am Rehab [facility],Cardiac [NON-STAFF] - 1 Week Elvin Patino III, MD [Primary Care Provider] - 1 Week (Lis from Dr. Patino's office will call with a follow-up appointment.) Alberto Squires MD [STAFF PHYSICIAN] - 04/09/22 1:30 pm [facility] [NON-STAFF] - Jeff Barajas MD [STAFF PHYSICIAN] - 1 Week (Lupe from Dr. Barajas's office will call with follow-up appointment.) Yesi Kincaid MD [STAFF PHYSICIAN] - 04/14/22 10:00 am Ambulatory/Diagnostic Orders: Complete Blood Count w/diff [LAB.AMB] Time Frame: 03/26/22, Facility: [facility], Location: [facility] Comprehensive Metabolic Panel [LAB.AMB] Time Frame: 03/26/22, Facility: [facility], Location: [facility] Activity/Diet/Wound Care/Special Instructions: DISCHARGE INSTRUCTIONS: 1. No driving for 4 weeks, or until physician gives their ok. 2. The patient should sleep in their own bed, no medical bed needed. 3. Stairs are not an issue. If the bedroom is upstairs, it is advised that the patient go up at night and down in the morning for the first week. Go slowly, using handrail and take 1 step at a time. 4. CARLITOS hose are to be worn for 30 days post surgery or until physician discontinues. 5. Heart hugger is to be worn 100% of the time until physician discontinues.(except when showering) 6. No lifting, pushing, or pulling more than 10 pounds for 12 weeks. The physician will advise of any restriction changes. 7. The patient is expected to continue the prescribed walking program. 8. Continue pain control per as needed orders. 9. Continue with incentive spirometry and splinting/heart hugger until otherwise directed by the physician. 10. Must shower daily using liquid antibacterial soap 11. Routine sternal incision care. No powders, lotions, ointments on incisions. No dressings are necessary on incisions unless they are draining. Dermabond tape is to remain on sternal incision until surgeon follow-up. 12. Please call surgeon/BURGLAR ALARM MECHANIC for temp greater than 101 F or purulent drainage from incisions. 13. You should weigh yourself daily, record and bring log with you to follow up appointments. 14. All prescriptions given by surgeon for 30 days. Refills need to be filled through etl informatica developer/primary care physician. 15. A Red armband has been placed on the patient. It should be worn for 30 days post discharge from surgery and will be removed by the cardiac surgeons. If an ER visit is necessary, please make sure the number on the Red armband is called before going to ER. 16. You have been referred to and are expected to begin Cardiac Rehab in approximately 4-6 weeks. HOME HEALTH SERVICES TO PROVIDE: RN SKILLED HOME CARE SERVICES FOR POST-OP SURGICAL PATIENTS WITH THE FOLLOWING: Coronary Artery Bypass Surgery (CABG), Mitral Valve Replacement/Repair ( MVR), Aortic Valve Replacement/Repair (AVR) RN TO CONTINUE EDUCATION FROM ``ROAD TO A HEALTH HEART PATIENT EDUCATION MANUAL (GIVEN TO PATIENT IN THE HOSPITAL) MEDICATION RECONCILIATION WITH EDUCATION NEEDED ON FIRST HOME VISIT EMPHASIZE IMPORTANCE OF WEARING BREAST SUPPORT/HEART HUGGER ENCOURAGE USE OF INCENTIVE SPIROMETER 10 X EVERY HOUR WHILE AWAKE ENCOURAGE UTILIZATION OF LOWER EXTREMITY COMPRESSION STOCKINGS/CARLITOS HOSE and ELEVATE LEGS ABOVE LEVEL OF HEART WHILE AT REST. ENCOURAGE AMBULATION 3-5x/day INCREASING TOLERATES, WHILE AVOIDING EXTREMES IN TEMPERATURE FREQUENCY: RN TO OPEN THE PATIENT WITHIN 24 HOURS OF DISCHARGE FROM THE HOSPITAL WITH TELEHEALTH INSTALLED AT [facility] [place], RN TO VISIT 2-3 X A WEEK FOR 4 WEEKS ESTABLISHED BY PATIENT NEEDS. LABORATORY: CBC, CMP TO BE DRAWN ON THE THIRD DAY HOME, (RAN STAT) FAX RESULTS TO [phone]. TELEHEALTH PARAMETERS: WEIGHT: NOTIFY MD OF WEIGHT GAIN OF 2 LBS IN 24 HOURS OR 5 LBS IN ONE WEEK HR: NOTIFY MD OF HR <55 BPM OR HR>100 BPM BP: NOTIFY MD IF BP <90/55 OR BP>140/100 O2 SAT: NOTIFY MD IF PO2<93% ON ROOM AIR SEND TELEHEALTH REPORT TO SEARCH AND RESCUE OFFICER AND CARDIOVASCULAR SURGEON THE FIRST WEEK OF CARE AND THEN BI-WEEKLY. PLEASE ADDITIONALLY COMMUNICATE ANY ABNORMALS AND NEW FINDINGS TO THE SURGEONS OFFICE. Discharge/Stand Alone Forms: Who Do I Call? Discharge Disposition: HOME WITH HOME HEALTH SERVICES
--- NOTE | 2022-03-24 10:19 | US ---
EXAMINATION TYPE: US vein mapping BIL DATE OF EXAM: 03/18/2022 10:19 AM COMPARISON: NONE CLINICAL HISTORY: preop cardiac surgery. CAD, open heart SIDE PERFORMED: Bilateral TECHNIQUE: Lower extremity saphenous vein is examined and measured utilizing real time linear array sonography. Patient History: Heart Disease: Yes Previous DVT: N/A Vascular Surgery: No Discoloration: No Hypertension: Yes Diabetes: No Paralysis: No Varicosities: No Edema: No DUPLEX FINDINGS: Greater Saphenous: Color flow seen Measurements in mm: Right Greater Saphenous: Groin: 8.0 x 7.0 mm High Thigh: 5.9 x 4.9 mm Mid Thigh: 5.2 x 3.9 mm Above Knee: 3.9 x 3.4 mm Knee: 3.7 x 3.7 mm Below Knee: 3.7 x 3.1 mm Mid Calf: 2.2 x 1.8 mm At Ankle: 2.5 x 2.1 mm Left Greater Saphenous: Groin: 6.4 x 5.2 mm High Thigh: 3.3 x 3.0 mm Mid Thigh: 3.0 x 3.0 mm Above Knee: 2.4 x 1.8 mm Knee: 2.3 x 2.3 mm Below Knee: 2.3 x 1.8 mm Mid Calf: 3.1 x 2.2 mm At Ankle: 2.9 x 2.5 mm IMPRESSION: 1. Bilateral GSV measurements listed above. 2. Performing surgeon to determine viability as conduit.
== END 2022-03-23 16:25 | disposition home health service (06) | DRG 233 ==
LOC: CATHCVL 05:40 → 2SICU 07:39 → CATHCVL 09:27
PROVIDERS: ADMIT Thoracic Surgery (Cardiothoracic Vascular Surgery); ATTEND Thoracic Surgery (Cardiothoracic Vascular Surgery)
PROC: 02100AW Bypass Coronary Artery, One Artery from Aorta with Autologous Arterial Tissue, Open Approach (ICD-10-PCS; principal; 2022-03-18 07:30)
PROC: 021009W Bypass Coronary Artery, One Artery from Aorta with Autologous Venous Tissue, Open Approach (ICD-10-PCS; principal; 2022-03-18 07:30)
PROC: 02580ZZ Destruction of Conduction Mechanism, Open Approach (ICD-10-PCS; principal; 2022-03-18 07:30)
PROC: 02100Z9 Bypass Coronary Artery, One Artery from Left Internal Mammary, Open Approach (ICD-10-PCS; principal; 2022-03-18 07:30)
PROC: 06BQ4ZZ Excision of Left Saphenous Vein, Percutaneous Endoscopic Approach (ICD-10-PCS; principal; 2022-03-18 07:30)
PROC: 02L70ZK Occlusion of Left Atrial Appendage, Open Approach (ICD-10-PCS; principal; 2022-03-18 07:30)
PROC: 03BC4ZZ Excision of Left Radial Artery, Percutaneous Endoscopic Approach (ICD-10-PCS; principal; 2022-03-18 07:30)
PROC: 4A023N7 Measurement of Cardiac Sampling and Pressure, Left Heart, Percutaneous Approach (ICD-10-PCS; 2022-03-18 07:30)
PROC: B2111ZZ Fluoroscopy of Multiple Coronary Arteries using Low Osmolar Contrast (ICD-10-PCS; 2022-03-18 07:30)
PROC: 5A09357 Assistance with Respiratory Ventilation, Less than 24 Consecutive Hours, Continuous Positive Airway Pressure (ICD-10-PCS; 2022-03-19)
DX: T82.855A Stenosis of coronary artery stent, initial encounter (principal); J96.01 Acute respiratory failure with hypoxia; I44.2 Atrioventricular block, complete; Z68.41 Body mass index [BMI] 40.0-44.9, adult; I42.9 Cardiomyopathy, unspecified; J90 Pleural effusion, not elsewhere classified; I25.110 Atherosclerotic heart disease of native coronary artery with unstable angina pectoris; I47.1 Supraventricular tachycardia; D62 Acute posthemorrhagic anemia; J98.11 Atelectasis; E66.01 Morbid (severe) obesity due to excess calories; I48.0 Paroxysmal atrial fibrillation; Z20.822 Contact with and (suspected) exposure to COVID-19; I25.84 Coronary atherosclerosis due to calcified coronary lesion; R00.1 Bradycardia, unspecified; I10 Essential (primary) hypertension; I07.1 Rheumatic tricuspid insufficiency; E78.00 Pure hypercholesterolemia, unspecified; D72.829 Elevated white blood cell count, unspecified; G47.33 Obstructive sleep apnea (adult) (pediatric); R73.03 Prediabetes; I25.2 Old myocardial infarction; F41.9 Anxiety disorder, unspecified; K21.9 Gastro-esophageal reflux disease without esophagitis; Z79.82 Long term (current) use of aspirin; Z79.899 Other long term (current) drug therapy; Z86.711 Personal history of pulmonary embolism; Z87.01 Personal history of pneumonia (recurrent); Z71.3 Dietary counseling and surveillance; Y84.0 Cardiac catheterization as the cause of abnormal reaction of the patient, or of later complication, without mention of misadventure at the time of the procedure; Z95.5 Presence of coronary angioplasty implant and graft; Z82.49 Family history of ischemic heart disease and other diseases of the circulatory system
CPT/HCPCS: 71045; 71046; 80048; 80053; 80061; 80074; 81001; 82330; 82805; 83036; 83735; 84443; 85025; 85027; 85520; 85610; 85730; 86850; 86891; 86900; 86901; 86920; 87070; 87635; 93306; 93458; 93880; 93970; 94002; 94640; 94660

== ENCOUNTER → 2022-03-30 | Outpatient (CLI) | payer MEDICARE ==
[2022-03-30 18:05] LABS: Basophils # (A) 0.03 X 10*3/uL (0.00-0.10); Basophils % (A) 0.4 %; Eosinophils # (A) 0.02 X 10*3/uL (0.04-0.35); Eosinophils % (A) 0.3 %; HCT 35.2 % (37.2-46.3); Immature Grans, Automated 0.6 %; Lymphocytes # (A) 1.22 X 10*3/uL (0.90-5.00); Lymphocytes % (A) 15.6 %; MCHC 31.3 g/dL (32.0-37.0); MCV 99.2 fL (80.0-97.0); Mean Platelet Volume 12.4 fL (9.5-12.2); Monocytes # (A) 0.81 X 10*3/uL (0.20-1.00); Monocytes % (A) 10.3 %; NRBC Per 100 WBC 0 /100 WBCS (0.0-0.0); Neutrophils # (A) 5.71 X 10*3/uL (1.80-7.70); Neutrophils % (A) 72.8 %; Platelet Count 230 X 10*3/uL (140-440); RBC 3.55 X 10*6/uL (4.10-5.20); RDW 13.5 % (11.5-14.5); WBC 7.84 X 10*3/uL (4.50-10.00)
[2022-03-30 19:35] LABS: African American GFR (CKD) 57.5 (60.0-200.0); Albumin/Globulin Ratio 1.87 (1.60-3.17); BUN/Creat Ratio 9.91 Ratio (12.00-20.00); Blood Urea Nitrogen 10.8 mg/dL (9.0-27.0); Calcium 9.2 mg/dL (8.7-10.3); Carbon Dioxide 20.9 mmol/L (20.0-27.5); Globulin 2.1 g/dL (1.6-3.3); Non-African American GFR(CKD) 49.6 (60.0-200.0); Potassium 5.3 mmol/L (3.5-5.5); Total Bilirubin 0.9 mg/dL (0.30-1.20); Total Protein 6.1 g/dL (6.2-8.2)
== END | disposition home or self-care (01) ==
LOC: LABWHC1 11:40
PROVIDERS: ATTEND Nurse Practitioner Family
DX: J30.89 Other allergic rhinitis (principal)
CPT/HCPCS: 36415; 80053; 85025

== ENCOUNTER 2022-04-06 10:42 | Emergency (ER) | payer MEDICARE ==
--- NOTE | 2022-04-06 12:00 | ED ---
Extremity Problem HPI - General Chief complaint: Extremity Problem,Nontraumatic Stated complaint: 2wk post triple bypass, weakness Time Seen by Provider: 04/06/22 11:33 Source: patient, RN notes reviewed Mode of arrival: wheelchair Limitations: no limitations - History of Present Illness Initial comments: 76-year-old female presents emergency Department chief complaint of leg pain. Patient states that she is 2 weeks status post CABG triple-vessel Dr. Squires. Patient states that she recently started doing some therapy at home states that she's developed left heel pain, right knee pain. Patient states it's very painful difficult to move. Patient was advised to be referred for DVT. Patient denies any skin color changes denies fevers or chills denies any increasing shortness breath or chest pain. Patient states her gimp tacker Dr. Barajas denies any other associated complaints. - Related Data Home Medications Medication Instructions Recorded Confirmed Meclizine [Antivert] 12.5 mg PO TID PRN 02/18/14 03/18/22 Multivitamins, Thera [Multivitamin 1 each PO DAILY@1200 02/18/14 03/18/22 (formulary)] [place]-3 Fatty Acids/Fish Oil [Fish 1 each PO DAILY 02/18/14 03/18/22 Oil 1,000 mg Softgel] Omeprazole [PriLOSEC] 20 mg PO AC-BRKFST 02/18/14 03/18/22 ALPRAZolam [Xanax] 0.5 mg PO HS PRN 03/18/22 03/18/22 Calcium Carbonate [Calcium] 500 mg PO DAILY 03/18/22 03/18/22 Melatonin [Melatonin Chew] 2.5 mg PO HS 03/18/22 03/18/22 traMADol HCL 50 mg PO Q6H 03/18/22 03/18/22 Previous Rx's Medication Instructions Recorded Acetaminophen Tab [Tylenol] 650 mg PO Q4HR PRN tab 03/23/22 Apixaban [Eliquis] 5 mg PO BID #60 tab 03/23/22 Aspirin [Adult Low Dose Aspirin EC] 81 mg PO DAILY #30 tab 03/23/22 Atorvastatin [Lipitor] 40 mg PO HS #30 tab 03/23/22 Furosemide [Lasix] 20 mg PO DAILY #7 tab 03/23/22 Metoprolol Tartrate [Lopressor] 25 mg PO BID #60 tab 03/23/22 Potassium Chloride ER [K-Dur 10] 10 meq PO DAILY #7 tab 03/23/22 Sennosides-Docusate Sodium 2 each PO HS #14 tab 03/23/22 [Senokot-S] amLODIPine [Norvasc] 5 mg PO DAILY@1200 #30 tab 03/23/22 Allergies Allergy/AdvReac Type Severity Reaction Status Date / Time No Known Allergies Allergy Verified 04/06/22 10:58 Review of Systems ROS Statement: Those systems with pertinent positive or pertinent negative responses have been documented in the HPI. ROS Other: All systems not noted in ROS Statement are negative. Past Medical History Past Medical History: Coronary Artery Disease (CAD), Chest Pain / Angina, Hyperlipidemia, Hypertension, Myocardial Infarction ([place]), Pulmonary Embolus (PE), Sleep Apnea/CPAP/BIPAP Last Myocardial Infarction Date:: 02/18/14 History of Any Multi-Drug Resistant Organisms: None Reported Past Surgical History: Coronary Bypass/CABG, Heart Catheterization With Stent, Hysterectomy Past Anesthesia/Blood Transfusion Reactions: No Reported Reaction Date of Last Stent Placement:: 02/18/14 Past Psychological History: No Psychological Hx Reported Smoking Status: Never smoker Past Alcohol Use History: None Reported Past Drug Use History: None Reported - Past Family History Father Family Medical History: Myocardial Infarction ([place]) Additional Family Medical History / Comment(s): Premature coronary artery disease, multiple myocardial infarctions, at 66 Mother Family Medical History: Cancer, Vascular Disorder General Exam Limitations: no limitations General appearance: alert, in no apparent distress Head exam: Present: atraumatic, normocephalic, normal inspection Respiratory exam: Present: normal lung sounds bilaterally. Absent: respiratory distress, wheezes, rales, rhonchi, stridor Cardiovascular Exam: Present: regular rate, normal rhythm, normal heart sounds. Absent: systolic murmur, diastolic murmur, rubs, gallop, clicks GI/Abdominal exam: Present: soft, normal bowel sounds. Absent: distended, tenderness, guarding, rebound, rigid Extremities exam: Present: other (Mild tenderness to the right popliteal region, no erythema surgical site so the left lower leg her left arm, pulse palpable) Neurological exam: Present: alert Skin exam: Present: warm, dry, intact, normal color. Absent: rash Course Vital Signs 04/06/22 10:54 Temperature 98 F Pulse Rate 92 Respiratory 20 Rate Blood Pressure 123/75 O2 Sat by Pulse 97 Oximetry Medical Decision Making - Medical Decision Making 76-year-old female presented emergency department for evaluation leg pain. 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 Patient has pulses are equal and lower extremity. Patient's case updated 2 abdominal ache with cardiothoracic who came and evaluated the patient, discussed questions regarding patient's surgery with patient and family. Patient is stable for discharge return parameters were discussed. Disposition Clinical Impression: Bakers cyst, Leg pain, S/P CABG x 3 Disposition: HOME SELF-CARE Condition: Stable Instructions (If sedation given, give patient instructions): Mckeon Cyst (ED) Additional Instructions: Please return to the Emergency Department if symptoms worsen or any other concerns. Is patient prescribed a controlled substance at d/c from ED?: No Referrals: Elvin Patino III, MD [Primary Care Provider] - 1-2 days Aubrey Núñez MD [Medical Doctor] - 1-2 days Alberto Squires MD [STAFF PHYSICIAN] - 1-2 days Time of Disposition: 13:08
--- NOTE | 2022-04-06 12:35 | US ---
EXAMINATION TYPE: US venous doppler duplex LE BI DATE OF EXAM: 04/06/2022 12:21 PM COMPARISON: NONE CLINICAL HISTORY: pain s/p CABG. Pt states bilateral leg pain SIDE PERFORMED: Bilateral TECHNIQUE: The lower extremity deep venous system is examined utilizing real time linear array sonog justice with graded compression, doppler sonography and color-flow sonography. VESSELS IMAGED: Common Femoral Vein Deep Femoral Vein Greater Saphenous Vein * Femoral Vein Popliteal Vein Small Saphenous Vein * Proximal Calf Veins (* superficial vessels) Right Leg: Negative for DVT, proximal calf veins not visualized due to large mckeon's cyst, Probable Mckeon's cyst right pop fossa= 8.6 x 2.3 x 4.1 cm Left Leg: Negative for DVT Grayscale, color doppler, spectral doppler imaging performed of the deep veins of the lower extremiti es. There is normal flow, compressibility, vascular waveforms. IMPRESSION: 1. No evidence of deep vein thrombosis in the bilateral lower extremity's. 2. Limited evaluation of the right popliteal fossa vasculature due to large popliteal fossa cyst.
[2022-04-06 13:53] VITALS: BP 147/75; PULSE 78; RESP 16; TEMP 98.2
== END 2022-04-06 13:52 | disposition home or self-care (01) ==
LOC: EC 10:42
DX: M71.21 Synovial cyst of popliteal space [Baker], right knee (principal); M79.605 Pain in left leg; I25.10 Atherosclerotic heart disease of native coronary artery without angina pectoris; I10 Essential (primary) hypertension; I25.2 Old myocardial infarction; G47.30 Sleep apnea, unspecified; Z95.1 Presence of aortocoronary bypass graft; Z79.899 Other long term (current) drug therapy; Z79.891 Long term (current) use of opiate analgesic
CPT/HCPCS: 93970; 99284

== ENCOUNTER 2022-07-08 06:48 | Day surgery (SDC) | payer MEDICARE ==
[2022-07-08] MEDS ORDERED: LACTATED RINGERS 1,000 ML IV ONE (07:45)
[2022-07-08 08:04] VITALS: TEMP 98
[2022-07-08] MEDS ORDERED: PROPOFOL 10 MG/ML 20 ML VIAL IV ONE (08:25)
--- NOTE | 2022-07-08 09:42 | CE ---
CARDIAC ELECTROPHYSIOLOGY REPORT PROCEDURE PERFORMED: Electrical cardioversion. INDICATION: Persistent atrial fibrillation. CLINICAL INFORMATION: Ms. Shirley is a 76-year-old lady with a history of ischemic cardiomyopathy, ejection fraction in the 40% to 45% range with previous NH and bypass surgery and PCI. Her bypass surgery was performed in February 2022. She has been in and out of atrial fibrillation and lately more persistent. She was advised electrical cardioversion after optimal anticoagulation and brought in for the procedure. PROCEDURE NOTE: Under the influence of [id number] intravenous anesthetic agent with the attendance of the anesthesiologist, a single shock was delivered with anterior and posterior patches of 120 joules. She converted to sinus rhythm, remained in sinus bradycardia at a rate of about 44 beats per minute. Blood pressure was about 90/60. She received 1 dose of phenylephrine. The pressure came to the 120 range. She is hemodynamically stable. Neurologically intact. We will discontinue amlodipine, Lasix, and potassium and decreased the metoprolol tartrate to 25 mg in the morning only from tomorrow. No metoprolol today. She will be discharged later on today and I will see her on the . Details were discussed with the patient and her friend and neighbor who brought her for the procedure. MMODL / IJN: [id number] /
[2022-07-08 10:09] VITALS: RESP 18
[2022-07-08 10:23] VITALS: BP 119/65; PULSE 73
== END 2022-07-08 10:43 | disposition home or self-care (01) ==
LOC: OR 06:48
PROVIDERS: ATTEND Internal Medicine Interventional Cardiology
DX: I48.19 Other persistent atrial fibrillation (principal); I25.5 Ischemic cardiomyopathy; I25.2 Old myocardial infarction; Z95.1 Presence of aortocoronary bypass graft; Z95.5 Presence of coronary angioplasty implant and graft; I10 Essential (primary) hypertension; E78.5 Hyperlipidemia, unspecified; I25.10 Atherosclerotic heart disease of native coronary artery without angina pectoris; G47.33 Obstructive sleep apnea (adult) (pediatric); Z99.89 Dependence on other enabling machines and devices; Z86.711 Personal history of pulmonary embolism; K21.9 Gastro-esophageal reflux disease without esophagitis; Z79.1 Long term (current) use of non-steroidal anti-inflammatories (NSAID); Z79.01 Long term (current) use of anticoagulants; Z79.82 Long term (current) use of aspirin; Z79.899 Other long term (current) drug therapy; M10.9 Gout, unspecified; I49.3 Ventricular premature depolarization
CPT/HCPCS: 92960; 93005; J2704

== ENCOUNTER → 2022-09-09 | Outpatient (CLI) | payer MEDICARE ==
[2022-09-09 20:57] LABS: African American GFR (CKD) 72.5 (60.0-200.0); Anion Gap 11.3 mmol/L (10.00-18.00); Blood Urea Nitrogen 13.7 mg/dL (9.0-27.0); Carbon Dioxide 25.7 mmol/L (20.0-27.5); Non-African American GFR(CKD) 62.5 (60.0-200.0); Potassium 4.6 mmol/L (3.5-5.5)
[2022-09-09 21:08] LABS: HCT 39.4 % (37.2-46.3); HGB 12.2 g/dL (12.0-15.0); MCH 28.6 pg (27.0-32.0); MCV 92.3 fL (80.0-97.0); Mean Platelet Volume 13.3 fL (9.5-12.2); NRBC Per 100 WBC 0 /100 WBCS (0.0-0.0); Platelet Count 126 X 10*3/uL (140-440); RBC 4.27 X 10*6/uL (4.10-5.20); RDW 14.3 % (11.5-14.5); WBC 7.58 X 10*3/uL (4.50-10.00)
== END | disposition home or self-care (01) ==
LOC: LABPAT 12:49
PROVIDERS: ATTEND Internal Medicine Clinical Cardiac Electrophysiology
DX: Z01.812 Encounter for preprocedural laboratory examination (principal); I48.19 Other persistent atrial fibrillation; I49.5 Sick sinus syndrome
CPT/HCPCS: 36415; 80051; 82565; 84520; 85027

== ENCOUNTER 2022-09-17 07:14 | Day surgery (SDC) | payer MEDICARE ==
[2022-09-15 12:51] VITALS: BMI 39.1
[2022-09-17] MEDS ORDERED: SODIUM CHLORIDE 0.9% 1,000 ML IV ONE (07:35)
[2022-09-17] MEDS ORDERED: HYDROmorphone (PF) 1 MG/ML ONE (09:20)
[2022-09-17] MEDS ORDERED: PHENYLEPHRINE-0.9% NACL SYG 1,000 MCG/10 ML SYRINGE ONE (09:20)
[2022-09-17] MEDS ORDERED: MIDAZOLAM 2 MG/2 ML VIAL ONE (09:20)
[2022-09-17] MEDS ORDERED: SUCCINYLCHOLINE CHLORIDE 200 MG/10 ML VIAL IV ONE (09:20)
[2022-09-17] MEDS ORDERED: HEPARIN SODIUM,PORCINE 10,000 UNIT/ML 1 ML VIAL ONE (09:20)
[2022-09-17] MEDS ORDERED: fentaNYL (PF) 50 MCG/ML 2 ML AMP ONE (09:20)
[2022-09-17] MEDS ORDERED: PROPOFOL 10 MG/ML 20 ML VIAL IV ONE (09:20)
[2022-09-17] MEDS ORDERED: FUROSEMIDE 10 MG/ML 2 ML VIAL ONE (09:20)
[2022-09-17] MEDS ORDERED: LIDOCAINE 2% INJ 20 MG/ML (2 ML VIAL) ONE (09:20)
[2022-09-17] MEDS ORDERED: HEPARIN SOD,PORK IN 0.45% NACL 25,000 UNIT in 0.45% NACL 1 250ML.BAG IV ONE (09:40)
[2022-09-17] MEDS ORDERED: HEPARIN SODIUM (1,000 UNIT/ML) 1,000 UNIT in SODIUM CHLORIDE 0.9% 1,000 ML IRRIGATION ONE (09:40)
[2022-09-17] MEDS ORDERED: LIDOCAINE 1% INJ 10MG/ML (20 ML MDV) ONE (10:08)
--- NOTE | 2022-09-17 10:08 | P.HPCAR ---
History of Present Illness This is Dr. Luque dictating an H/P on this patient The patient was interviewed and examined IMPRESSION / ASSESSMENT: Persistent atrial fibrillation Persistent atrial tachycardia Status post Maze procedure during coronary artery bypass grafting Sick sinus syndrome and sinus bradycardia Reduced LV systolic function ejection fraction 45% Pulmonary hypertension Moderate left atrial enlargement PLAN: A. fib ablation and mapping of an atrial tachycardia Continue ELIQUIS and aspirin and statins HPI Patient continues to complain of palpitations No syncope no chest pain no dizziness or lightheadedness Re: Breath and exertion No fever chills cough expectoration ROS: No fever chills or rigors, no cough, phlegm or expectoration, no nausea, vomiting or diarrhea, no hematuria, dysuria, no musculoskeletal complaints, no strokes or seizures, no skin lesions. EXAMINATION: Pulse rate 112 beats a minute, respiratory rate Blood pressure 170/96. His mercury afebrile Breath sounds are reduced bilaterally Normal heart sounds no murmurs REVIEW OF LABS, ECG & MEDICAL DATA medications include aspirin 81 mg by mouth daily ELIQUIS 5 mg twice daily Lasix 20 mg by mouth every morning Metoprolol 25 mg in the morning Atorvastatin 40 mg daily at bedtime Physical Exam Vitals: Vital Signs Temp Pulse Resp BP Pulse Ox 09/17/22 08:05 98.1 F 112 H 18 170/96 97 Intake and Output 09/16/22 09/17/22 09/17/22 22:59 06:59 14:59 Intake Total 50 Balance 50 Intake: IV 50 Other: Weight 115.6 kg Past Medical History Past Medical History: Atrial Fibrillation, Coronary Artery Disease (CAD), Chest Pain / Angina, GERD/Reflux, Hyperlipidemia, Hypertension, Myocardial Infarction (AR), Osteoarthritis (OA), Pulmonary Embolus (PE), Sleep Apnea/CPAP/BIPAP Additional Past Medical History / Comment(s): See Dr Luque's H&P. CPAP use, arthritis in knees, hx vertigo, insomnia. Last Myocardial Infarction Date:: 02/18/14 History of Any Multi-Drug Resistant Organisms: None Reported Past Surgical History: Breast Surgery, Coronary Bypass/CABG, Heart Catheterization With Stent, Hysterectomy Additional Past Surgical History / Comment(s): Colonoscopy, sigmoidoscopy, left leg achilles tendon repair, bilateral carpal tunnel surgery, lumpectomy, 3 vessel CABG 03/18/22, Cardioversion 07/08/22. Past Anesthesia/Blood Transfusion Reactions: No Reported Reaction Date of Last Stent Placement:: 02/18/14 Past Psychological History: No Psychological Hx Reported Smoking Status: Never smoker Past Alcohol Use History: None Reported Past Drug Use History: None Reported - Past Family History Father Family Medical History: Myocardial Infarction (AR) Additional Family Medical History / Comment(s): Premature coronary artery disease, multiple myocardial infarctions, at 66 yrs of age. Mother Family Medical History: Cancer, Vascular Disorder Additional Family Medical History / Comment(s): Breast cancer. Physical Examination Vital Signs Temp Pulse Resp BP Pulse Ox 09/17/22 08:05 98.1 F 112 H 18 170/96 97 Intake and Output 09/16/22 09/17/22 09/17/22 22:59 06:59 14:59 Intake Total 50 Balance 50 Intake: IV 50 Other: Weight 115.6 kg Results Current Medications Generic Name Dose Route Start Last Admin Trade Name Freq PRN Reason Stop Dose Admin Sodium Chloride 1,000 mls @ 50 mls/hr 09/17/22 05:54 Saline 0.9% IV 10/17/22 05:55 .Q20H MAYANK Intake and Output 09/16/22 09/17/22 09/17/22 22:59 06:59 14:59 Intake Total 50 Balance 50 Intake: IV 50 Other: Weight 115.6 kg Patient Weight 09/18/22 06:59 Weight 115.6 kg
[2022-09-17] MEDS ORDERED: LACTATED RINGERS 1,000 ML IV ONE (11:50)
[2022-09-17] MEDS ORDERED: IOPAMIDOL-370 100ML BTL INJ ONE (14:08)
[2022-09-17] MEDS ORDERED: ACETAMINOPHEN TAB 325 MG TAB PO PRN (15:13)
[2022-09-17] MEDS ORDERED: ACETAMINOPHEN IV (For NPO) 1,000 MG in EMPTY BAG 1 BAG IVPB ONE (15:30)
[2022-09-17] MEDS: SODIUM CHLORIDE 0.9% 1,000 ML IV SCH (16:03)
[2022-09-17] MEDS ORDERED: METOPROLOL TARTRATE 50 MG TAB PO STA (17:46)
--- NOTE | 2022-09-17 19:40 | P.EPPROC ---
- EP Procedure Note Electrophysiology Procedure Note: PROCEDURE A. fib ablation with pulmonary vein isolation, linear ablation in the left atrial roof and focal atrial tachycardia ablation close to the His bundle DIAGNOSIS Persistent Atrial fibrillation, symptomatic, refractory to therapy RESULT No left atrial appendage mass seen on intracardiac echo, left atrial stump noted, despite left atrial appendectomy intraoperatively Successful A. fib ablation/pulmonary vein isolation of all veins using cryo- ablation Complete entrance block in all 4 veins confirmed No evidence for phrenic nerve injury Left atrial roof ablation resulting in termination of tachycardia, roof reentry Ablation of focal atrial tachycardia the anterior septum close to the His bundle area, from the left septum only, with transient termination only No ablation performed at the earliest site noted on the right side which is extremely close to the His bundle area, high risk for AV block and need for permanent pacing High risk for AV block with right-sided ablation Esophageal deflection NO Recommendation The patient's pulmonary veins have been isolated. Antral level. The left atrial roof ablation is complete She has a focal atrial tachycardia the earliest activation site close to the His bundle area in the right atrium Ablation at the site carries a high risk of AV block and need for permanent pacing Ablation of the site from the left atrial septum resulted in transient termination of tachycardia Permanent pacemaker with biventricular pacing and ablation of focal atrial tachycardia It is very likely that she will have complete heart block as a result of this ablation and therefore a biventricular pacemaker would be indicated to avoid 100% RV pacing Patient is status post left atrial appendectomy during cardiac surgery Follow-up she has a prominent left atrial stump and therefore anticoagulation should be continued PROCEDURE DETAILS Written informed consent prior to procedure. Patient brought to the EP lab. General anesthesia given. Heparin administered. A city maintained above 300 seconds Both groins prepped and draped per protocol and venous sheaths placed. Esophagus intubated, circa catheter for temperature monitoring an endoscope for possible esophageal deflection. Phrenic nerve monitoring performed. Esophageal temperature monitoring performed. Esophageal deflection performed if circa catheter overlapping with the balloon or circa temperature less than 27.5C Intracardiac echocardiography performed. Pericardium evaluated. Left atrial appendage evaluated. Left atrium evaluated along with pulmonary veins Transseptal catheterization performed under fluoroscopic guidance and intracardiac echo guidance Cryoablation sheath exchanged, balloon catheter along with achieve catheter placed in the left atrium. Pulmonary veins isolated in the following sequence: Left superior pulmonary vein followed by left inferior pulmonary vein, followed by right inferior pulmonary vein and lastly right superior pulmonary vein. Phrenic nerve stimulation along with capture thresholds within the SVC and right superior pulmonary vein to identify the phrenic nerve proximity to the cryo- balloon. Pulmonary veins isolated and confirmed with entrance and exit block. Phrenic nerve integrity confirmed at the end of the procedure Ablation of the left atrial roof performed with sequential lesions from the left superior to the right superior pulmonary veins. Ablation of the electrograms confirmed. Termination of roof reentry Ablation of the left atrial septum performed with cannulation of the superior branch of the right inferior or the inferior branch of the right superior vein to achieve ablation of the posterior septum of the left atrium. Ablation of electrograms confirmed Patient remained in the atrial tachycardia cycle length of about 450 ms Left and right atria both mapped Noncoronary sinus mapped with intracardiac echo RF ablation applied only from the left septum since the earliest site of activation which was in the right atrium, was extremely close to the His bundle area High risk for AV block RF ablations on the left side of the septum resulted in temporary, transient termination only Diagnostic catheters for the high right atrium, His bundle, coronary sinus placed. LA and RA pressures recorded RA pressure: 09/11/ LA pressure: 28//17 Diagnostic EP study with coronary sinus pacing and recording Baseline measurements: Tachycardia cycle length 450-465 ms, QRS 93, QT 316 ms Normal AH and HV intervals Venous sheaths were removed and hemostasis assured with a closure device. Patient extubated and transferred to recovery PROCEDURES PERFORMED Diagnostic EP study CS pacing and recording Left and right transseptal catheterization Catheter the mapping of the tachycardia Intracardiac echocardiography Pulmonary vein isolation with transseptal and comprehensive EPS, [id number] Left atrial roof line, +[id number], with termination of the roof reentry Linear ablation, left atrium, +[id number] Focal ablation in the left atrium, [id number] Electrical cardioversion with a synchronized shock across the chest [id number]
[2022-09-17] MEDS: APIXABAN 5 MG TAB PO SCH (20:25)
[2022-09-17] MEDS ORDERED: ATORVASTATIN 40 MG TAB PO SCH (21:00)
[2022-09-18] MEDS: SODIUM CHLORIDE 0.9% 1,000 ML IV SCH (00:45)
[2022-09-18 02:31] VITALS: TEMP 98.4
[2022-09-18] MEDS ORDERED: PANTOPRAZOLE 40 MG TABLET PO SCH (07:30)
[2022-09-18 07:54] VITALS: BP 118/71; PULSE 80; RESP 18
[2022-09-18] MEDS: APIXABAN 5 MG TAB PO SCH (08:13)
[2022-09-18] MEDS ORDERED: FUROSEMIDE 20 MG TAB PO SCH (09:00)
[2022-09-18] MEDS ORDERED: ASPIRIN 81 MG PO SCH (09:00)
[2022-09-18] MEDS ORDERED: METOPROLOL TARTRATE 25 MG TAB PO SCH (09:00)
--- NOTE | 2022-09-18 10:26 | P.PN ---
Progress Note - Text Patient has persistent symptomatic atrial fibrillation, status post maze procedure Yesterday she underwent successful pulmonary vein isolation She also underwent ablation of the left atrial roof, linear ablation which result in termination of tachycardia However she also has an focal atrial tachycardia Unfortunately the earliest activation site is extremely close to the His bundle I mapped this from the left septum, from the right septum and with intracardiac echo assess the proximity of the noncoronary sinus in relation to these 2 sites Non-Danish sinus was not mapped at this time. She has a history of coronary artery disease and aortic atherosclerosis I did ablate the focal area area from the left side but this would only result in transient termination RF ablation was not applied from the right anterior superior area because of a risk to the AV node and His bundle area which would be almost definite She is rate controlled at this time and is back on anticoagulation If she has symptoms of shortness of breath on exertion tiredness and fatigue or if her ventricular rates are elevated with exertion despite beta blockers, I would proceed with a biventricular pacemaker implantation followed by ablation of the focal atrial tachycardia which would most definitely result in complete heart block and the patient will be rendered pacemaker dependent Patient has reduced LV systolic function ejection fraction 40-45% with a mildly dilated RV and therefore she should receive a biventricular device for pacing This was discussed with the patient detail options of rate control and anticoagulation, antiarrhythmic drug therapy and a pacing ablate strategy were discussed Pros and cons discussed especially in relation to the use of amiodarone and sotalol and the inherent risks which I believe would be higher with the use of these drugs and is still necessitate the need for permanent pacing as a result of bradycardia that they would induce during sinus In addition although she had a left atrial appendage appendectomy performed intraoperatively during coronary artery bypass grafting him a she still has a large residual left atrial appendage stump and therefore anticoagulation needs to continue
--- NOTE | 2022-09-18 10:32 | P.DS ---
Providers Attending physician: Colby Luque Primary care physician: [facility] Course: Patient is doing well post A. fib ablation Heart sounds are irregular She is in the atrial tachycardia with resting heart rates are controlled Yesterday she had elevated heart rates in the increased dose of beta blockers No murmurs no gallops Groins if healed well no hematoma Resting heart rates in the 80s, blood pressure 118/71 mmHg afebrile Impression Patient has persistent symptomatic atrial fibrillation Yesterday she underwent successful pulmonary vein isolation She also underwent ablation of the left atrial roof, linear ablation which result in termination of tachycardia However she also has an incessant, focal atrial tachycardia Unfortunately the earliest activation site is extremely close to the His bundle I mapped this from the left septum, from the right septum and with intracardiac echo assess the proximity of the noncoronary sinus in relation to these 2 sites. Activation mapping of the Non-Coronary sinus was not performed at this time. She has a history of coronary artery disease, coronary artery bypass grafting and aortic atherosclerosis I did ablate the focal area area from the left side but this would only result in transient termination RF ablation was not applied from the right anterior septal area because of a risk to the AV node and His bundle area, which would be almost definitely associated with complete heart block She is rate controlled at this time at rest and is back on anticoagulation If she has symptoms of shortness of breath on exertion tiredness and fatigue or if her ventricular rates are elevated with exertion despite beta blockers, I would proceed with a biventricular pacemaker implantation followed by ablation of the focal atrial tachycardia which would most definitely result in complete heart block and the patient will be rendered pacemaker dependent Patient has reduced LV systolic function ejection fraction 40-45% with a mildly dilated RV and therefore she should receive a biventricular device for pacing This was discussed with the patient detail options of rate control and anticoagulation, antiarrhythmic drug therapy and a pacing ablate strategy were discussed Pros and cons discussed especially in relation to the use of amiodarone and sotalol and the inherent risks which I believe would be higher with the use of these drugs and is still necessitate the need for permanent pacing as a result of bradycardia that they would induce during sinus She underwent left atrial appendectomy during coronary artery bypass grafting but intracardiac echo revealed a fairly large left atrial appendage stump, therefore she needs to continue anticoagulation lifelong For now I would recommend continuing anticoagulation and rate control Follow-up Holter monitor for 7 days after a few weeks Follow Dr. Barajas next week Follow Dr. Luuqe in about 4-6 weeks for reevaluation and discussion regarding the above The patient like to think about all the options presented Plan - Discharge Summary Discharge Rx Participant: No New Discharge Prescriptions: Continue Multivitamins, Thera [Multivitamin (formulary)] 1 each PO QAM Meclizine [Antivert] 12.5 mg PO TID PRN PRN Reason: Vertigo Omeprazole [PriLOSEC] 20 mg PO AC-BRKFST Franklin-3 Fatty Acids/Fish Oil [Fish Oil 1,000 mg Softgel] 1 each PO QAM ALPRAZolam [Xanax] 0.5 - 1 mg PO HS PRN PRN Reason: Anxiety Glucosamine-Chondr 500-400Mg 2 each PO DAILY Metoprolol Tartrate [Lopressor] 25 mg PO QAM Furosemide [Lasix] 20 mg PO QAM Apixaban [Eliquis] 5 mg PO BID #60 tab Atorvastatin [Lipitor] 40 mg PO HS #30 tab Sennosides-Docusate Sodium [Senokot-S] 2 each PO HS #14 tab Aspirin [Adult Low Dose Aspirin EC] 81 mg PO QAM traMADol HCL 50 mg PO Q6H PRN PRN Reason: Pain Discharge Medication List Meclizine [Antivert] 12.5 mg PO TID PRN 02/18/14 [History] Multivitamins, Thera [Multivitamin (formulary)] 1 each PO QAM 02/18/14 [History] Franklin-3 Fatty Acids/Fish Oil [Fish Oil 1,000 mg Softgel] 1 each PO QAM 02/18/14 [History] Omeprazole [PriLOSEC] 20 mg PO AC-BRKFST 02/18/14 [History] ALPRAZolam [Xanax] 0.5 - 1 mg PO HS PRN 03/18/22 [History] Apixaban [Eliquis] 5 mg PO BID #60 tab 03/23/22 [Rx] Atorvastatin [Lipitor] 40 mg PO HS #30 tab 03/23/22 [Rx] Sennosides-Docusate Sodium [Senokot-S] 2 each PO HS #14 tab 03/23/22 [Rx] Glucosamine-Chondr 500-400Mg 2 each PO DAILY 03/13/23 [History] Metoprolol Tartrate [Lopressor] 25 mg PO QAM 07/08/22 [History] Aspirin [Adult Low Dose Aspirin EC] 81 mg PO QAM 09/15/22 [History] Furosemide [Lasix] 20 mg PO QAM 09/15/22 [History] traMADol HCL 50 mg PO Q6H PRN 09/15/22 [History] Follow up Appointment(s)/Referral(s): Colby Luque MD [STAFF PHYSICIAN] - 4 Weeks (Office will call with appointment time and date.) Activity/Diet/Wound Care/Special Instructions: Post EP study - Ablation instructions 1. Keep access sites dry for 2 days. 2. No heavy lifting or straining for 2 days. 3. Avoid bending the hips repeatedly for 2 days. 4. You may go up and down stairs slowly Call if the following is noted 1. Bleeding, increasing swelling or pain at the access sites. 2. Increasing chest discomfort, especially upon taking a deep breath. 3. Increasing shortness of breath, at rest or with exertion. 4. Undue cough / phlegm 5. Difficulty or pain while swallowing. 6. Pain or change in color in the extremities. 7. Fever, chills, rigors. 8. Increasing headache or neurologic symptoms. 9. Dizziness, fainting, palpitations Discharge Disposition: HOME SELF-CARE
== END 2022-09-18 11:35 | disposition home or self-care (01) ==
LOC: CATHEP 07:14 → 6NMEDSUR 14:03 → CATHEP 09-18 11:35
PROVIDERS: ATTEND Internal Medicine Clinical Cardiac Electrophysiology
DX: I48.19 Other persistent atrial fibrillation (principal); I47.1 Supraventricular tachycardia; I44.30 Unspecified atrioventricular block; Z95.1 Presence of aortocoronary bypass graft; I49.5 Sick sinus syndrome; I27.20 Pulmonary hypertension, unspecified; I25.10 Atherosclerotic heart disease of native coronary artery without angina pectoris; E78.5 Hyperlipidemia, unspecified; K21.9 Gastro-esophageal reflux disease without esophagitis; I25.2 Old myocardial infarction; I10 Essential (primary) hypertension; M19.90 Unspecified osteoarthritis, unspecified site; Z86.711 Personal history of pulmonary embolism; G47.33 Obstructive sleep apnea (adult) (pediatric); G47.00 Insomnia, unspecified; Z99.89 Dependence on other enabling machines and devices; Z79.01 Long term (current) use of anticoagulants; Z95.5 Presence of coronary angioplasty implant and graft; Z82.49 Family history of ischemic heart disease and other diseases of the circulatory system; Z88.6 Allergy status to analgesic agent
CPT/HCPCS: 93656; 93657; 93655; 86900; 86901; 86850; C1894 ×2; C1769 ×3; C1760; C1730 ×2; C1731; C1759; C1893; C1733; C1766; C1732; J1644 ×2; J0131; Q9967

== ENCOUNTER → 2022-11-27 | Outpatient (CLI) | payer MEDICARE ==
--- NOTE | 2022-11-27 11:03 | MM ---
Reason for Exam: Additional evaluation requested from prior study. Last mammogram was performed 1 year(s) and 2 month(s) ago. Patient History: Menarche at age 16. First Full-Term at age 20. Left ovary removed at age 51. Right ovary removed at age 51. Hysterectomy at age 51. Postmenopausal. Estrogen for 3 years from age 51 until age 54. Progesterone for 3 years from age 51 until age 54. 2016, Benign Excisional Biopsy on the left side. 09/10/2015, High risk Core Biopsy on the left side. Maternal aunt had breast cancer, age 60. Maternal aunt had breast cancer, age 62. Mother had breast cancer, age 82. Risk Values: Jessy 5 year model risk: 4.5%. NCI Lifetime model risk: 9.5%. Prior Study Comparison: 09/10/2016 Bilateral Diagnostic Mammogram, [facility]. 03/15/2017 Left Diagnostic Mammogram, [facility]. 11/15/2017 Bilateral Screening Mammogram, [facility]. 12/23/2018 Bilateral Screening Mammogram, [facility]. 07/05/2020 Bilateral Screening Mammogram, [facility]. 10/02/2021 Bilateral MG 3D screening mammo w/cad, [facility]. 10/07/2021 Right MG 3D work up w/cad RT, [facility]. Tissue Density: There are scattered fibroglandular densities. Findings: Analyzed By CAD. No new suspicious mass within either breast. Stable loosely grouped microcalcifications within the posterior inferior right breast. Additional stable dystrophic calcifications within the left breast. No new suspicious grouped microcalcifications. No architectural distortion. Overall Assessment: Benign, BI-RAD 2 Management: Screening Mammogram of both breasts in 1 year. A clinical breast exam by your physician is recommended on an annual basis and results should be correlated with mammographic findings. This exam should not preclude additional follow-up of suspicious palpable abnormalities. Results were given to the patient verbally at the time of exam. Note on Jessy scores and lifetime risk: 1. A Jessy score greater than 3% is considered moderate risk. If this is the case, consider specialist referral to assess eligibility for a risk reducing agent. If overall lifetime risk for the development of breast cancer is 20% or higher, the patient may qualify for future screening with alternating mammogram and breast MRI. Electronically signed and approved by: Telly Golden D.O.
== END | disposition home or self-care (01) ==
LOC: RADMAMWWP 09:53
PROVIDERS: ATTEND Family Medicine
DX: R92.8 Other abnormal and inconclusive findings on diagnostic imaging of breast (principal); Z78.0 Asymptomatic menopausal state; Z80.3 Family history of malignant neoplasm of breast
CPT/HCPCS: 77066; G0279; 77062

== ENCOUNTER → 2022-11-27 | Outpatient (CLI) | payer MEDICARE ==
[2022-11-27 16:13] LABS: HCT 40.5 % (37.2-46.3); HGB 12.7 d/dL (12.0-15.0); MCH 29.3 pg (27.0-32.0); MCHC 31.4 d/dL (32.0-37.0); MCV 93.5 FL (80.0-97.0); NRBC Per 100 WBC 0 X 10*3/uL (0.00-0.01); Platelet Count 100 X 10*3/uL (140-440); RBC 4.33 X 10*6/uL (4.10-5.20); RDW 14.1 % (11.5-14.5); WBC 7.84 X 10*3/uL (4.50-10.00)
[2022-11-27 17:15] LABS: Blood Urea Nitrogen 13.8 mg/dL (9.0-27.0); Carbon Dioxide 24.1 mmol/L (21.6-31.8); Chloride 104 mmol/L (96-109); Potassium 4.7 mmol/L (3.5-5.5); Sodium 141 mmol/L (135-145)
== END | disposition home or self-care (01) ==
LOC: LABPAT 10:53
PROVIDERS: ATTEND Internal Medicine Clinical Cardiac Electrophysiology
DX: Z01.812 Encounter for preprocedural laboratory examination (principal); I49.5 Sick sinus syndrome
CPT/HCPCS: 80051; 82565; 84520; 85027

== ENCOUNTER 2022-12-11 05:37 | Day surgery (SDC) | payer MEDICARE ==
[2022-12-11] MEDS ORDERED: SODIUM CHLORIDE 0.9% 1,000 ML IV SCH ×2 (05:56)
[2022-12-11] MEDS ORDERED: LACTATED RINGERS 1,000 ML IV SCH (05:56)
[2022-12-11] MEDS ORDERED: LIDOCAINE 1% INJ 10MG/ML (20 ML MDV) ONE ×2 (06:21→07:43)
[2022-12-11] MEDS ORDERED: MIDAZOLAM 2 MG/2 ML VIAL ONE (06:49)
[2022-12-11] MEDS ORDERED: PROPOFOL 10 MG/ML 20 ML VIAL IV ONE (06:49)
[2022-12-11] MEDS ORDERED: fentaNYL (PF) 50 MCG/ML 2 ML AMP ONE (06:49)
[2022-12-11] MEDS ORDERED: LIDOCAINE 2% INJ 20 MG/ML (2 ML VIAL) ONE (06:49)
[2022-12-11] MEDS: ceFAZolin 1 GM in SODIUM CHLORIDE 0.9% IRRIG BTL 250 ML IRRIGATION PRN ×2 (07:05→07:30)
[2022-12-11 07:31] LABS: Basophils % (A) 0 %; Eosinophils # (A) 0.1 k/uL (0-0.7); Eosinophils % (A) 1 %; HGB 13.1 gm/dL (11.4-16.0); Lymphocytes # (A) 2.6 k/uL (1.0-4.8); Lymphocytes % (A) 30 %; MCH 30.6 pg (25.0-35.0); MCHC 32.9 g/dL (31.0-37.0); Mean Platelet Volume 13.1; Monocytes # (A) 0.5 k/uL (0-1.0); Monocytes % (A) 6 %; Neutrophils # (A) 5.3 k/uL (1.3-7.7); Neutrophils % (A) 61 %; Platelet Count 108 k/uL (150-450); RDW 14.2 % (11.5-15.5); WBC 8.6 k/uL (3.8-10.6)
[2022-12-11] MEDS ORDERED: LIDOCAINE 1% INJ 10MG/ML (20 ML MDV) SQ ONE ×3 (07:39→07:55)
[2022-12-11 08:35] VITALS: BP 155/68; TEMP 97.7
[2022-12-11 08:46] LABS: Large Platelets Present; RBC Morphology Normal
[2022-12-11] MEDS ORDERED: ACETAMINOPHEN IV (For NPO) 1,000 MG in EMPTY BAG 1 BAG IVPB ONE (08:51)
[2022-12-11] MEDS ORDERED: ACETAMINOPHEN TAB 325 MG TAB PO PRN (08:51)
--- NOTE | 2022-12-11 08:57 | P.PN ---
Progress Note - Text Successful dual-chamber pacemaker implant with conduction system pacing with a left bundle pacing lead Plan IV antibiotics and discharge home by 4 PM today follow with Dr. Talavera in a week
--- NOTE | 2022-12-11 11:47 | XR ---
EXAMINATION TYPE: XR chest 1V portable DATE OF EXAM: 12/11/2022 COMPARISON: 03/23/2022 HISTORY: Postpacemaker placement TECHNIQUE: Single frontal view of the chest is obtained. FINDINGS: There is no focal air space opacity, pleural effusion, or pneumothorax seen. The cardiac silhouette size is within normal limits. The osseous structures are intact. Postoperative change including atrial appendage clip. There is a dual-lead pacemaker with the proxima l lead overlying the right atrium. The distal lead overlying the right ventricle. Diffuse osteopenia. IMPRESSION: 1. Pacemaker appears in good position with no sizable pneumothorax.
[2022-12-11] MEDS ORDERED: HYDROmorphone 1 MG/ML 1 ML SYRINGE IVP STA (16:15)
[2022-12-11] MEDS ORDERED: HYDROmorphone 1 MG/ML 1 ML SYRINGE ONE (16:17)
[2022-12-11] MEDS ORDERED: ONDANSETRON 4 MG/2 ML VIAL ONE (18:55)
[2022-12-11 20:54] VITALS: PULSE 66; RESP 14
--- NOTE | 2022-12-14 09:36 | P.EPPROC ---
- EP Procedure Note Electrophysiology Procedure Note: Diagnosis Symptomatic bradycardia, unprovoked, no triggering factors Procedure Dual-chamber pacemaker implantation with conduction system pacing (left bundle pacing) Left upper extremity venogram Details Patient was brought to the EP lab in a fasting state. Written informed consent was obtained prior to the procedure. Conscious sedation provided by MAILS SUPERVISOR. Left upper extremity venogram was performed. Patent left subclavian and axillary vein system IV antibiotics administered. Local anesthesia administered. A 4 cm incision made in the pectoral area. Subfascial pocket made. Venous accesses obtained Venous sheaths placed. Leads placed in the right heart. 2 sets of pacing cables were used; one for backup temporary pacing and the other for assessment of current of injury and signal analysis. A deflected sheath was prepped. A coronary sinus decapolar catheter was placed within this sheath. The catheter along with the sheath was then passed into the right heart, the catheter was prolapsed across the tricuspid valve, into the right ventricle and then further into the right ventricular outflow tract across the pulmonic valve into the pulmonary artery. This sheath was slid over this decapolar catheter into the RVOT. Thereafter the catheter last sheath assembly was withdrawn from the RVOT along the septum to the mid septal area. The sheath was appropriately to to map the right ventricular aspect of the septum. The decapolar catheter was withdrawn, the sheath flushed again and the screw-in pacing lead placed within the sheath. Further detailed unipolar pace-mapping of the septum was performed and once the appropriate based morphology was obtained on lead V1, the lead was screwed into the septum. The lead was screwed in 4-5 returns at a time while monitoring the current of injury, the pacing impedance changes and the paced QRS morphology. The stimulus to peak of V6 QRS was measured at each step. Once a QR or rSR pattern of paced QRS in lead V1 was obtained, a left bundle signal was sought. Impedance was measured and thresholds were measured. An impedance drop of 100-200 ohms but above 550 ohms was targeted along with an unchanged vector of the current of injury signal. The final positioning was based on the QRS morphology in lead V1 and a short stimulus to peak of the V6 QRS of less than 90 ms. The sheath was withdrawn, stability of the pacing lead deep in the septum was confirmed on DELA CRUZ and ELIZABETH views and the sheath was slipped and an adequate heel was provided for the lead. Unipolar and bipolar electrogram morphology obtained Atrial lead positioned in the right atrial appendage. Sensing, thresholds and impedances measured following positioning and securing the lead in the right atrial appendage 52 cm Med[employer]onic model #5076 P waves 3.3 mV, pacing impedance 760 ohms and pacing threshold 0.5 V at 0.4 ms The patient would repeatedly go into an atrial tachycardia with a cycle length in the 500s millisecond Antitachycardia pacing him to be repeatedly performed to determine the tachycardia and interrogated atrial lead Left bundle lead parameters. R waves 18 mV pacing impedance 589 ohms and pacing threshold 0.25 V at 0.4 ms Right bundle branch block paced morphology Short stim to V6, stable No left bundle signal noted Device lead mechanic: [facility] XT DR MRI Dual-chamber pacemaker device connected to the leads and placed in the subfascial pocket Patient tolerated the procedure well without acute complications Pacemaker programmingDDIR 60-130 ppm Paced AV delay 180 ms
== END 2022-12-11 19:19 | disposition home or self-care (01) ==
LOC: CATHEP 05:37
PROVIDERS: ATTEND Internal Medicine Clinical Cardiac Electrophysiology
DX: I47.1 Supraventricular tachycardia (principal); I45.10 Unspecified right bundle-branch block; I10 Essential (primary) hypertension; Z79.82 Long term (current) use of aspirin; Z79.899 Other long term (current) drug therapy
CPT/HCPCS: 33225; 33206; 85025; 71045; C1769 ×2; C1892 ×2; C1730; C1887; C1898; C1785; J2250; J0690; J2405; J2001 ×2; J3010; J1170; J2704

== ENCOUNTER 2023-05-10 10:11 | Day surgery (SDC) | payer MEDICARE ==
[~2023-05-10 10:11] MED LIST: ALPRAZolam 0.25 MG TAB PO PRN; ALPRAZolam 0.5 MG TAB PO PRN; ASPIRIN 325 MG TAB PO STA; NITROGLYCERIN SL TABS 0.4 MG TAB SUBLINGUAL PRN; SODIUM CHLORIDE 0.9% 1,000 ML in EMPTY BAG 1 BAG IV SCH
[2023-05-10] MEDS ORDERED: SODIUM CHLORIDE 0.9% 1,000 ML IV ONE (10:25)
[2023-05-10 10:49] VITALS: TEMP 97.3
[2023-05-10] MEDS ORDERED: VERAPAMIL 2.5 MG/ML 2 ML AMP ONE (11:41)
[2023-05-10] MEDS ORDERED: LIDOCAINE 1% INJ 10MG/ML (20 ML MDV) ONE (11:41)
[2023-05-10] MEDS ORDERED: fentaNYL (PF) 50 MCG/ML 2 ML AMP ONE (11:58)
[2023-05-10] MEDS ORDERED: fentaNYL (PF) 50 MCG/1 ML VIAL IVP ONE (12:14)
[2023-05-10] MEDS ORDERED: MIDAZOLAM 2 MG/2 ML VIAL IVP ONE (12:14)
[2023-05-10] MEDS ORDERED: LIDOCAINE 1% INJ 10MG/ML (20 ML MDV) SQ ONE (12:15)
[2023-05-10] MEDS ORDERED: IOPAMIDOL-370 100ML BTL INJ ONE (12:34)
[2023-05-10] MEDS ORDERED: traMADol 50 MG TAB PO STA (12:51)
--- NOTE | 2023-05-10 13:20 | P.CARDCATH ---
Description of Procedure: PROCEDURES PERFORMED: Left heart catheterization, bilateral coronary angiography, RUBIN to LAD, radial to OM, SVG to PDA angiography, ultrasound guided arterial access INDICATION: Abnormal stress test, increasing episodes of dyspnea on exertion and diaphoresis with exertion with mid anterior ischemia CONSENT:I have discussed the risks, benefits and alternative therapies for the above-mentioned procedure and for both sedation/analgesia as well as necessary blood product administration, if indicated, as they pertain to this patient. The patient has indicated understanding and acceptance of the risks and procedures discussed. PROCEDURE: After the risks, benefits and alternatives of the above mentioned procedure explained in detail with the patient, informed consent was obtained. Patient was taken to the catheterization lab and prepped and draped in usual fashion. Ultrasound guidance was used to assess for arterial access. 1% lidocaine was used to anesthetize the right femoral area. A 6-[place] sheath was placed in the right femoral artery using modified Seldinger technique and ultrasound guidance. Left coronary angiography was performed with a 6-[place] JL 4.0 catheter and right coronary angiography was performed with a 6-[place] FR4 catheter in various views. A 6-[place] FR4 catheter was inserted into the left v entricle and pressure measurements were obtained. SVG to PDA and left radial to OM 1 angiography was performed with a JR4 catheter. A 6-[place] I am catheter was used to engage the RUBIN to LAD and angiography was performed. The right radial sheath was removed and a TR band was placed with hemostasis achieved. The patient tolerated the procedure well. Patient was transported back to the post catheterization holding area in stable condition. Conscious Sedation: Patient was monitored under the direct supervision of myself for conscious sedation using Versed and fentanyl for a total duration of 20 minutes HEMODYNAMICS: Aorta: 138/72 LV: 134/2, LVEDP 4 SELECTIVE CORONARY ARTERIOGRAPHY: LEFT MAIN: The left main is a large caliber vessel which bifurcates into the LAD and circumflex. There is distal left main 99% stenosis. LEFT ANTERIOR DESCENDING CORONARY ARTERY: LAD is a large caliber vessel which wraps around to the apex. There is a proximal LAD 99% stenosis at the level of the left main, mid LAD 100% stenosis. LEFT CIRCUMFLEX CORONARY ARTERY: Left circumflex is a moderate caliber vessel with 100% mid circumflex stenosis. RIGHT CORONARY ARTERY: The right coronary artery is a large caliber vessel which gives off a PDA and PLV branch and is the dominant vessel. There is a distal RCA stents with 60-70% in-stent stenosis. This gives rise to the PLV however the PDA has competitive flow and no antegrade flow in the PDA. SVG to PDA: Patent Left radial to OM1: Patent RUBIN to LAD: Patent FINAL IMPRESSION: 1. [place] CAD as described above including 99% distal left main stenosis, proximal LAD 99% stenosis, mid LAD 100% stenosis, 100% mid circumflex stenosis, 60-70% distal RCA in-stent stenosis. 2. Patent grafts with RUBIN to LAD, left radial to OM, SVG to PDA 3. Low Normal left sided filling pressures PLAN: 1. Aggressive risk factor modification per most recent ACC/AHA guidelines. 2. Patient with patent grafts and possible angina from small caliber diagonal 1 branch or PLV. Ischemia in the anterior territory and would recommend medical therapy, uptitrating antianginals first. If obvious persistent angina despite this may consider complex stenting of left main to LAD however only a small caliber diagonal branch which appears unprotected from backflow of RUBIN to LAD.
[2023-05-10] MEDS ORDERED: SODIUM CHLORIDE 0.9% 500 ML 500 ML IV ONE (14:30)
[2023-05-10 17:11] VITALS: BP 106/72; PULSE 62; RESP 20
== END 2023-05-10 17:05 | disposition home or self-care (01) ==
LOC: CATHCVL 10:11
PROVIDERS: ATTEND Internal Medicine
DX: I25.10 Atherosclerotic heart disease of native coronary artery without angina pectoris (principal); I48.91 Unspecified atrial fibrillation; I10 Essential (primary) hypertension; I49.5 Sick sinus syndrome; E66.9 Obesity, unspecified; Z68.30 Body mass index [BMI] 30.0-30.9, adult; Z95.5 Presence of coronary angioplasty implant and graft; Z79.01 Long term (current) use of anticoagulants; Z79.82 Long term (current) use of aspirin; Z88.6 Allergy status to analgesic agent; Z79.899 Other long term (current) drug therapy
CPT/HCPCS: 93459; 76937; C1760; C1769 ×3; C1894 ×2; J2250; J2001; Q9967; J3010

== ENCOUNTER → 2024-02-07 | Outpatient (CLI) | payer MEDICARE ==
--- NOTE | 2024-02-07 14:24 | MM ---
Reason for Exam: Screening (asymptomatic). Last mammogram was performed 1 year(s) and 2 month(s) ago. Patient History: Menarche at age 16. First Full-Term at age 20. Left ovary removed at age 51. Right ovary removed at age 51. Hysterectomy at age 51. Postmenopausal. Estrogen for 3 years from age 51 until age 54. Progesterone for 3 years from age 51 until age 54. 2016, Benign Excisional Biopsy on the left side. 09/10/2015, High risk Core Biopsy on the left side. Maternal aunt had breast cancer, age 60. Maternal aunt had breast cancer, age 62. Mother had breast cancer, age 82. Risk Values: Jessy 5 year model risk: 4.4%. NCI Lifetime model risk: 8.3%. Prior Study Comparison: 10/02/2021 Bilateral MG 3D screening mammo w/cad, [facility]. 10/07/2021 Right MG 3D work up w/cad RT, [facility]. 11/27/2022 Bilateral MG 3D diag mammo w/cad [facility], [facility]. Tissue Density: The breasts are almost entirely fatty. Findings: Analyzed By CAD. Right breast: There is no suspicious group of microcalcifications or new suspicious mass. Benign-appearing calcifications right breast. Left breast: There is no suspicious group of microcalcifications or new suspicious mass. Benign-appearing calcifications left breast. Overall Assessment: Benign, BI-RAD 2 Management: Screening Mammogram of both breasts in [address] [facility] will attempt to contact patient to return for supplemental views and ultrasound if indicated. Patient should continue monthly self-breast exams. A clinical breast exam by your physician is recommended on an annual basis. This exam should not preclude additional follow-up of suspicious palpable abnormalities. Note on Jessy scores and lifetime risk: 1. A Jessy score greater than 3% is considered moderate risk. If this is the case, consider specialist referral to assess eligibility for a risk reducing agent. 2. If overall lifetime risk for the development of breast cancer is 20% or higher, the patient may qualify for future screening with alternating mammogram and breast MRI. [facility], , 02/07/2024 2:21 PM. Electronically signed and approved by: Keith Perez DO
== END | disposition home or self-care (01) ==
LOC: RADMAMWWP 11:35
PROVIDERS: ATTEND Family Medicine
DX: Z12.31 Encounter for screening mammogram for malignant neoplasm of breast
CPT/HCPCS: 77063; 77067